=== PATIENT | female | born 1955 | race Caucasian/White ===

== ENCOUNTER → 2017-01-18 | Day surgery (SDC) | payer MEDICARE ==
[~2017-01-18] MED LIST: ATOR10TA PO; BALS750C PO; FLON0.053; GLUC1000 PO; HYDR10SO PO; HYDR12.56 PO; LACTATED RINGER'S 1000 ML INJ 1,000 ML ONE; LISI-363 PO; LORA-392 PO; LOSA25 PO; MIDAZOLAM HCL 2 MG/2 ML VIAL ONE; MS C60TA4 PO; ONABOTULINUMTOXINA INJ 100 UNITS/VIAL ONE; PREG100 PO; PROPOFOL 200 MG/20 ML AMP IV ONE; PROT40TA PO; SODIUM CHLORIDE 0.9% INJ 10 ML ONE; TIZA2TAB PO; TRAD5TAB PO; VENTAER INH
--- NOTE | 2017-01-18 08:54 | GIPROC ---
[facility] [address] [facility], [address] EGD PROCEDURE REPORT EXAM DATE: 01/18/2017 PATIENT NAME: Ashley Bernardo MR #: [id number] BIRTHDATE: 1955 ATTENDING: Samara Metz MD ORDER #: [id number] SENIOR FINANCIAL ACCOUNTANT: Kaia Moran RN and Miri Godinez [employer]OTH WINDING SUPERVISOR STATUS: outpatient INDICATIONS: The patient is a 61 yr old female here for an EGD due to gastroparesis PROCEDURE PERFORMED: EGD w/ biopsy EGD w/ directed submucosal injection(s), any substance MEDICATIONS: None and Per Anesthesia. TOPICAL ANESTHETIC: none CONSENT: The patient understands the risks and benefits of the procedure and understands that these risks include, but are not limited to: sedation, allergic reaction, infection, perforation and/or bleeding. Alternative means of evaluation and treatment include, among others: physical exam, x-rays, and/or surgical intervention. The patient elects to proceed with this endoscopic procedure. medical equipment was checked for proper function. Hand hygiene and appropriate measures for infection prevention was taken. After the risks, benefits and alternatives of the procedure were thoroughly explained, Informed consent was verified, confirmed and timeout was successfully executed by the treatment team. The patient was anesthetized with topical anesthesia and the EG-[id number] ([id number]) endoscope was introduced through the mouth and advanced to the second portion of the duodenum. Retroflexed views revealed a hiatal hernia The gastroscope was then slowly withdrawn and removed. Gastritis, healed ulcer antrum-biopsy esophagitis distal esophagus-biopsy. 100 units of BOTOX in pyloric channel -25 units/quadrant. ADVERSE EVENTS: There were no complications. IMPRESSIONS: 1. Gastritis, healed ulcer antrum-biopsy esophagitis distal esophagus-biopsy 2. Retroflexed views revealed a hiatal hernia RECOMMENDATIONS: 1. Await biopsy results. Biopsy results will not be ready for 7-10 days. If you don't hear from us in two weeks, call our office for biopsy results. 2. Anti-reflux regimen 3. Continue PPI 4. Avoid NSAIDS PATIENT CONDITION: stable DISPOSITION: Home REPEAT EXAM: EGD pending biopsy results Samara Metz MD eSigned: Samara Metz MD 01/18/2017 8:54 AM cc: Mariann Bajwa [facility] Ofelia Champion M.D. PATIENT NAME: Ashley Bernardo MR#: [id number]
== END | disposition home or self-care (01) ==
LOC: ESDC 07:27
PROVIDERS: ATTEND Internal Medicine Gastroenterology
DX: K31.84 Gastroparesis (principal); K44.9 Diaphragmatic hernia without obstruction or gangrene; K29.70 Gastritis, unspecified, without bleeding; K20.9 Esophagitis, unspecified
CPT/HCPCS: 00740; 00810; 43236; 43239; 88305; 88312; J0585; J2250; J3010; J7120

== ENCOUNTER 2017-03-21 10:37 | Emergency (ER) | payer MEDICARE ==
[~2017-03-21] VITALS: Ht 162.6 cm; Wt 113.0 kg
[~2017-03-21 10:37] MED LIST changes: -LACTATED RINGER'S 1000 ML INJ 1,000 ML ONE; -MIDAZOLAM HCL 2 MG/2 ML VIAL ONE; -ONABOTULINUMTOXINA INJ 100 UNITS/VIAL ONE; -PROPOFOL 200 MG/20 ML AMP IV ONE; -SODIUM CHLORIDE 0.9% INJ 10 ML ONE
[2017-03-21 10:43] VITALS: BP 144/71; PULSE 97; RESP 14; TEMP 98.3; O2SAT 94
[2017-03-21] MEDS ORDERED: ALPR.5 PO (10:51)
[2017-03-21] MEDS ORDERED: ZOFR4TAB PO (10:51)
[2017-03-21] MEDS ORDERED: FOLI400T PO (10:51)
[2017-03-21] MEDS ORDERED: SPIR50TA PO (10:51)
[2017-03-21] MEDS ORDERED: TRAM50TA PO (10:51)
[2017-03-21] MEDS ORDERED: FURO20TA PO (10:51)
[2017-03-21] MEDS ORDERED: LACT10SO PO (10:51)
[2017-03-21] MEDS ORDERED: PANT40TA3 PO (10:51)
[2017-03-21] MEDS ORDERED: SPIR100T PO (10:52)
[2017-03-21] MEDS ORDERED: FURO40TA PO (10:52)
[2017-03-21] MEDS ORDERED: HYDR-3583 PO (11:19)
[2017-03-21] MEDS ORDERED: VENTAER INH (11:19)
[2017-03-21] MEDS ORDERED: TIZA4CAP3 PO (11:19)
[2017-03-21] MEDS ORDERED: PRIM50TA5 PO (11:19)
[2017-03-21] MEDS ORDERED: METF1000 PO (11:19)
[2017-03-21] MEDS ORDERED: MORP1TAB26 PO (11:19)
[2017-03-21] MEDS ORDERED: FLUT1SPR5 EACH NARE (11:19)
[2017-03-21] MEDS ORDERED: ATOR10TA15 PO (11:19)
[2017-03-21] MEDS ORDERED: LOSA25TA PO (11:19)
[2017-03-21] MEDS ORDERED: LORA1TAB12 PO (11:19)
[2017-03-21] MEDS ORDERED: LYRI100C PO (11:19)
[2017-03-21] MEDS ORDERED: LISI-515 PO (11:19)
[2017-03-21] MEDS ORDERED: CIPR500T2 PO (11:19)
[2017-03-21] MEDS ORDERED: HYDR25TA5 PO (11:19)
[2017-03-21] MEDS ORDERED: TRAD5TAB PO (11:19)
[2017-03-21 11:39] LABS: BLOOD, URINE SMALL (NEG); GLUCOSE,URINE NEG (NEG); KETONE, URINE NEG (NEG); NITRITE,URINE NEG (NEG); PH, URINE 5.5 (5.0-8.5)
--- NOTE | 2017-03-21 11:52 | PD ---
HPI Chief Complaint: Complaint Time Seen by Provider: 11:04 Travel History International Travel<30 days: No Contact w/Intl Traveler<30days: No Traveled to known affect area: No History of Present Illness HPI Patient is a 61-year-old female presents emergency department for difficulty urinating, urgency, frequency and some irritation "down there" when she urinates. Patient states symptoms for the past few days constant, not associated with any abdominal pain nausea vomiting vaginal bleeding or vaginal discharge. No fevers. PFSH Past Medical History Asthma: Yes Blood Disorders: No Cancer: No Cardiovascular Problems: No Diabetes: Yes Patient Takes Glucophage: No Diminished Hearing: No Endocrine: Yes Gastrointestinal Disorders: Yes (hx of reflux and ulcers, GASTOPERESIS) GERD: Yes Glaucoma: No Genitourinary: No Hepatitis: No Hiatal Hernia: No Hypertension: Yes Immune Disorder: No Medical other: Yes (GERD, OCCASIONAL NAUSEA) Musculoskeletal: Yes (failed back syndrome) Neurologic: No Psychiatric: No Reproductive: No Respiratory: Yes (asthma) Immunizations Current: Yes Thyroid Disease: No Influenza Vaccination: Yes ?: Not Menopausal: Yes Past Surgical History Abdominal Surgery: Yes (lap cyrus) AICD: No Body Medical Devices: SPINAL STIMULATOR Cardiac Surgery: No Cholecystectomy: Yes Ear Surgery: No Endocrine Surgery: No Eye Surgery: No Genitourinary Surgery: No Gynecologic Surgery: Yes Hysterectomy: Yes Joint Replacement: No Neurologic Surgery: Yes (L4-5 LAMINECTOMY, SP. CD. STIMULATOR X3 (3 OUT)) Oral Surgery: No Pacemaker: No Thoracic Surgery: No Other Surgery: Yes Social History Alcohol Use: No Tobacco Use: No Substance Use: No Allergies-Medications (Allergen,Severity, Reaction): Coded Allergies: Adhesives (Verified Allergy, Mild, RASH, 05/29/16) Decadron (Verified Allergy, Mild, Flushing, 05/29/16) Amlodipine (Verified Allergy, Unknown, SWELLING, 05/29/16) Aspirin (Verified Allergy, Unknown, HAD CHILD, UNSURE O REACTION, ) Reported Meds & Prescriptions Reported Meds & Active Scripts Active Keflex (Cephalexin) 500 Mg Cap 500 Mg PO Q6H 7 Days Reported Ventolin Hfa 18 GM Inh (Albuterol Sulfate) 90 Mcg/Act Aer 2 Puff INH Q4-6H PRN Lorazepam 1 Mg Tab 1 Mg PO Q8H PRN Tizanidine (Tizanidine HCl) 4 Mg Cap 4 Mg PO TID Atorvastatin (Atorvastatin Calcium) 10 Mg Tab 10 Mg PO HS Primidone 50 Mg Tab 50 Mg PO BID Hydrocodone-Acetaminophen 10-325 mg Tab 1 Tab PO Q6H PRN Morphine ER (Morphine Sulfate) 60 Mg Tab 60 Mg PO Q8H Lyrica (Pregabalin) 100 Mg Cap 100 Mg PO TID Ciprofloxacin (Ciprofloxacin HCl) 500 Mg Tab 500 Mg PO BID Lisinopril 20 Mg Tab 20 Mg PO DAILY Losartan (Losartan Potassium) 25 Mg Tab 25 Mg PO DAILY Hydrochlorothiazide 25 Mg Tab 25 Mg PO DAILY Metformin (Metformin HCl) 1,000 Mg Tab 1,000 Mg PO BIDPC With meals Tradjenta (Linagliptin) 5 Mg Tab 5 Mg PO DAILY Flonase Nasal Zuni (Fluticasone Nasal Zuni) 50 Mcg/Act Zuni 50 Mcg EACH NARE BID Review of Systems Except as stated in HPI: all other systems reviewed are Neg Physical Exam Narrative GENERAL: Well-nourished, well-developed patient. SKIN: Focused skin assessment warm/dry. HEAD: Normocephalic. Atraumatic EYES: No scleral icterus. No injection or drainage. NECK: Supple, trachea midline. No JVD or lymphadenopathy. CARDIOVASCULAR: Regular rate and rhythm without murmurs, gallops, or rubs. RESPIRATORY: Breath sounds equal bilaterally. No accessory muscle use. GASTROINTESTINAL: Abdomen soft, non-tender, nondistended. MUSCULOSKELETAL: No cyanosis, or edema. BACK: Nontender without obvious deformity. No CVA tenderness. Data Data Last Documented VS Vital Signs Date Time Temp Pulse Resp B/P Pulse Ox O2 Delivery O2 Flow Rate FiO2 03/21/17 10:43 98.3 97 14 144/71 94 Room Air Orders Urinalysis - C+S If Indicated (03/21/17 10:39) Ed Poc Ultrasound (03/21/17 ) Urine Culture (03/21/17 11:24) Labs Laboratory Tests Test 03/21/17 11:24 Urine Collection Type CLEAN CATCH Urine Color YELLOW Urine Turbidity MOD Urine pH 5.5 Urine Specific Bowman 1.019 Urine Protein 300 OR GREATER mg/dL Urine Glucose (UA) NEG mg/dL Urine Ketones NEG mg/dL Urine Occult Blood SMALL Urine Nitrite NEG Urine Bilirubin NEG Urine Leukocyte Esterase SMALL Urine RBC 0-3 /hpf Urine WBC 100-200 /hpf Urine WBC Clumps MOD Urine Squamous Epithelial 6-8 /hpf Cells Urine Amorphous Sediment FEW Urine Bacteria MOD /hpf Microscopic Urinalysis Comment CULTURE INDICATED Urine Collection Time 1124 MDM Medical Decision Making Medical Screen Exam Complete: Yes Emergency Medical Condition: Yes Differential Diagnosis BV, CV, urinary tract infection. Narrative Course Patient roomed in emergency department, clumped white blood cells on her urine specimen nitrate negative. Small leukocyte esterase. 6-8 squamous epithelial cells. Could be contamination with vaginal specimen. The patient was offered a vaginal examination declined at this time. She appears well and in no obvious distress, afebrile vital signs are otherwise reassuring. Discussed them. Antibiotic therapy return to ED criteria need for follow-up with a primary care physician. She verbalized understanding and agreement. Diagnosis Primary Impression: Urinary tract infection Additional Instructions: Stop taking her Cipro. We will call you in 48 hours if your antibiotic needs changing based on your urine culture. Make sure to follow-up with your primary care physician. Return to the emergency Department with any fevers nausea or vomiting. Med/Other Pt SpecificInfo: Prescription(s) given Scripts Cephalexin (Keflex)500 Mg [id number] Mg PO Q6H 7 Days Ref 0 Prov:Dioni Payne MD 03/21/17 Disposition: 01 DISCHARGE HOME Condition: Stable Dioni Payne MD Mar 21, 2017 11:51
[2017-03-21 11:53] LABS: METHOD OF COLLECTION CLEAN CATCH; RBC, URINE 0-3 /hpf (0-3); URINE COLOR YELLOW (YELLW/STRAW); WBC, URINE 100-200 /hpf (0-5)
[2017-03-21 11:54] LABS: BACTERIA, URINE MOD /hpf; COMMENT (UR) CULTURE INDICATED; CULTURE IF INDICATED CULTURE INDICATED
[2017-03-21] MEDS ORDERED: CEPH-460 PO (12:07)
== END 2017-03-21 12:26 | disposition home or self-care (01) ==
LOC: PHED 10:37
DX: N39.0 Urinary tract infection, site not specified (principal); E11.9 Type 2 diabetes mellitus without complications; I10 Essential (primary) hypertension; Z79.84 Long term (current) use of oral hypoglycemic drugs; Z87.09 Personal history of other diseases of the respiratory system; Z87.19 Personal history of other diseases of the digestive system; Z87.39 Personal history of other diseases of the musculoskeletal system and connective tissue
CPT/HCPCS: 81001; 87086; 99284

== ENCOUNTER 2018-04-07 20:34 | Inpatient (IN) ==
--- NOTE | 2018-04-07 22:38 | ED ---
HPI General Chief complaint: Weakness Stated complaint: weakness/dizziness Time Seen by Provider: 04/07/18 21:48 Source: patient and family () Mode of arrival: ambulatory Limitations: no limitations History of Present Illness HPI Narrative: 62-year-old female who presents with 2 days of constant dizziness that waxes and wanes in severity and weakness that is generalized in nature. She reports some blurred/double vision which improves when she closed one or the other eye. No facial droop, no trouble swallowing, no dysarthria, no unilateral leg weakness, no numbness or tingling of extremities. No syncopal events or seizures. No chest pain, no shortness of breath, no headache , and no neck pain. Patient reports that her chronic low back pain is slightly worse than usual but that it is character has not changed significantly in the past 2 days. She is currently following with a neurologist who is working up her bilateral upper extremity tremors; these tremors have been present for at least 2 months and have been progressively worsening. She also reports some degree of imbalance over these past 2 months but not as bad as it was in the past 2 days. She was found to be hypoxic on room air in triage with an O2 sat that varies from 84% to 90% on room air. She does have a history of "asthma" and a remote history of cigarette smoking but she has never required oxygen at home. She has no history of pulmonary embolus or DVT. No unilateral leg swelling, no hemoptysis, no exogenous estrogen use. No history of heart failure or TN. No history of strokes. Time of onset was approximately 48 hours ago. MD Complaint: generalized weakness and difficulty walking Onset (ago): hour(s) Duration: constant Location: generalized Severity: moderate Related Data Home Medications Medication Instructions Recorded Confirmed albuterol sulfate [Ventolin HFA] 2 puff INHALATION Q4-6H PRN 04/07/18 04/07/18 atorvastatin 10 mg PO DAILY 04/07/18 04/08/18 hydrochlorothiazide 25 mg PO QAM 04/07/18 04/07/18 hydrocodone-acetaminophen 1 tab PO Q6H PRN 04/07/18 04/07/18 liothyronine 50 mcg PO DAILY 04/07/18 04/07/18 lisinopril 30 mg PO DAILY 04/07/18 04/08/18 lorazepam 1 mg PO BID 04/07/18 04/07/18 morphine 60 mg PO Q8H 04/07/18 04/07/18 oxymetazoline [Afrin 3 spray INTRANASAL Q12H PRN 04/07/18 04/07/18 (oxymetazoline)] paroxetine HCl 40 mg PO DAILY 04/07/18 04/07/18 pregabalin [Lyrica] 100 mg PO TID 04/07/18 04/07/18 primidone 50 mg PO ONCE PM 04/07/18 04/07/18 sitagliptin [Januvia] 100 mg PO DAILY 04/07/18 04/07/18 tizanidine 4 mg PO TID PRN 04/07/18 04/07/18 zolpidem 10 mg PO HS PRN 04/07/18 04/08/18 Allergies Allergy/AdvReac Type Severity Reaction Status Date / Time adhesive Allergy Mild RASH Verified 04/08/18 02:49 dexamethasone Allergy Mild Flushing Verified 04/08/18 02:49 amlodipine Allergy Unknown SWELLING Verified 04/08/18 02:49 aspirin Allergy Unknown HAD Verified 04/08/18 02:49 CHILD, UNSURE O REACTION Review of Systems ROS: all other systems reviewed are negative Constitutional Denies frequent falls, Reports lethargy and Reports weakness Eyes Reports blurry vision, Reports diplopia, Denies loss of peripheral vision and Reports requires corrective lenses ENT Reports post nasal drip, Reports sinus pressure and Reports sore throat Cardiovascular Denies chest pain, Denies diaphoresis and Reports dyspnea on exertion Respiratory Reports cough, Denies pain on inspiration, Reports dyspnea and Reports dyspnea on exertion PMFSH Medical History Medical History Asthma (Acute) Generalized anxiety disorder (Acute) H/O: hysterectomy (Acute) History of anemia (Acute) History of back pain (Acute) History of gastritis (Acute) Hypertension (Acute) Major depression (Acute) PTSD (post-traumatic stress disorder) (Acute) Tobacco use disorder, moderate, in sustained remission (Acute) Tremor (Acute) Surgical History Surgical History H/O breast biopsy (Acute) H/O laminectomy (Acute) Hx of cholecystectomy (Acute) Social History Social History Substance History: No History of Abuse Second Hand Smoke Exposure: No Smoking Status: Former smoker Cigarettes Per Day: 0.5 Years Smoked: 15 Pack-Years: 0.38 Smoking End Date: 1991 How Often Do You Have a Drink Containing Alcohol: Never Recent Travel in [place] within the Last 8 Weeks: No Recent Out of Country Travel within the Last 8 Weeks: No Immunization History Tetanus Immunization: <5 Years Exam Narrative Exam Narrative: GENERAL: Morbidly obese 62-year-old female sitting upright on stretcher, she appears older than stated age, at bedside SKIN: Focused skin assessment warm/dry. Well-healed midline lumbar scar. HEAD: Atraumatic. Normocephalic. EYES: Pupils equal and round. Normal extraocular movement and no nystagmus. No scleral icterus. No injection or drainage. ENT: No nasal bleeding or discharge. Mucous membranes pink and moist. NECK: Trachea midline. No JVD. CARDIOVASCULAR: Regular rate and rhythm. No murmur appreciated. 2+ equal pulses present in bilateral radial arteries and dorsalis pedis artery. RESPIRATORY: No accessory muscle use. Clear to auscultation. Breath sounds equal bilaterally. No wheezing and adequate airflow. GASTROINTESTINAL: Obese abdomen limits exam. Abdomen soft, non-tender, nondistended. Hepatic and splenic margins not palpable. MUSCULOSKELETAL: No obvious deformities. No clubbing. No cyanosis. No edema. NEUROLOGICAL: Awake and somewhat drowsy; patient has difficulty following sentences and requires repetition to understand their main ideas.. No obvious cranial nerve deficits. Motor grossly within normal limits. Normal sensation in all 4 extremities. Slowed but not slurred speech. I watched the patient stand up from bed under her own power and walk with a steady gait to the door the room turn around and walk back to her stretcher. Romberg negative. No pronator drift. Resting tremor present in both hands. PSYCHIATRIC: Appropriate mood and affect; insight and judgment normal. Course Reevaluation(s) Reevaluation #1: Patient has been stable while in the ED. Routine follow-up at this time reveals that she is maintaining her oxygen saturation well on 3 L nasal cannula. She continues to deny chest pain. I reviewed the results of her imaging studies and laboratory values with her. Patient has a significant hyponatremia, acute respiratory acidosis, and hypoxemia. Her CTA was negative for PE and her CT head was unremarkable although the top portion of her head was not included on the's exam. Plan to admit patient to hospital service for further evaluation and workup. Time: 00:58 Reevaluation #2: Spoke with Dr Jordan regarding the patient's case and informed him of new onset hypoxia with oxygen demand and respiratory acidosis with CO2 retention. He agrees that patient requires admission and will admit her to hospital for further evaluation and treatment. Initial Documented Vital Signs Temperature 99.3 F 04/07/18 20:41 Pulse Rate 79 04/07/18 20:41 Respiratory Rate 18 04/07/18 20:41 Blood Pressure 139/70 04/07/18 20:41 Pulse Oximetry 91 L 04/07/18 20:41 Last Documented Vital Signs Temperature 99.3 F 04/07/18 20:41 Pulse Rate 79 04/08/18 06:32 Respiratory Rate 14 04/08/18 06:32 Blood Pressure 125/53 L 04/08/18 06:32 Pulse Oximetry 96 04/08/18 06:32 Medical Decision Making MDM Narrative Medical decision making narrative: Patient symptoms are vague and difficult to workup; therefore will require a broad workup. Although her history initially sounded consistent with a possible posterior circulation stroke, neurological exam was essentially normal and there are no focal neurological signs that are consistent with a typical stroke pattern. No report of chest pain nor any obvious anginal symptoms. However the patient has a new oxygen requirement it was found to be hypoxemic on room air in triage. When she is on room air and talking she can desaturate as low as 80%; conversely on 2-3 L/min via nasal cannula the patient's SPO2 improves to 97%. Given her relative immobility and new hypoxemia with oxygen demand I will evaluate the patient for PE with a CT angiogram of her pulmonary arteries. Will obtain arterial blood gas to evaluate for CO2 retention. Differential Diagnosis Differential Diagnosis: Pulmonary embolus versus pneumonia versus COPD exacerbation versus pulmonary edema versus new onset heart failure versus new onset kidney failure versus volume overload Medical Records Medical records reviewed: Yes I reviewed the patient's medical records. Lab Data Lab results reviewed: Yes I reviewed the patient's lab results. Lab results narrative: Arterial blood gas reveals patient has a significant respiratory acidosis without metabolic compensation. She also mildly hyponatremic and has a mildly elevated creatinine. Result diagrams: 04/07/18 22:50 04/08/18 05:00 Lab Results 04/07/18 04/07/18 04/07/18 Range/Units 22:50 22:50 22:50 CBC w Diff Auto diff final WBC 6.1 (4.0-11.0) th/mm3 RBC 4.32 (4.00-5.30) mil/mm3 Hgb 11.1 L (11.6-15.3) gm/dL Hct 34.8 L (35.0-46.0) % MCV 80.5 (80.0-100.0) fL MCH 25.8 L (27.0-34.0) pg MCHC 32.0 (32.0-36.0) % RDW 15.4 (11.6-17.2) % Plt Count 281 (150-450) th/mm3 MPV 8.4 (7.0-11.0) fL Neut % (Auto) 66.1 (16.0-70.0) % Lymph % (Auto) 25.7 (9.0-44.0) % [place] % (Auto) 6.2 (0.0-8.0) % Eos % (Auto) 1.0 (0.0-4.0) % Baso % (Auto) 1.0 (0.0-2.0) % Neut # (Auto) 3.9 (1.8-7.7) th/mm3 Lymph # (Auto) 1.6 (1.0-4.8) th/mm3 [place] # (Auto) 0.4 (0.0-0.9) th/mm3 Eos # (Auto) 0.1 (0.0-0.4) th/mm3 Baso # (Auto) 0.1 (0.0-0.2) th/mm3 WBC Differential . Differential Comment . Puncture Site Patient Temperature O2 Saturation (90-100) % ABG pH (7.380-7.420) ABG pCO2 (38-42) mmHg ABG pO2 (61-120) mmHg ABG HCO3 (22-26) mmol/L ABG O2 Content (12.0-20.0) Vol % ABG Base Excess (-2-2) mmol/L ABG Methemoglobin (0-2) % Brayan Test Hemoglobin (12.0-16.0) G/DL Carboxyhemoglobin (0-4) % O2 Delivery Device Liter Flow L/M Inspired O2 % Critical Value Sodium 127 L (136-145) meq/L Potassium 4.6 (3.5-5.1) meq/L Chloride 94 L (98-107) meq/L Carbon Dioxide 27.4 (21.0-32.0) meq/L Anion Gap 6 (5-15) meq/L BUN 37 H (7-18) mg/dL Creatinine 1.60 H (0.50-1.00) mg/dL Estimated GFR 33 L (>89) mL/min POC Glucose (68-110) mg/dl Random Glucose 150 H (74-106) mg/dL Calcium 8.4 L (8.5-10.1) mg/dL Total Bilirubin 0.3 (0.2-1.0) mg/dL AST 14 L (15-37) U/L ALT 18 (10-53) U/L Alkaline Phosphatase 114 (45-117) U/L Troponin I Less than 0.02 L (0.02-0.05) ng/mL C-Reactive Protein (0.00-0.30) mg/dL B-Natriuretic Peptide 115 H (0-100) pg/mL Total Protein 7.8 (6.4-8.2) g/dL Albumin 3.5 (3.4-5.0) g/dL Urine Color (Yellw/Straw) Urine Clarity (Clear) Urine pH (5.0-8.5) Ur Specific [place] (1.002-1.035) Urine Protein (Neg-Trace) mg/dL Urine Glucose (UA) (Negative) mg/dL Urine Ketones (Negative) mg/dL Urine Occult Blood (Negative) Urine Nitrate (Negative) Urine Bilirubin (Negative) Urine Urobilinogen (Less than 2) mg/dL Ur Leukocyte Esterase (Negative) Urine RBC (0-3) /hpf Urine WBC (0-5) /hpf Ur Squamous Epith Cells (0-5) /hpf Ur Renal Epithelial Cell (None) /hpf Micro UA Comment Urine Culture Comments 04/07/18 04/07/18 04/08/18 Range/Units 22:50 22:54 02:15 CBC w Diff WBC (4.0-11.0) th/mm3 RBC (4.00-5.30) mil/mm3 Hgb (11.6-15.3) gm/dL Hct (35.0-46.0) % MCV (80.0-100.0) fL MCH (27.0-34.0) pg MCHC (32.0-36.0) % RDW (11.6-17.2) % Plt Count (150-450) th/mm3 MPV (7.0-11.0) fL Neut % (Auto) (16.0-70.0) % Lymph % (Auto) (9.0-44.0) % [place] % (Auto) (0.0-8.0) % Eos % (Auto) (0.0-4.0) % Baso % (Auto) (0.0-2.0) % Neut # (Auto) (1.8-7.7) th/mm3 Lymph # (Auto) (1.0-4.8) th/mm3 [place] # (Auto) (0.0-0.9) th/mm3 Eos # (Auto) (0.0-0.4) th/mm3 Baso # (Auto) (0.0-0.2) th/mm3 WBC Differential Differential Comment Puncture Site Right radial Right brachial Patient Temperature 98.6 98.6 O2 Saturation 88 L* 98 (90-100) % ABG pH 7.25 L* 7.23 L* (7.380-7.420) ABG pCO2 60 H* 64 H* (38-42) mmHg ABG pO2 64 110 (61-120) mmHg ABG HCO3 25 26 (22-26) mmol/L ABG O2 Content 13.1 14.6 (12.0-20.0) Vol % ABG Base Excess -1.0 -0.9 (-2-2) mmol/L ABG Methemoglobin 1.2 0.5 (0-2) % Brayan Test Y Y Hemoglobin 10.5 L 10.5 L (12.0-16.0) G/DL Carboxyhemoglobin 1.6 1.4 (0-4) % O2 Delivery Device Nasal cannula Liter Flow 3.00 L/M Inspired O2 21 % Critical Value Yes Yes Sodium (136-145) meq/L Potassium (3.5-5.1) meq/L Chloride (98-107) meq/L Carbon Dioxide (21.0-32.0) meq/L Anion Gap (5-15) meq/L BUN (7-18) mg/dL Creatinine (0.50-1.00) mg/dL Estimated GFR (>89) mL/min POC Glucose (68-110) mg/dl Random Glucose (74-106) mg/dL Calcium (8.5-10.1) mg/dL Total Bilirubin (0.2-1.0) mg/dL AST (15-37) U/L ALT (10-53) U/L Alkaline Phosphatase (45-117) U/L Troponin I (0.02-0.05) ng/mL C-Reactive Protein (0.00-0.30) mg/dL B-Natriuretic Peptide (0-100) pg/mL Total Protein (6.4-8.2) g/dL Albumin (3.4-5.0) g/dL Urine Color Yellow (Yellw/Straw) Urine Clarity Clear (Clear) Urine pH 5.0 (5.0-8.5) Ur Specific [place] 1.010 (1.002-1.035) Urine Protein Negative (Neg-Trace) mg/dL Urine Glucose (UA) Negative (Negative) mg/dL Urine Ketones Negative (Negative) mg/dL Urine Occult Blood Negative (Negative) Urine Nitrate Negative (Negative) Urine Bilirubin Negative (Negative) Urine Urobilinogen 0.2 (Less than 2) mg/dL Ur Leukocyte Esterase Negative (Negative) Urine RBC 0-3 (0-3) /hpf Urine WBC 0-5 (0-5) /hpf Ur Squamous Epith Cells 0-5 (0-5) /hpf Ur Renal Epithelial Cell 1-5 H (None) /hpf Micro UA Comment Culture not ind Urine Culture Comments Culture not ind 04/08/18 04/08/18 04/08/18 Range/Units 05:00 05:28 07:31 CBC w Diff WBC (4.0-11.0) th/mm3 RBC (4.00-5.30) mil/mm3 Hgb (11.6-15.3) gm/dL Hct (35.0-46.0) % MCV (80.0-100.0) fL MCH (27.0-34.0) pg MCHC (32.0-36.0) % RDW (11.6-17.2) % Plt Count (150-450) th/mm3 MPV (7.0-11.0) fL Neut % (Auto) (16.0-70.0) % Lymph % (Auto) (9.0-44.0) % [place] % (Auto) (0.0-8.0) % Eos % (Auto) (0.0-4.0) % Baso % (Auto) (0.0-2.0) % Neut # (Auto) (1.8-7.7) th/mm3 Lymph # (Auto) (1.0-4.8) th/mm3 [place] # (Auto) (0.0-0.9) th/mm3 Eos # (Auto) (0.0-0.4) th/mm3 Baso # (Auto) (0.0-0.2) th/mm3 WBC Differential Differential Comment Puncture Site Right brachial Patient Temperature 98.6 O2 Saturation 93 (90-100) % ABG pH 7.24 L* (7.380-7.420) ABG pCO2 63 H* (38-42) mmHg ABG pO2 79 (61-120) mmHg ABG HCO3 26 (22-26) mmol/L ABG O2 Content 13.5 (12.0-20.0) Vol % ABG Base Excess -0.6 (-2-2) mmol/L ABG Methemoglobin 1.3 (0-2) % Brayan Test Y Hemoglobin 10.2 L (12.0-16.0) G/DL Carboxyhemoglobin 1.5 (0-4) % O2 Delivery Device Nasal cannula Liter Flow 1.00 L/M Inspired O2 % Critical Value Yes Sodium 130 L (136-145) meq/L Potassium 4.5 (3.5-5.1) meq/L Chloride 98 (98-107) meq/L Carbon Dioxide 26.8 (21.0-32.0) meq/L Anion Gap 5 (5-15) meq/L BUN 32 H (7-18) mg/dL Creatinine 1.40 H (0.50-1.00) mg/dL Estimated GFR 38 L (>89) mL/min POC Glucose 127 H (68-110) mg/dl Random Glucose 111 H (74-106) mg/dL Calcium 8.0 L (8.5-10.1) mg/dL Total Bilirubin (0.2-1.0) mg/dL AST (15-37) U/L ALT (10-53) U/L Alkaline Phosphatase (45-117) U/L Troponin I (0.02-0.05) ng/mL C-Reactive Protein 1.14 H (0.00-0.30) mg/dL B-Natriuretic Peptide (0-100) pg/mL Total Protein (6.4-8.2) g/dL Albumin (3.4-5.0) g/dL Urine Color (Yellw/Straw) Urine Clarity (Clear) Urine pH (5.0-8.5) Ur Specific [place] (1.002-1.035) Urine Protein (Neg-Trace) mg/dL Urine Glucose (UA) (Negative) mg/dL Urine Ketones (Negative) mg/dL Urine Occult Blood (Negative) Urine Nitrate (Negative) Urine Bilirubin (Negative) Urine Urobilinogen (Less than 2) mg/dL Ur Leukocyte Esterase (Negative) Urine RBC (0-3) /hpf Urine WBC (0-5) /hpf Ur Squamous Epith Cells (0-5) /hpf Ur Renal Epithelial Cell (None) /hpf Micro UA Comment Urine Culture Comments Imaging Data Radiologist's impression: Chest X-Ray 04/07/18 22:26 CONCLUSION: No evidence of acute cardiopulmonary process. Head CT 04/07/18 22:26 CONCLUSION: 1. No acute intracranial abnormality is identified. 2. Please note that the entire superior aspect of the head was not imaged. . Chest CTA 04/08/18 00:18 CONCLUSION: 1. No PE or acute abnormality is identified to explain the patient's shortness of breath. 2. Intra and extrahepatic bile duct dilatation in this patient post cholecystectomy. The biliary system was dilated to some degree on the prior study from July 2014 suggesting that this is a chronic finding. 3. Coronary artery calcification. ECG Data EKG Prior to Arrival: No Attestation: I personally reviewed and interpreted this ECG as follows: Interpretation: Normal sinus rhythm, rate 76 bpm, WI interval 202 ms, QRS duration 88 ms, QTc 380 ms, no ST segment or T-wave changes, no ST segment elevation or depression, not a STEMI Discharge Plan Discharge Disposition Patient Disposition: 30 Still Patient Physicians Team ED Provider: Gonzalez Mccabe Primary Care Provider: Yash Brock Attending Provider: Jackson Crow Other Providers: Ba Dutton David Discharge Interventions Interventions: ED Discharge Assessment Last Done: 04/08/18 07:20 Vital Signs Last Done: 04/08/18 01:42 Status ED Status: Left Department Discharge Information Discharge Date/Time: 04/08/18 07:15
--- NOTE | 2018-04-07 22:50 | XR ---
EXAM DATE: 04/07/2018 10:47 PM EDT AGE/SEX: 62 years / Female INDICATIONS: Short of breath and dizziness since yesterday. CLINICAL DATA: This is the patient's initial encounter. Patient reports that signs and symptoms have been present for 1 day and indicates a pain score of 0/10. MEDICAL/SURGICAL HISTORY: None. None. COMPARISON: No prior exams available for comparison. FINDINGS: A single AP view of the chest demonstrates the lungs to be symmetrically aerated without evidence of mass, infiltrate or effusion. The cardiomediastinal contours are unremarkable. Osseous structures a re intact. CONCLUSION: No evidence of acute cardiopulmonary process. Electronically signed by: Kelvin Oakley MD 04/07/2018 10:48 PM EDT
[2018-04-07 23:04] LABS: Baso # (Auto) 0.1 th/mm3 (0.0-0.2); Eos # (Auto) 0.1 th/mm3 (0.0-0.4); Hematocrit 34.8 % (35.0-46.0); Hemoglobin 11.1 gm/dL (11.6-15.3); Lymph # (Auto) 1.6 th/mm3 (1.0-4.8); Lymph % (Auto) 25.7 % (9.0-44.0); Mean Corpuscular Hemoglobin 25.8 pg (27.0-34.0); Mean Corpuscular Volume 80.5 fL (80.0-100.0); Mean Platelet Volume 8.4 fL (7.0-11.0); Mono # (Auto) 0.4 th/mm3 (0.0-0.9); Mono % (Auto) 6.2 % (0.0-8.0); Neut # (Auto) 3.9 th/mm3 (1.8-7.7); Neut % (Auto) 66.1 % (16.0-70.0); Platelet Count 281 th/mm3 (150-450); Red Blood Count 4.32 mil/mm3 (4.00-5.30); Red Cell Distribution Width 15.4 % (11.6-17.2); White Blood Count 6.1 th/mm3 (4.0-11.0)
[2018-04-07 23:07] LABS: ABG PCO2 60 mmHg (38-42); ABG PO2 64 mmHg (61-120)
[2018-04-07 23:08] LABS: Bilirubin,Urine Negative (Negative); Clarity,Urine Clear (Clear); Color,Urine Yellow (Yellw/Straw); Glucose,Urine (UA) Negative (Negative); Leukocyte Esterase,Urine Negative (Negative); Nitrite,Urine Negative (Negative); Urobilinogen,Urine 0.2 mg/dL (Less than 2)
[2018-04-07 23:12] LABS: Chloride 94 meq/L (98-107); Potassium 4.6 meq/L (3.5-5.1); Sodium 127 meq/L (136-145)
[2018-04-07 23:15] LABS: Calcium 8.4 mg/dL (8.5-10.1)
[2018-04-07 23:16] LABS: Albumin 3.5 g/dL (3.4-5.0); Anion Gap 6 meq/L (5-15); Blood Urea Nitrogen 37 mg/dL (7-18); Carbon Dioxide 27.4 meq/L (21.0-32.0); Glucose,Random 150 mg/dL (74-106); RBC,Urine 0-3 /hpf (0-3); Squamous Epithelial Cell,Urine 0-5 /hpf (0-5); WBC,Urine 0-5 /hpf (0-5)
[2018-04-07 23:19] LABS: Alanine Aminotransferase 18 U/L (10-53); Aspartate Aminotransferase 14 U/L (15-37); Glomerular Filtration Rate 33 mL/min (>89)
[2018-04-07 23:20] LABS: Total Protein 7.8 g/dL (6.4-8.2)
[2018-04-07 23:22] LABS: Alkaline Phosphatase 114 U/L (45-117)
--- NOTE | 2018-04-08 00:38 | CT ---
EXAM DATE: 04/08/2018 12:23 AM EDT AGE/SEX: 62 years / Female INDICATIONS: Dizziness. CLINICAL DATA: This is the patient's initial encounter. Patient reports that signs and symptoms have been present for 1 day and indicates a pain score of 0/10. MEDICAL/SURGICAL HISTORY: Asthma. Gastritis. None. RADIATION DOSE: 69.65 CTDI (mGy) COMPARISON: No prior exams available for comparison. TECHNIQUE: CT of the head without contrast. Using automated exposure control and adjustment of the mA and/or kV according to patient size, radiation dose was kept as low as reasonably achievable to ob tain optimal diagnostic quality images. DICOM format image data is available electronically for revi ew and comparison. FINDINGS: Please note that the entire superior aspect of the head was not imaged. Cerebrum: The ventricles are normal. No midline shift, mass lesion, hemorrhage or acute infarction. No extraaxial fluid collections are seen. Posterior Fossa: The cerebellum and brainstem demonstrate no acute abnormality. The 4th ventricle is midline. The cerebellopontine angle is within normal limits. Extracranial: The visualized sinuses are clear. Skull: The calvaria is intact. No skull fracture. CONCLUSION: 1. No acute intracranial abnormality is identified. 2. Please note that the entire superior aspect of the head was not imaged. . Electronically signed by: Ba Mackay MD 04/08/2018 12:36 AM EDT
--- NOTE | 2018-04-08 00:43 | CT ---
EXAM DATE: 04/08/2018 12:22 AM EDT AGE/SEX: 62 years / Female INDICATIONS: Shortness of breath. CLINICAL DATA: This is the patient's initial encounter. Patient reports that signs and symptoms have been present for 1 day and indicates a pain score of 2/10. MEDICAL/SURGICAL HISTORY: Asthma. None. RADIATION DOSE: 21.83 CTDI (mGy) COMPARISON: C, CTA ABDOMEN & PELVIS W 3D RECON, 08/16/2014. . TECHNIQUE: Volumetric scanning was performed using a multi-row detector CT scanner during bolus infu bindu of 75 ml Visipaque 320 (iodixanol) nonionic water-soluble contrast as a single exam dose. The d dwayne was post processed with a variety of visualization algorithms including full volume maximum inten sity projection and sliding thin slab reformation. Using automated exposure control and adjustment o f the mA and/or kV according to patient size, radiation dose was kept as low as reasonably achievable to obtain optimal diagnostic quality images. DICOM format image data is available electronically fo r review and comparison. FINDINGS: Pulmonary Arteries: No filling defect is identified through the segmental and some of the subsegmenta l level pulmonary arteries. Lungs: No consolidation or pneumothorax is identified. Mediastinum: The heart and great vessels demonstrate no acute abnormality. No lymphadenopathy is vis ualized. There is coronary artery calcification. Pleurae: No pleural effusion or pleural thickening. Axillae: No lymphadenopathy. Musculoskeletal: No acute osseous abnormality is identified. There are degenerative changes of the t horacic spine. Other: Visualized upper abdominal structures demonstrate no acute abnormality. Gallbladder is absent with clips in the gallbladder fossa and intra and extrahepatic bile duct dilatation with the mid com mon bile duct measuring up to 14 mm. The common bile duct was dilated to some degree on the prior mathew dy. CONCLUSION: 1. No PE or acute abnormality is identified to explain the patient's shortness of breath. 2. Intra and extrahepatic bile duct dilatation in this patient post cholecystectomy. The biliary sys tem was dilated to some degree on the prior study from July 2014 suggesting that this is a chroni c finding. 3. Coronary artery calcification. Electronically signed by: Ba Mackay MD 04/08/2018 12:42 AM EDT
[2018-04-08 02:28] LABS: ABG Base Excess -0.9 mmol/L (-2-2); ABG PCO2 64 mmHg (38-42); ABG PO2 110 mmHg (61-120)
[2018-04-08] MEDS ORDERED: LORazepam 1 MG Tablet PO PRN (02:37)
[2018-04-08] MEDS: Sod Chloride 0.9% Inj 1,000 ML IV.CONT SCH ×3 (02:57→22:35)
[2018-04-08 05:17] LABS: Potassium 4.5 meq/L (3.5-5.1)
[2018-04-08 05:20] LABS: Carbon Dioxide 26.8 meq/L (21.0-32.0)
[2018-04-08 05:23] LABS: C-Reactive Protein 1.14 mg/dL (0.00-0.30)
[2018-04-08 05:41] LABS: ABG Base Excess -0.6 mmol/L (-2-2); ABG PCO2 63 mmHg (38-42); ABG PO2 79 mmHg (61-120)
--- NOTE | 2018-04-08 05:47 | P.HP ---
History of Present Illness Service: [facility] Adult med Primary Care Physician: Yash Brock MD Chief Complaint: weakness, double vision, tremors History of Present Illness: 62-year-old morbidly obese female with underlying major depression, PTSD, chronic back pain leading to disability presents with 2 days of constant dizziness that waxes and wanes in severity and weakness that is generalized in nature. She reports some blurred/double vision which improves when she closed one or the other eye. No facial droop, no trouble swallowing, no dysarthria, no unilateral leg weakness, no numbness or tingling of extremities. No syncopal events or seizures. No chest pain, no shortness of breath, no headache , and no neck pain. Patient reports that her chronic low back pain is slightly worse than usual but that its character has not changed significantly in the past 2 days. She is currently following with a neurologist who is working up her bilateral upper extremity tremors; these tremors have been present for at least 2 months and have been progressively worsening and of late have been involving lower extremities as well. She also reports some degree of imbalance over these past 2 months but not as bad as it was in the past 2 days. She was found to be hypoxic on room air in triage with an O2 sat that varies from 84% to 90% on room air. She does have a history of "asthma" and a remote history of cigarette smoking but she has never required oxygen at home. She has no history of pulmonary embolus or DVT. No unilateral leg swelling, no hemoptysis , no exogenous estrogen use. No history of heart failure or HI. No history of strokes. Time of onset was approximately 48 hours ago. It is noted on outpatient record review that her sats are often in the low 90s when she is in the office. 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 She likely has some underlying obesity/hypoxemia syndrome. She reports that she has never had a sleep study and doesn't wear CPAP. ER workup negative for pulmonary embolus or any significant acute findings in the chest. CT brain negative for acute findings. Creatinine a bit elevated at 1.6 which is above her baseline creatinine of around 1-1.1. She is mildly anemic which is chronic and stable. - Diagnosis (1) Transient neurological symptoms (2) Hypoxia (3) Polypharmacy (4) Renal insufficiency, mild Review of Systems Constitutional: Reports body ache(s), Reports lack of energy, Reports weakness Eyes: Reports blurry vision, Reports double vision, Denies blind spots, Denies bulging eyes, Denies change in vision, Denies discharge, Denies dry eyes, Denies floaters, Denies irritation, Denies itchy eyes, Denies loss of vision, Denies pain, Denies requires corrective lenses, Denies sensitivity to light, Denies other Ears, Nose, Mouth, and Throat: Denies abnormal hearing, Denies bleeding gums, Denies bad breath, Denies change in voice, Denies dental pain, Denies difficulty swallowing, Denies dizziness, Denies dry mouth, Denies ear discharge , Denies ear pain, Denies facial pain, Denies headache(s), Denies hearing loss, Denies hoarseness, Denies lip swelling, Denies nosebleed, Denies mouth lesions, Denies mouth pain, Denies nasal congestion, Denies nasal discharge, Denies nasal obstruction, Denies nasal trauma, Denies neck lump, Denies neck pain, Denies nose pain, Denies pain with swallowing, Denies poor balance, Denies post nasal drip, Denies ringing in the ears, Denies sinus pain, Denies sinus pressure , Denies sore throat, Denies throat swelling, Denies tongue swelling, Denies other Cardiovascular: Reports lightheadedness, Denies chest pain, Denies chest pain at rest, Denies chest pain with activity, Denies excessive sweating, Denies fainting, Denies fast heart rate, Denies foot swelling, Denies generalized swelling, Denies irregular heart rhythm, Denies leg pain with activity, Denies leg sores, Denies leg swelling, Denies radiating jaw, neck or arm pain, Denies rapid, pounding, or irregular heartbeat, Denies shortness of breath, Denies shortness of breath with activity, Denies shortness of breath when lying down, Denies shortness of breath causing sudden awakening, Denies slow heart rate, Denies other Respiratory: Denies change in phlegm color, Denies chest congestion, Denies cough, Denies coughing up blood, Denies excessive phlegm production, Denies pain on inspiration, Denies pain with cough, Denies shortness of breath, Denies shortness of breath with activity, Denies snoring, Denies stridor, Denies wheezing, Denies other Musculoskeletal: Reports abnormal walking, Reports joint pain, Reports muscle cramps, Reports neck pain Neurologic: Reports dizziness, Reports other visual disturbances, Reports restless legs, Reports tremor(s), Reports unsteadiness, Reports weakness, Denies abnormal hearing, Denies abnormal movements, Denies abnormal speech, Denies abnormal walking, Denies behavioral changes, Denies burning sensations, Denies confusion, Denies fainting, Denies frequent falls, Denies headache(s), Denies lack of coordination, Denies localized weakness, Denies loss of vision, Denies memory loss, Denies numbness, Denies radiating pain, Denies convulsions, Denies seizure-like activity, Denies sensory deficit, Denies tingling, Denies tingling/numbness/burning sensations, Denies other Psychiatric: Reports anxiety, Reports depression, Reports difficulty concentrating Endocrine: Denies cold intolerance, Denies excessive sweating, Denies flushing, Denies heat intolerance, Denies increased hunger, Denies increased thirst, Denies increased urination, Denies rapid, pounding, or irregular heartbeat, Denies other PMFSH - History History Provided By: Patient - Medical History Medical History: Medical History (Last Updated 04/08/18 @ 05:36 by Jackson Crow MD, PhD) Asthma Generalized anxiety disorder H/O: hysterectomy History of anemia History of back pain History of gastritis Hypertension Major depression PTSD (post-traumatic stress disorder) Tobacco use disorder, moderate, in sustained remission Tremor - Surgical History Surgical History: Surgical History (Last Updated 04/08/18 @ 05:36 by Jackson Crow MD, PhD) H/O breast biopsy H/O laminectomy Hx of cholecystectomy - Tobacco History Second Hand Smoke Exposure: No Tobacco Use In Past 30 Days: No Smoking Status: Former smoker Cigarettes Per Day: 0.5 Years Smoked: 15 Smoking End Date: 1991 - Alcohol History How Often Do You Have a Drink Containing Alcohol: Never - Substance Use History Substance History: No History of Abuse - Travel History Recent Travel in the [facility] Within the Last 8 Weeks: No Recent Travel Out of the Country Within the Last 8 Weeks: No - Immunization History Tetanus Immunization: <5 Years Medications and Allergies Active Medications: Active Medications Hydrocodone Bitart/Acetaminophen (Harrison 10/325) 1 tab PO Q6H PRN PRN Reason: breakthrough pain level 3-10 Albuterol (Duoneb Neb (Prn)) 1 ampul NEB Q4HR NEB PRN PRN Reason: wheeze, sob Sodium Chloride (Ns Inj) 1,000 mls @ 100 mls/hr IV.CONT .Q10H [place] Last Admin: 04/08/18 02:57 Dose: 100 mls/hr Liothyronine Sodium (Cytomel) 50 mcg PO DAILY@0600 [place] Lisinopril (Prinivil) 30 mg PO DAILY [place] Lorazepam (Ativan) 1 mg PO BID PRN PRN Reason: ANXIETY Morphine Sulfate (Oramorph Sr) 60 mg PO Q8HR [place] Paroxetine HCl (Paxil) 40 mg PO DAILY [place] Pregabalin (Lyrica) 100 mg PO TID [place] Primidone (Mysoline) 50 mg PO HS [place] Sodium Chloride (Ns Flush) 2 ml IV.FLUSH PRN PRN PRN Reason: FLUSH AFTER USING IV ACCESS Tizanidine HCl (Zanaflex) 4 mg PO TID PRN PRN Reason: MUSCLE SPASM Allergies Allergy/AdvReac Type Severity Reaction Status Date / Time adhesive Allergy Mild RASH Verified 04/08/18 02:49 dexamethasone Allergy Mild Flushing Verified 04/08/18 02:49 amlodipine Allergy Unknown SWELLING Verified 04/08/18 02:49 aspirin Allergy Unknown HAD Verified 04/08/18 02:49 CHILD, UNSURE O REACTION Home Medications Medication Instructions Recorded Confirmed Type albuterol sulfate [Ventolin HFA] 2 puff INHALATION Q4-6H PRN 04/07/18 04/07/18 History atorvastatin 10 mg PO DAILY 04/07/18 04/08/18 History hydrochlorothiazide 25 mg PO QAM 04/07/18 04/07/18 History hydrocodone-acetaminophen 1 tab PO Q6H PRN 04/07/18 04/07/18 History liothyronine 50 mcg PO DAILY 04/07/18 04/07/18 History lisinopril 30 mg PO DAILY 04/07/18 04/08/18 History lorazepam 1 mg PO BID 04/07/18 04/07/18 History morphine 60 mg PO Q8H 04/07/18 04/07/18 History oxymetazoline [Afrin 3 spray INTRANASAL Q12H PRN 04/07/18 04/07/18 History (oxymetazoline)] paroxetine HCl 40 mg PO DAILY 04/07/18 04/07/18 History pregabalin [Lyrica] 100 mg PO TID 04/07/18 04/07/18 History primidone 50 mg PO ONCE PM 04/07/18 04/07/18 History sitagliptin [Januvia] 100 mg PO DAILY 04/07/18 04/07/18 History tizanidine 4 mg PO TID PRN 04/07/18 04/07/18 History zolpidem 10 mg PO HS PRN 04/07/18 04/08/18 History Exam Vital signs: Vital Signs 04/07/18 20:41 04/07/18 23:10 04/07/18 23:14 Temperature 99.3 F Pulse Rate 79 88 Respiratory Rate 18 18 Blood Pressure 139/70 158/63 H Pulse Oximetry 91 L 95 96 04/08/18 01:42 04/08/18 02:20 04/08/18 02:30 Temperature Pulse Rate 78 75 77 Respiratory Rate 18 18 16 Blood Pressure 148/73 H 115/60 Pulse Oximetry 98 Intake & Output 04/07/18 04/07/18 04/08/18 06:59 18:59 06:59 Weight 148.6 kg Narrative: GENERAL: Morbidly obese, somewhat lethargic but arouses to voice. No acute distress. Does become somewhat anxious at times during interview process. SKIN: Warm and dry. HEAD: Atraumatic. Normocephalic. Corrective eyewear in place. EYES: Pupils equal and round. No scleral icterus. No injection or drainage. Slight lateral nystagmus at times. ENT: No nasal bleeding or discharge. Mucous membranes pink and moist. NECK: Trachea midline. No JVD. CARDIOVASCULAR: Regular rate and rhythm. No significant murmurs. RESPIRATORY: No accessory muscle use. Clear to auscultation. Breath sounds equal bilaterally. Decreased breath sound at bases. GASTROINTESTINAL: Abdomen soft, non-tender, nondistended. Hepatic and splenic margins not palpable. Bowel sounds normal. MUSCULOSKELETAL: Extremities without clubbing, cyanosis, or edema. No obvious deformities. Moves all extremities well. Slight tremor at rest noted in hands and occasionally and feet. She occasionally demonstrates a jerking motion particularly of her left lower extremity. NEUROLOGICAL: Awake and alert. No obvious cranial nerve deficits. Motor grossly within normal limits. Five out of 5 muscle strength in the arms and legs. Normal speech. She does have periods where she tends to stare off into space at times and needs to be redirected or refocused. PSYCHIATRIC: Appropriate mood and affect; insight and judgment normal. Results - Labs CBC & Chem 7: 04/07/18 22:50 04/08/18 05:00 Labs: Laboratory Results - last 24 hr 04/07/18 04/07/18 04/07/18 22:50 22:50 22:50 CBC w Diff Auto diff final WBC 6.1 RBC 4.32 Hgb 11.1 L Hct 34.8 L MCV 80.5 MCH 25.8 L MCHC 32.0 RDW 15.4 Plt Count 281 MPV 8.4 Neut % (Auto) 66.1 Lymph % (Auto) 25.7 [place] % (Auto) 6.2 Eos % (Auto) 1.0 Baso % (Auto) 1.0 Neut # (Auto) 3.9 Lymph # (Auto) 1.6 [place] # (Auto) 0.4 Eos # (Auto) 0.1 Baso # (Auto) 0.1 WBC Differential . Differential Comment . Puncture Site Patient Temperature O2 Saturation ABG pH ABG pCO2 ABG pO2 ABG HCO3 ABG O2 Content ABG Base Excess ABG Methemoglobin Brayan Test Hemoglobin Carboxyhemoglobin O2 Delivery Device Liter Flow Inspired O2 Critical Value Sodium 127 L Potassium 4.6 Chloride 94 L Carbon Dioxide 27.4 Anion Gap 6 BUN 37 H Creatinine 1.60 H Estimated GFR 33 L Random Glucose 150 H Calcium 8.4 L Total Bilirubin 0.3 AST 14 L ALT 18 Alkaline Phosphatase 114 Troponin I Less than 0.02 L B-Natriuretic Peptide 115 H Total Protein 7.8 Albumin 3.5 Urine Color Urine Clarity Urine pH Ur Specific [place] Urine Protein Urine Glucose (UA) Urine Ketones Urine Occult Blood Urine Nitrate Urine Bilirubin Urine Urobilinogen Ur Leukocyte Esterase Urine RBC Urine WBC Ur Squamous Epith Cells Ur Renal Epithelial Cell Micro UA Comment Urine Culture Comments 04/07/18 04/07/18 04/08/18 22:50 22:54 02:15 CBC w Diff WBC RBC Hgb Hct MCV MCH MCHC RDW Plt Count MPV Neut % (Auto) Lymph % (Auto) [place] % (Auto) Eos % (Auto) Baso % (Auto) Neut # (Auto) Lymph # (Auto) [place] # (Auto) Eos # (Auto) Baso # (Auto) WBC Differential Differential Comment Puncture Site Right radial Right brachial Patient Temperature 98.6 98.6 O2 Saturation 88 L* 98 ABG pH 7.25 L* 7.23 L* ABG pCO2 60 H* 64 H* ABG pO2 64 110 ABG HCO3 25 26 ABG O2 Content 13.1 14.6 ABG Base Excess -1.0 -0.9 ABG Methemoglobin 1.2 0.5 Brayan Test Y Y Hemoglobin 10.5 L 10.5 L Carboxyhemoglobin 1.6 1.4 O2 Delivery Device Nasal cannula Liter Flow 3.00 Inspired O2 21 Critical Value Yes Yes Sodium Potassium Chloride Carbon Dioxide Anion Gap BUN Creatinine Estimated GFR Random Glucose Calcium Total Bilirubin AST ALT Alkaline Phosphatase Troponin I B-Natriuretic Peptide Total Protein Albumin Urine Color Yellow Urine Clarity Clear Urine pH 5.0 Ur Specific [place] 1.010 Urine Protein Negative Urine Glucose (UA) Negative Urine Ketones Negative Urine Occult Blood Negative Urine Nitrate Negative Urine Bilirubin Negative Urine Urobilinogen 0.2 Ur Leukocyte Esterase Negative Urine RBC 0-3 Urine WBC 0-5 Ur Squamous Epith Cells 0-5 Ur Renal Epithelial Cell 1-5 H Micro UA Comment Culture not ind Urine Culture Comments Culture not ind 04/08/18 05:00 CBC w Diff WBC RBC Hgb Hct MCV MCH MCHC RDW Plt Count MPV Neut % (Auto) Lymph % (Auto) [place] % (Auto) Eos % (Auto) Baso % (Auto) Neut # (Auto) Lymph # (Auto) [place] # (Auto) Eos # (Auto) Baso # (Auto) WBC Differential Differential Comment Puncture Site Patient Temperature O2 Saturation ABG pH ABG pCO2 ABG pO2 ABG HCO3 ABG O2 Content ABG Base Excess ABG Methemoglobin Brayan Test Hemoglobin Carboxyhemoglobin O2 Delivery Device Liter Flow Inspired O2 Critical Value Sodium 130 L Potassium 4.5 Chloride 98 Carbon Dioxide 26.8 Anion Gap 5 BUN 32 H Creatinine Estimated GFR Random Glucose 111 H Calcium 8.0 L Total Bilirubin AST ALT Alkaline Phosphatase Troponin I B-Natriuretic Peptide Total Protein Albumin Urine Color Urine Clarity Urine pH Ur Specific [place] Urine Protein Urine Glucose (UA) Urine Ketones Urine Occult Blood Urine Nitrate Urine Bilirubin Urine Urobilinogen Ur Leukocyte Esterase Urine RBC Urine WBC Ur Squamous Epith Cells Ur Renal Epithelial Cell Micro UA Comment Urine Culture Comments - Imaging Impressions Chest X-Ray 04/07/18 22:26 CONCLUSION: No evidence of acute cardiopulmonary process. Head CT 04/07/18 22:26 CONCLUSION: 1. No acute intracranial abnormality is identified. 2. Please note that the entire superior aspect of the head was not imaged. . Chest CTA 04/08/18 00:18 CONCLUSION: 1. No PE or acute abnormality is identified to explain the patient's shortness of breath. 2. Intra and extrahepatic bile duct dilatation in this patient post cholecystectomy. The biliary system was dilated to some degree on the prior study from July 2014 suggesting that this is a chronic finding. 3. Coronary artery calcification. Caprini VTE Risk Assessment Caprini VTE Risk Assessment: Moderate/High Risk (score >= 2) Caprini Risk Assessment Model: Point Value = 1 Point Value = 2 Point Value = 3 Point Value = 5 Age 41-60 Minor surgery BMI > 25 kg/m2 Swollen legs Varicose veins or History of unexplained or recurrent spontaneous Oral contraceptives or hormone replacement Sepsis (< 1 month) Serious lung disease, including pneumonia (< 1 month) Abnormal pulmonary function Acute myocardial infarction Congestive heart failure (< 1 month) History of inflammatory bowel disease Medical patient at bed rest Age 61-74 Arthroscopic surgery Major open surgery (> 45 min) Laparoscopic surgery (> 45 min) Malignancy Confined to bed (> 72 hours) Immobilizing plaster cast Central venous access Age >= 75 History of VTE Family history of VTE Factor V Leiden Prothrombin [id number] Lupus anticoagulant Anticardiolipin antibodies Elevated serum homocysteine Heparin-induced thrombocytopenia Other congenital or acquired thrombophilia Stroke (< 1 month) Elective arthroplasty Hip, pelvis, or leg fracture Acute spinal cord injury (< 1 month) Prophylaxis Regimen: Total Risk Factor Score Risk Level Prophylaxis Regimen 0-1 Low Early ambulation 2 Moderate Order ONE of the following: *Sequential Compression Device (SCD) *Heparin 5000 units SQ BID 3-4 Higher Order ONE of the following medications: *Heparin 5000 units SQ TID *Enoxaparin/Lovenox 40 mg SQ daily (WT < 150 kg, CrCl > 30 mL/min) *Enoxaparin/Lovenox 30 mg SQ daily (WT < 150 kg, CrCl > 10-29 mL/min) *Enoxaparin/Lovenox 30 mg SQ BID (WT < 150 kg, CrCl > 30 mL/min) AND/OR *Sequential Compression Device (SCD) 5 or more Highest Order ONE of the following medications: *Heparin 5000 units SQ TID (Preferred with Epidurals) *Enoxaparin/Lovenox 40 mg SQ daily (WT < 150 kg, CrCl > 30 mL/min) *Enoxaparin/Lovenox 30 mg SQ daily (WT < 150 kg, CrCl > 10-29 mL/min) *Enoxaparin/Lovenox 30 mg SQ BID (WT < 150 kg, CrCl > 30 mL/min) AND *Sequential Compression Device (SCD) Assessment and Plan - Assessment (1) Transient neurological symptoms Code(s): R29.818 - Other symptoms and signs involving the nervous system Status: Acute Plan: Likely multifactorial associated with her pain medications as well as muscle relaxants and tranquilizers. Still does not completely explain the relative new onset diplopia and occasional ballistic type movement of her left lower extremity. We will have neurology see the patient. Consider MRI and further workup per neurology advisement. She reportedly has seen Dr. Holcomb as an outpatient for the tremor which is currently being worked up by him. It is noted the patient appears somewhat anxious at times and there may be some supratentorial component as well. I will try to decrease the doses of her various pain medications/muscle relaxant/tranquilizer. (2) Hypoxia Code(s): R09.02 - Hypoxemia Status: Acute Plan: Rapidly improved with supplemental oxygen. She appears to be somewhat hypercapnic and mildly acidotic. Repeat ABG on lower supplemental oxygen is pending. 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 She would benefit from outpatient sleep study as well. 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 She will follow-up with her outpatient pain management physician for fine tuning. (4) Renal insufficiency, mild Code(s): N28.9 - Disorder of kidney and ureter, unspecified Status: Acute Plan: Somewhat improved with gentle IV fluid. Continue to follow. - Plan Code Status: Full Discussed Condition With: Patient, ER provider, patient's nurse and respiratory therapist.
[2018-04-08] MEDS ORDERED: Morphine Sulfate 15 MG SR Tablet PO SCH (06:00)
[2018-04-08] MEDS ORDERED: Morphine Sulfate 60 MG SR Tablet PO SCH (06:00)
[2018-04-08] MEDS: Enoxaparin Inj 40 MG/0.4 ML Syringe SQ SCH (08:57)
[2018-04-08] MEDS: Lisinopril 10 MG Tablet PO SCH (08:58)
[2018-04-08 12:03] LABS: Thyroid Stimulating Hormone 0.23 uIU/mL (0.358-3.740)
--- NOTE | 2018-04-08 12:37 | MB ---
cc: Philip Mclaughlin MD DATE: 04/08/2018 HISTORY OF PRESENT ILLNESS: A 62-year-old right-handed woman with hypertension, insulin diabetes, hypercholesterolemia, depression, anxiety, asthma, hypothyroidism. She does not take an aspirin a day or any blood thinners. She says 2 days ago, she had a sudden onset of double vision. If she covers either eye, it seems to go away. She has had 2 months of tremors and jerks in her arms and legs. Paxil was increased about a [id number] ago. She denies any major headaches. Occasionally, she has pain in the top of her head. She came in complaining of 2 days of constant dizziness, some blurred double vision, chronic low back pain and imbalance for 2 months, hypoxic in the ER with O2 saturation 84-90%, although she denies any history of obstructive sleep apnea or snoring. REVIEW OF SYSTEMS: She denies any VT, stent, angioplasty, A-fib, Coumadin, renal, hepatic disease, lupus, ulcer, cancer, seizure, stroke. SOCIAL HISTORY: Not a smoker or drinker. Lives with her . FAMILY HISTORY: Negative for cancer, seizure, stroke. ALLERGIES: SHE IS ALLERGIC TO, 1. ADHESIVES. 2. DEXAMETHASONE. 3. AMLODIPINE. 4. ASPIRIN, HAD A REACTION A CHILD. HOME MEDICATIONS: 1. Ambien 10 mg at bedtime p.r.n. 2. Lisinopril. 3. Atorvastatin. 4. Nasal spray. 5. Hydrocodone. 6. Albuterol. 7. Paroxetine 40 mg a day. 8. Januvia. 9. Liothyronine. 10. Tizanidine. 11. Morphine 60 mg every 8 hours. 12. Ativan 1 mg b.i.d. 13. Primidone 50 mg at bedtime. 14. Lyrica 100 mg t.i.d. PAST MEDICAL HISTORY: As above. Also, anemia, gastritis, PTSD. PHYSICAL EXAMINATION: VITAL SIGNS: Afebrile, 74, 18, 94/74-125/53, sinus rhythm. There were no carotid or vertebral bruits. HEART: Regular rate and rhythm. I did not detect a murmur. GENERAL: Significantly obese. NEUROLOGIC: Pupils are equal. Visual madrigal are full. Extraocular movements are intact without nystagmus. She has double vision on primary and lateral gaze, but covers one eye, it goes away without her glasses. With her glasses, primary gaze, no double vision, but saw 1-1/2 pens with vision to the lateral end. She got some slight constant resting tremor to both of her legs. She has asterixis of bilateral upper extremities, a little bit more on the left than the right. She has normal strength in upper and lower extremities bilaterally. DTRs 2+ in the left knee, 1+ to trace on the right. Toes are downgoing bilaterally. There is no clonus. Tone was normal throughout. Pinprick is intact throughout. She is not ataxic. She seems a bit stunned and slightly lethargic mentally, slow to answer, but not hard of hearing. She does know the month and the year and one off on the day of the week. She is not aphasic. LABORATORY DATA: CBC is normal. UA is negative. Basic metabolic profile: Sodium was 127, now up to 130, creatinine 1.6, down to 1.4, sugar 150. LFTs normal. Troponin negative. CRP 1.14, normal less than 0.3. Albumin and total protein normal. She had an ABG 7.24, 63,79, initially 7.25, 60, 64. She had a CTA of her chest essentially negative for PE. She had a CT scan that was read as negative. Review of those films does appear to be normal. IMPRESSION: 1. Metabolic encephalopathy from some hypercapnia and acidosis along with some hyponatremia, likely exacerbated by her polysubstance use. At this point, I am going to hold the Primidone, the Lyrica, the Paxil, the morphine. I would recommend transfer to the ICU with severe acidosis. She may need some BiPAP. I think probably most of her problems are metabolic here. We will check some additional blood work, check an MRI of the brain. Her EEG showed some triphasic waves consistent with metabolic preliminary report. MD SUZAN Huber/kulwant , 11:00 AM , 11:09 AM
[2018-04-08 14:28] LABS: Folate 5.2 ng/mL (3.1-17.5); Free T4 (Free Thyroxine) 0.46 ng/dL (0.76-1.46)
--- NOTE | 2018-04-08 14:42 | ECG ---
Date Performed: 04/07/2018 Time Performed: 23:07:33 PTAGE: 62 years EKG: Sinus rhythm NORMAL ECG PREVIOUS TRACING : 10/31/2015 09.46 DOCTOR: Adama Pérez Interpretating Date/Time 04/08/2018 14:37:06
--- NOTE | 2018-04-08 17:12 | MG ---
cc: Philip Mclaughlin MD EEG NUMBER: [id number] INDICATIONS: Metabolic encephalopathy. DESCRIPTION: The recording does show bilateral bifrontal triphasic waves on a background of a 5-6 Hz, 60 microvolt symmetric rhythm. Hyperventilation not performed. Photic stimulation was performed without significant posterior driving. No hemisphere asymmetries are noted. No epileptiform or seizure activity seen. IMPRESSION: Triphasic waves bilaterally consistent with a significant metabolic encephalopathy. No focal abnormalities were noted. Philip Mclaughlin MD DJM/kb , 03:37 PM , 03:40 PM
--- NOTE | 2018-04-08 17:51 | ECHRPT ---
Indication: CVA/TIA CONCLUSIONS The left ventricular systolic function is normal with an estimated ejection fraction in the range of 60-65%. Doppler parameters are consistent with impaired left ventricular relaxtion (grade 1 diastolic dysfun ction). [id number] mitral valve regurgitation. There is trace tricuspid valve regurgitation. BP: / HR: Rhythm: Sinus MEASUREMENTS (Male / Female) Normal Values Technical Quality:Fair 2D ECHO LV Diastolic Diameter PLAX 5.1 cm 4.2 - 5.9 / 3.9 - 5.3 cm LV Systolic Diameter PLAX 3.5 cm IVS Diastolic Thickness 1.0 cm 0.6 - 1.0 / 0.6 - 0.9 cm LVPW Diastolic Thickness 1.0 cm 0.6 - 1.0 / 0.6 - 0.9 cm LV Relative Wall Thickness 0.4 RV Internal Dim ED PLAX 2.0 cm LVOT Diameter 1.9 cm Aortic Root Diameter 2.8 cm LA Systolic Diameter LX 2.9 cm 3.0 - 4.0 / 2.7 - 3.8 cm M-MODE AV Cusp Separation MM 2.1 cm DOPPLER AV Peak Velocity 148.0 cm/s AV Peak Gradient 8.8 mmHg AV Mean Gradient 6.0 mmHg AV Velocity Time Integral 28.3 cm LVOT Peak Velocity 102.0 cm/s LVOT Peak Gradient 4.2 mmHg LVOT Velocity Time Integral 19.2 cm AV Area Cont Eq vti 1.9 cm AV Area Cont Eq pk 2.0 cm Mitral E Point Velocity 112.0 cm/s Mitral A Point Velocity 147.0 cm/s Mitral E to A Ratio 0.8 LV E' Lateral Velocity 11.3 cm/s Mitral E to LV E' Lateral Ratio 9.9 LV E' Septal Velocity 8.3 cm/s Mitral E to LV E' Septal Ratio 13.5 TR Peak Velocity 312.0 cm/s TR Peak Gradient 38.9 mmHg Right Atrial Pressure 10.0 mmHg Pulmonary Artery Systolic Pressu 48.9 mmHg Right Ventricular Systolic Press 48.9 mmHg PV Peak Velocity 63.9 cm/s PV Peak Gradient 1.6 mmHg FINDINGS LEFT VENTRICLE Normal left ventricular size. Wall thickness is normal. The left ventricular systolic function is normal with an estimated ejection fraction in the range of 60-65%. Doppler parameters are consistent with impaired left ventricular relaxtion (grade 1 diastolic dysfun ction). RIGHT VENTRICLE Normal right ventricular size and systolic function. Probable pacemaker noted in right ventricle LEFT ATRIUM The left atrial size is normal. RIGHT ATRIUM The right atrial size is normal. ATRIAL SEPTUM No atrial level shunt is demonstrated by color flow Doppler interrogation. AORTA The aortic root and proximal ascending aorta are not well visualized. MITRAL VALVE Structurally normal mitral valve. No mitral valve stenosis. [id number] mitral valve regurgitation. AORTIC VALVE Trileaflet aortic valve. No aortic valve stenosis or regurgitation. TRICUSPID VALVE Grossly normal tricuspid valve. There is trace tricuspid valve regurgitation. The estimated pulmonary arterial pressure is 48.9 mmHg. PULMONARY VALVE No pulmonary valve regurgitation or stenosis. VESSELS The inferior vena cava is normal in size. PERICARDIUM A prominent epicardial fat pad is present. Theo Arambula DO (Electronically Signed) Final Date:08 April 2018 17:50
[2018-04-08 18:05] LABS: ABG Base Excess 2.6 mmol/L (-2-2); ABG PCO2 64 mmHg (38-42); ABG PO2 75 mmHg (61-120)
[2018-04-08] MEDS ORDERED: Primidone 50 MG Tablet PO SCH (21:00)
--- NOTE | 2018-04-08 21:49 | P.PN ---
Subjective Interval history: Patient admitted to hospital with tia like symptoms with blurred vision and weakness also significant hypoxia and hypercapnia to IMC,cta and cxr unremarkable Pco2 remians in the 60 range oxygen better at 95% on 1.5 liters , undergoing neurology work up as per neurology ,patient was unable to due MRI due to weight problem and transferred to main [facility] as co2 remains elevated . Patient blood pressure has been high and will use prn treatment. Physical Exam Vital signs: Vital Signs 04/07/18 23:10 04/07/18 23:14 04/08/18 01:42 Temperature Pulse Rate 88 78 Respiratory Rate 18 18 Blood Pressure 158/63 H 148/73 H Pulse Oximetry 95 96 98 04/08/18 02:20 04/08/18 02:30 04/08/18 04:20 Temperature Pulse Rate 75 77 76 Respiratory Rate 18 16 16 Blood Pressure 115/60 118/68 Pulse Oximetry 04/08/18 06:32 04/08/18 08:00 04/08/18 12:00 Temperature 98.4 F 98.7 F Pulse Rate 71 74 84 Respiratory Rate 14 18 18 Blood Pressure 125/53 L 98/74 L 159/65 H Pulse Oximetry 96 96 95 04/08/18 15:49 04/08/18 15:51 04/08/18 15:55 Temperature 98.8 F Pulse Rate 80 Respiratory Rate 12 Blood Pressure 167/67 H Pulse Oximetry 94 L 94 L 93 L 04/08/18 16:00 04/08/18 17:00 04/08/18 20:00 Temperature 98.3 F 99.3 F Pulse Rate 84 78 81 Respiratory Rate 8 L 7 L 14 Blood Pressure 155/60 H 166/72 H 152/81 H Pulse Oximetry 95 94 L 96 Intake & Output 04/08/18 04/08/18 04/09/18 06:59 18:59 06:59 Intake Total 2220 / 2220 240 / 240 Output Total 650 / 650 300 / 300 Balance 1570 / 1570 -60 / -60 Weight 148.6 kg 123 kg Intake: IV 1000 / 1000 NS Inj 1,000 ML @ 100 mls/hr IV 1000 / 1000 .CONT .Q10H ROBSON Rx#:[id number] Oral 1220 / 1220 240 / 240 Output: Urine 650 / 650 300 / 300 Other: # Voids 1 Date of Last Bowel Movement 04/07/18 04/08/18 # Bowel Movements 0 2 Weight On Admission 148.6 kg Narrative: GENERAL: obese SKIN: Warm and dry. HEAD: Normocephalic. EYES: No scleral icterus. No injection or drainage. NECK: Supple, trachea midline. No JVD or lymphadenopathy. CARDIOVASCULAR: Regular rate and rhythm without murmurs, gallops, or rubs. RESPIRATORY: Breath sounds decrease bilaterally. No accessory muscle use. GASTROINTESTINAL: Abdomen soft, non-tender, nondistended. MUSCULOSKELETAL: No cyanosis, or edema. BACK: Nontender without obvious deformity. No CVA tenderness. Does have back pain with movement Results - Labs CBC & Chem 7: 04/07/18 22:50 04/08/18 05:00 Laboratory Results - last 24 hr 04/07/18 04/07/18 04/07/18 22:50 22:50 22:50 CBC w Diff Auto diff final WBC 6.1 RBC 4.32 Hgb 11.1 L Hct 34.8 L MCV 80.5 MCH 25.8 L MCHC 32.0 RDW 15.4 Plt Count 281 MPV 8.4 Neut % (Auto) 66.1 Lymph % (Auto) 25.7 [place] % (Auto) 6.2 Eos % (Auto) 1.0 Baso % (Auto) 1.0 Neut # (Auto) 3.9 Lymph # (Auto) 1.6 [place] # (Auto) 0.4 Eos # (Auto) 0.1 Baso # (Auto) 0.1 WBC Differential . Differential Comment . ESR Puncture Site Patient Temperature O2 Saturation ABG pH ABG pCO2 ABG pO2 ABG HCO3 ABG O2 Content ABG Base Excess ABG Methemoglobin Brayan Test Hemoglobin Carboxyhemoglobin O2 Delivery Device Liter Flow Inspired O2 Critical Value Sodium 127 L Potassium 4.6 Chloride 94 L Carbon Dioxide 27.4 Anion Gap 6 BUN 37 H Creatinine 1.60 H Estimated GFR 33 L POC Glucose Random Glucose 150 H Calcium 8.4 L Total Bilirubin 0.3 AST 14 L ALT 18 Alkaline Phosphatase 114 Ammonia Troponin I Less than 0.02 L C-Reactive Protein B-Natriuretic Peptide 115 H Total Protein 7.8 Albumin 3.5 Vitamin B12 Folate TSH Free T4 Urine Color Urine Clarity Urine pH Ur Specific Harshaw Urine Protein Urine Glucose (UA) Urine Ketones Urine Occult Blood Urine Nitrate Urine Bilirubin Urine Urobilinogen Ur Leukocyte Esterase Urine RBC Urine WBC Ur Squamous Epith Cells Ur Renal Epithelial Cell Micro UA Comment Urine Culture Comments 04/07/18 04/07/18 04/08/18 22:50 22:54 02:15 CBC w Diff WBC RBC Hgb Hct MCV MCH MCHC RDW Plt Count MPV Neut % (Auto) Lymph % (Auto) [place] % (Auto) Eos % (Auto) Baso % (Auto) Neut # (Auto) Lymph # (Auto) [place] # (Auto) Eos # (Auto) Baso # (Auto) WBC Differential Differential Comment ESR Puncture Site Right radial Right brachial Patient Temperature 98.6 98.6 O2 Saturation 88 L* 98 ABG pH 7.25 L* 7.23 L* ABG pCO2 60 H* 64 H* ABG pO2 64 110 ABG HCO3 25 26 ABG O2 Content 13.1 14.6 ABG Base Excess -1.0 -0.9 ABG Methemoglobin 1.2 0.5 Brayan Test Y Y Hemoglobin 10.5 L 10.5 L Carboxyhemoglobin 1.6 1.4 O2 Delivery Device Nasal cannula Liter Flow 3.00 Inspired O2 21 Critical Value Yes Yes Sodium Potassium Chloride Carbon Dioxide Anion Gap BUN Creatinine Estimated GFR POC Glucose Random Glucose Calcium Total Bilirubin AST ALT Alkaline Phosphatase Ammonia Troponin I C-Reactive Protein B-Natriuretic Peptide Total Protein Albumin Vitamin B12 Folate TSH Free T4 Urine Color Yellow Urine Clarity Clear Urine pH 5.0 Ur Specific Harshaw 1.010 Urine Protein Negative Urine Glucose (UA) Negative Urine Ketones Negative Urine Occult Blood Negative Urine Nitrate Negative Urine Bilirubin Negative Urine Urobilinogen 0.2 Ur Leukocyte Esterase Negative Urine RBC 0-3 Urine WBC 0-5 Ur Squamous Epith Cells 0-5 Ur Renal Epithelial Cell 1-5 H Micro UA Comment Culture not ind Urine Culture Comments Culture not ind 04/08/18 04/08/18 04/08/18 05:00 05:00 05:28 CBC w Diff WBC RBC Hgb Hct MCV MCH MCHC RDW Plt Count MPV Neut % (Auto) Lymph % (Auto) [place] % (Auto) Eos % (Auto) Baso % (Auto) Neut # (Auto) Lymph # (Auto) [place] # (Auto) Eos # (Auto) Baso # (Auto) WBC Differential Differential Comment ESR Puncture Site Right brachial Patient Temperature 98.6 O2 Saturation 93 ABG pH 7.24 L* ABG pCO2 63 H* ABG pO2 79 ABG HCO3 26 ABG O2 Content 13.5 ABG Base Excess -0.6 ABG Methemoglobin 1.3 Brayan Test Y Hemoglobin 10.2 L Carboxyhemoglobin 1.5 O2 Delivery Device Nasal cannula Liter Flow 1.00 Inspired O2 Critical Value Yes Sodium 130 L Potassium 4.5 Chloride 98 Carbon Dioxide 26.8 Anion Gap 5 BUN 32 H Creatinine 1.40 H Estimated GFR 38 L POC Glucose Random Glucose 111 H Calcium 8.0 L Total Bilirubin AST ALT Alkaline Phosphatase Ammonia Troponin I C-Reactive Protein 1.14 H B-Natriuretic Peptide Total Protein Albumin Vitamin B12 579 Folate 5.2 TSH 0.230 L Free T4 0.46 L Urine Color Urine Clarity Urine pH Ur Specific H[place] Urine Protein Urine Glucose (UA) Urine Ketones Urine Occult Blood Urine Nitrate Urine Bilirubin Urine Urobilinogen Ur Leukocyte Esterase Urine RBC Urine WBC Ur Squamous Epith Cells Ur Renal Epithelial Cell Micro UA Comment Urine Culture Comments 04/08/18 04/08/18 04/08/18 07:31 11:29 13:05 CBC w Diff WBC RBC Hgb Hct MCV MCH MCHC RDW Plt Count MPV Neut % (Auto) Lymph % (Auto) [place] % (Auto) Eos % (Auto) Baso % (Auto) Neut # (Auto) Lymph # (Auto) [place] # (Auto) Eos # (Auto) Baso # (Auto) WBC Differential Differential Comment ESR 38 H Puncture Site Patient Temperature O2 Saturation ABG pH ABG pCO2 ABG pO2 ABG HCO3 ABG O2 Content ABG Base Excess ABG Methemoglobin Brayan Test Hemoglobin Carboxyhemoglobin O2 Delivery Device Liter Flow Inspired O2 Critical Value Sodium Potassium Chloride Carbon Dioxide Anion Gap BUN Creatinine Estimated GFR POC Glucose 127 H 109 Random Glucose Calcium Total Bilirubin AST ALT Alkaline Phosphatase Ammonia Troponin I C-Reactive Protein B-Natriuretic Peptide Total Protein Albumin Vitamin B12 Folate TSH Free T4 Urine Color Urine Clarity Urine pH Ur Specific [place] Urine Protein Urine Glucose (UA) Urine Ketones Urine Occult Blood Urine Nitrate Urine Bilirubin Urine Urobilinogen Ur Leukocyte Esterase Urine RBC Urine WBC Ur Squamous Epith Cells Ur Renal Epithelial Cell Micro UA Comment Urine Culture Comments 04/08/18 04/08/18 04/08/18 13:05 16:21 18:00 CBC w Diff WBC RBC Hgb Hct MCV MCH MCHC RDW Plt Count MPV Neut % (Auto) Lymph % (Auto) [place] % (Auto) Eos % (Auto) Baso % (Auto) Neut # (Auto) Lymph # (Auto) [place] # (Auto) Eos # (Auto) Baso # (Auto) WBC Differential Differential Comment ESR Puncture Site Right radial Patient Temperature 98.6 O2 Saturation 93 ABG pH 7.28 L* ABG pCO2 64 H* ABG pO2 75 ABG HCO3 29 H ABG O2 Content 13.4 ABG Base Excess 2.6 H ABG Methemoglobin 0.6 Brayan Test Present Hemoglobin 10.2 L Carboxyhemoglobin 1.5 O2 Delivery Device Nasal cannula Liter Flow 1.00 Inspired O2 21 Critical Value Yes Sodium Potassium Chloride Carbon Dioxide Anion Gap BUN Creatinine Estimated GFR POC Glucose 160 H Random Glucose Calcium Total Bilirubin AST ALT Alkaline Phosphatase Ammonia 27 Troponin I C-Reactive Protein B-Natriuretic Peptide Total Protein Albumin Vitamin B12 Folate TSH Free T4 Urine Color Urine Clarity Urine pH Ur Specific [place] Urine Protein Urine Glucose (UA) Urine Ketones Urine Occult Blood Urine Nitrate Urine Bilirubin Urine Urobilinogen Ur Leukocyte Esterase Urine RBC Urine WBC Ur Squamous Epith Cells Ur Renal Epithelial Cell Micro UA Comment Urine Culture Comments - Imaging Impressions Chest X-Ray 04/07/18 22:26 CONCLUSION: No evidence of acute cardiopulmonary process. Head CT 04/07/18 22:26 CONCLUSION: 1. No acute intracranial abnormality is identified. 2. Please note that the entire superior aspect of the head was not imaged. . Chest CTA 04/08/18 00:18 CONCLUSION: 1. No PE or acute abnormality is identified to explain the patient's shortness of breath. 2. Intra and extrahepatic bile duct dilatation in this patient post cholecystectomy. The biliary system was dilated to some degree on the prior study from July 2014 suggesting that this is a chronic finding. 3. Coronary artery calcification. Assessment and Plan - Assessment (1) Transient neurological symptoms Code(s): R29.818 - Other symptoms and signs involving the nervous system Status: Acute Plan: Likely multifactorial associated with her pain medications as well as muscle relaxants and tranquilizers. Still does not completely explain the relative new onset diplopia and occasional ballistic type movement of her left lower extremity. We will have neurology see the patient. Consider MRI and further workup per neurology advisement. She reportedly has seen Dr. Holcomb as an outpatient for the tremor which is currently being worked up by him. It is noted the patient appears somewhat anxious at times and there may be some supratentorial component as well. I will try to decrease the doses of her various pain medications/muscle relaxant/tranquilizer. (2) Hypoxia Code(s): R09.02 - Hypoxemia Status: Acute Plan: Rapidly improved with supplemental oxygen. She appears to be somewhat hypercapnic and mildly acidotic. Repeat ABG on lower supplemental oxygen is pending. 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 She would benefit from outpatient sleep study as well. If patient becomes hypoxic will add bipap (3) Polypharmacy Code(s): Z79.899 - Other fpc (current) drug therapy Status: Chronic Plan: will attempt to decrease some of her meds, but she is chronically painful. She will follow-up with her outpatient pain management physician for fine tuning. (4) Renal insufficiency, mild Code(s): N28.9 - Disorder of kidney and ureter, unspecified Status: Acute Plan: Somewhat improved with gentle IV fluid. Continue to follow.
--- NOTE | 2018-04-08 22:35 | MB ---
cc: Olga Churchill MD DATE: 04/08/2018 REASON FOR CONSULTATION: Respiratory failure and possible sleep apnea. HISTORY OF PRESENT ILLNESS: This is a 62-year-old lady who has had a history of weakness, dizziness and inability to ambulate with chronic sleepiness who was brought to the emergency room for evaluation. The patient apparently has been extremely overweight and is not able to ambulate much due to chronic low back pain and thus has become sedentary. According to the , she also has been quite sleepy and sometimes unable to converse well. She was having some tremors as well and thus was brought into the ER, at which time a blood gas study was done which showed hypoxemia with hypercapnia. She was then placed on O2 via nasal cannula and a BiPAP setup was started, but apparently, the patient does not tolerate it well. She denies chest pain. She has no cough, but has some wheezing and apparently has a prior history of possible asthma. PAST MEDICAL HISTORY: Includes history of hypertension, PTSD, history of tremors, hyperlipidemia, hypothyroidism, anxiety, anemia of chronic disease, diabetes. PAST SURGICAL HISTORY: Includes hysterectomy, lumbar laminectomy and cholecystectomy as well as breast biopsy. HABITS: The patient did smoke for about 15 years, about a pack a day and quit in her 30s. No significant alcohol use. FAMILY HISTORY: Noncontributory. REVIEW OF SYSTEMS: The patient is unable to answer too many questions and is a poor historian. She has some leg swelling. She has back pain, joint pains, dizziness and history of major depression. PHYSICAL EXAMINATION: GENERAL: This is a very obese, middle-aged, white female who is alert, pale, in no acute distress. VITAL SIGNS: Blood pressure 140/80, pulse 84, respirations 20, temperature 99.2. HEENT: Head is normocephalic. Pupils reactive. Tongue is moist. Throat is mildly injected. Nasal mucosa is clear. NECK: Supple. No bruits or thyroid enlargement. CHEST: Equal movements with distant breath sounds and occasional wheezes throughout both lung madrigal. HEART: Sounds are regular. S1 and S2. No murmur. No S3. ABDOMEN: Soft, protuberant without masses. No organomegaly or tenderness. Bowel sounds active. EXTREMITIES: No lesions. There is mild edema. No calf tenderness. NEUROLOGIC: She does move all her extremities sluggishly. There are no focal deficits. SKIN: No lesions noted. IMPRESSION: 1. Hypercapnic respiratory failure. 2. Extreme obesity and obesity hypoventilation syndrome. 3. Possible reactive airways. 4. Depression and anxiety. 5. Anemia of chronic disease. 6. Diabetes mellitus. PLAN: The patient will be placed on DuoNeb solution with nebulizer q.i.d. p.r.n. Pulmonary function study to be done at the bedside. Weight loss was discussed. A polysomnographic test will be scheduled as an outpatient. Blood gas studies will be repeated. Oxygen at 2 liters nasal cannula will be placed during the daytime and BiPAP at bedtime and p.r.n. A neurologic evaluation is also being conducted. I will follow the case with you, Dr. Navarrete. Thank you for this consultation. V. Markel Churchill MD VJD/david , 08:10 PM , 08:23 PM
[2018-04-09 00:24] LABS: Barbiturate Screen,Urine Neg (Neg); Cannabinoid Screen,Urine Neg (Neg)
[2018-04-09 00:25] LABS: Amphetamine Screen,Urine Neg (Neg); Cocaine Screen,Urine Neg (Neg)
[2018-04-09 00:29] LABS: Opiate Screen,Urine Pos (Neg)
[2018-04-09] MEDS ORDERED: Chlorhexidine Gluconate 2% 1 Pack (2 Cloths) TOPICAL PRN (04:00)
[2018-04-09] MEDS: Chlorhexidine Gluconate 2% 1 Pack (2 Cloths) TOPICAL SCH (04:38)
[2018-04-09] MEDS: Enoxaparin Inj 40 MG/0.4 ML Syringe SQ SCH (08:18)
[2018-04-09] MEDS: Lisinopril 10 MG Tablet PO SCH (08:18)
[2018-04-09] MEDS: Sod Chloride 0.9% Inj 1,000 ML IV.CONT SCH (08:20)
--- NOTE | 2018-04-09 10:19 | P.PNIM ---
Subjective Interval history: double vision better pt describes high doses of medications for pain and depression and polypharmacy no bipap overnight. Physical Exam Vital signs: Vital Signs 04/08/18 12:00 04/08/18 15:49 04/08/18 15:51 Temperature 98.7 F 98.8 F Pulse Rate 84 80 Respiratory Rate 18 12 Blood Pressure 159/65 H 167/67 H Pulse Oximetry 95 94 L 94 L 04/08/18 15:55 04/08/18 16:00 04/08/18 17:00 Temperature 98.3 F Pulse Rate 84 78 Respiratory Rate 8 L 7 L Blood Pressure 155/60 H 166/72 H Pulse Oximetry 93 L 95 94 L 04/08/18 20:00 04/08/18 22:00 04/08/18 22:22 Temperature 99.3 F 99.0 F Pulse Rate 81 75 Respiratory Rate 14 20 Blood Pressure 152/81 H 161/66 H Pulse Oximetry 94 L 95 98 04/08/18 23:20 04/09/18 00:00 04/09/18 00:12 Temperature 99.1 F Pulse Rate 71 Respiratory Rate 20 20 20 Blood Pressure 174/76 H Pulse Oximetry 94 L 04/09/18 02:00 04/09/18 02:34 04/09/18 04:00 Temperature 99.2 F Pulse Rate 83 74 Respiratory Rate 20 Blood Pressure 158/70 H Pulse Oximetry 97 97 04/09/18 06:00 04/09/18 06:53 Temperature Pulse Rate 68 Respiratory Rate 20 Blood Pressure Pulse Oximetry Intake & Output 04/08/18 04/09/18 04/09/18 18:59 06:59 18:59 Intake Total 2220 / 2220 480 / 480 1000 / 1000 Output Total 650 / 650 1400 / 1400 Balance 1570 / 1570 -920 / -920 1000 / 1000 Weight 123 kg 123.5 kg Intake: IV 1000 / 1000 1000 / 1000 NS Inj 1,000 ML @ 100 mls/hr IV 1000 / 1000 1000 / 1000 .CONT .Q10H ROBSON Rx#:[id number] Oral 1220 / 1220 480 / 480 Output: Urine 650 / 650 1400 / 1400 Other: # Voids 1 2 Date of Last Bowel Movement 04/07/18 04/09/18 # Bowel Movements 0 1 Weight On Admission 148.6 kg heart reg lung cta abd /snt ext no edema Results - Labs CBC & Chem 7: 04/07/18 22:50 04/08/18 05:00 Laboratory Results - last 24 hr 04/07/18 04/08/18 04/08/18 22:50 05:00 11:29 ESR Puncture Site Patient Temperature O2 Saturation ABG pH ABG pCO2 ABG pO2 ABG HCO3 ABG O2 Content ABG Base Excess ABG Methemoglobin Brayan Test Hemoglobin Carboxyhemoglobin O2 Delivery Device Liter Flow Inspired O2 Critical Value POC Glucose 109 Ammonia Vitamin B12 579 Folate 5.2 TSH 0.230 L Free T4 0.46 L Nasal Screen MRSA (PCR) Urine Opiates Screen Pos H Ur Barbiturates Screen Neg Ur Amphetamines Screen Neg U Benzodiazepines Scrn Neg Urine Cocaine Screen Neg U Cannabinoids Screen Neg 04/08/18 04/08/18 04/08/18 13:05 13:05 16:21 ESR 38 H Puncture Site Patient Temperature O2 Saturation ABG pH ABG pCO2 ABG pO2 ABG HCO3 ABG O2 Content ABG Base Excess ABG Methemoglobin Brayan Test Hemoglobin Carboxyhemoglobin O2 Delivery Device Liter Flow Inspired O2 Critical Value POC Glucose 160 H Ammonia 27 Vitamin B12 Folate TSH Free T4 Nasal Screen MRSA (PCR) Urine Opiates Screen Ur Barbiturates Screen Ur Amphetamines Screen U Benzodiazepines Scrn Urine Cocaine Screen U Cannabinoids Screen 04/08/18 04/08/18 18:00 21:35 ESR Puncture Site Right radial Patient Temperature 98.6 O2 Saturation 93 ABG pH 7.28 L* ABG pCO2 64 H* ABG pO2 75 ABG HCO3 29 H ABG O2 Content 13.4 ABG Base Excess 2.6 H ABG Methemoglobin 0.6 Brayan Test Present Hemoglobin 10.2 L Carboxyhemoglobin 1.5 O2 Delivery Device Nasal cannula Liter Flow 1.00 Inspired O2 21 Critical Value Yes POC Glucose Ammonia Vitamin B12 Folate TSH Free T4 Nasal Screen MRSA (PCR) Not detected Urine Opiates Screen Ur Barbiturates Screen Ur Amphetamines Screen U Benzodiazepines Scrn Urine Cocaine Screen U Cannabinoids Screen Assessment and Plan - Assessment (1) Transient neurological symptoms Code(s): R29.818 - Other symptoms and signs involving the nervous system Status: Acute Plan: 1. diplopia. Pt presented with concern for polypharmacy(long acting morphine,hydrocodone, tizanidine,primidone,ativan, antidepressants) She says recently paxil was added and before that several drug tried for her depression that sedated her. She says cytomel also added for "depression" Found to have respiratory acidosis and hypercapnea. likely has underlying fredi/ hypoventilation. neurology evaluating . medication list trimmed down. today pt asking me not to cut her off "cold turkey" will transfer out of ICU. f/u mri pending. PT and oob review list for more possible adjustment. pt on ivf. repeat bmp to check na and cr. 2. htn meds as tolerated 3. dm 2 home meds held on admission ssi. observe. 4. depression. (2) Hypoxia Code(s): R09.02 - Hypoxemia Status: Acute (3) Polypharmacy Code(s): Z79.899 - Other retirement (current) drug therapy Status: Chronic
[2018-04-09] MEDS ORDERED: Gadobutrol PF 10 MMOL/10 ML Vial (for RAD) IV.SIG ONE (10:38)
--- NOTE | 2018-04-09 10:52 | MR ---
EXAM DATE: 04/09/2018 10:44 AM EDT AGE/SEX: 62 years / Female INDICATIONS: Dizziness. Weakness. CLINICAL DATA: This is the patient's initial encounter. Patient reports that signs and symptoms have been present for 2 days and indicates a pain score of 2/10. MEDICAL/SURGICAL HISTORY: Diabetes mellitus type II. Cholecystectomy. Hysterectomy. Spinal cor d stimulator removed. COMPARISON: [facility], CT HEAD W/O CONTRAST, 04/07/2018. . TECHNIQUE: Multiplanar, multisequence examination of the brain was performed without and with 10cc ml Gadavist (gadobutrol) contrast as a single exam dose. FINDINGS: Cerebrum: The ventricles are normal for age. No evidence of midline shift, mass lesion, hemorrhage or acute infarction. No extraaxial fluid collections are seen. The pituitary gland and suprasellar cistern are normal in configuration. White Matter: No significant signal abnormalities are seen in the white matter. Posterior Fossa: The cerebellum and brainstem are intact. The 4th ventricle is midline. The cerebel lopontine angle is unremarkable. The cerebellar tonsils are normal in position. Diffusion Imaging: No focal areas of restricted diffusion are seen. No evidence of acute infarction . Extracranial: The visualized portions of the orbits and paranasal sinuses are unremarkable. Post Contrast: No abnormal areas of parenchymal or dural enhancement. No evidence of blood-brain ba rrier breakdown. CONCLUSION: 1. No acute intracranial abnormality. Electronically signed by: Tobias Hickey MD 04/09/2018 10:51 AM EDT
--- NOTE | 2018-04-09 11:14 | P.PNNEU ---
Subjective Subjective Comments: inc back pain feels like withdrawing a bit Active Medications: Active Medications Hydrocodone Bitart/Acetaminophen ([place] 10/325) 1 tab PO Q4H PRN PRN Reason: breakthrough pain level 3-10 Albuterol (Duoneb Neb (Prn)) 1 ampul NEB Q4HR NEB PRN PRN Reason: wheeze, sob Chlorhexidine Gluconate (Chlorhexidine 2% Cloth) 3 pack TOPICAL DAILY@0400 [facility] Stop: 04/14/18 03:59 Last Admin: 04/09/18 04:38 Dose: 3 pack Chlorhexidine Gluconate (Chlorhexidine 2% Cloth) 3 pack TOPICAL DAILY@0400 PRN PRN Reason: Extra cloth needed Stop: 04/14/18 03:59 Enalaprilat (Vasotec Inj) 1.25 mg IV.PUSH Q6H PRN PRN Reason: SBP> OR = 180, DBP> OR = 100 Enoxaparin Sodium (Lovenox Inj) 40 mg SQ DAILY [facility] Last Admin: 04/09/18 08:18 Dose: 40 mg Sodium Chloride (Ns Inj) 1,000 mls @ 100 mls/hr IV.CONT .Q10H [facility] Last Admin: 04/09/18 08:20 Dose: 100 mls/hr Lisinopril (Prinivil) 30 mg PO DAILY [facility] Last Admin: 04/09/18 08:18 Dose: 30 mg Sodium Chloride (Ns Flush) 2 ml IV.FLUSH PRN PRN PRN Reason: FLUSH AFTER USING IV ACCESS Allergies/Adverse Reactions: Allergies Allergy/AdvReac Type Severity Reaction Status Date / Time adhesive Allergy Mild RASH Verified 04/08/18 02:49 dexamethasone Allergy Mild Flushing Verified 04/08/18 02:49 amlodipine Allergy Unknown SWELLING Verified 04/08/18 02:49 aspirin Allergy Unknown HAD Verified 04/08/18 02:49 CHILD, UNSURE O REACTION Physical Exam Vital signs: Vital Signs 04/08/18 12:00 04/08/18 15:49 04/08/18 15:51 Temperature 98.7 F 98.8 F Pulse Rate 84 80 Respiratory Rate 18 12 Blood Pressure 159/65 H 167/67 H Pulse Oximetry 95 94 L 94 L 04/08/18 15:55 04/08/18 16:00 04/08/18 17:00 Temperature 98.3 F Pulse Rate 84 78 Respiratory Rate 8 L 7 L Blood Pressure 155/60 H 166/72 H Pulse Oximetry 93 L 95 94 L 04/08/18 20:00 04/08/18 22:00 04/08/18 22:22 Temperature 99.3 F 99.0 F Pulse Rate 81 75 Respiratory Rate 14 20 Blood Pressure 152/81 H 161/66 H Pulse Oximetry 94 L 95 98 04/08/18 23:20 04/09/18 00:00 04/09/18 00:12 Temperature 99.1 F Pulse Rate 71 Respiratory Rate 20 20 20 Blood Pressure 174/76 H Pulse Oximetry 94 L 04/09/18 02:00 04/09/18 02:34 04/09/18 04:00 Temperature 99.2 F Pulse Rate 83 74 Respiratory Rate 20 Blood Pressure 158/70 H Pulse Oximetry 97 97 04/09/18 06:00 04/09/18 06:53 04/09/18 08:00 Temperature Pulse Rate 68 Respiratory Rate 20 Blood Pressure Pulse Oximetry 95 Intake & Output 04/08/18 04/09/18 04/09/18 18:59 06:59 18:59 Intake Total 2220 / 2220 480 / 480 1000 / 1000 Output Total 650 / 650 1400 / 1400 Balance 1570 / 1570 -920 / -920 1000 / 1000 Weight 123 kg 123.5 kg Intake: IV 1000 / 1000 1000 / 1000 NS Inj 1,000 ML @ 100 mls/hr IV 1000 / 1000 1000 / 1000 .CONT .Q10H [facility] Rx#:[id number] Oral 1220 / 1220 480 / 480 Output: Urine 650 / 650 1400 / 1400 Other: # Voids 1 2 Date of Last Bowel Movement 04/07/18 04/09/18 04/09/18 # Bowel Movements 0 1 Weight On Admission 148.6 kg Narrative: more alert no asterixis moving well co back pain Objective Laboratory Results - last 24 hr 04/07/18 04/08/18 04/08/18 22:50 05:00 11:29 ESR Puncture Site Patient Temperature O2 Saturation ABG pH ABG pCO2 ABG pO2 ABG HCO3 ABG O2 Content ABG Base Excess ABG Methemoglobin Brayan Test Hemoglobin Carboxyhemoglobin O2 Delivery Device Liter Flow Inspired O2 Critical Value POC Glucose 109 Ammonia Vitamin B12 579 Folate 5.2 TSH 0.230 L Free T4 0.46 L Nasal Screen MRSA (PCR) Urine Opiates Screen Pos H Ur Barbiturates Screen Neg Ur Amphetamines Screen Neg U Benzodiazepines Scrn Neg Urine Cocaine Screen Neg U Cannabinoids Screen Neg 04/08/18 04/08/18 04/08/18 13:05 13:05 16:21 ESR 38 H Puncture Site Patient Temperature O2 Saturation ABG pH ABG pCO2 ABG pO2 ABG HCO3 ABG O2 Content ABG Base Excess ABG Methemoglobin Brayan Test Hemoglobin Carboxyhemoglobin O2 Delivery Device Liter Flow Inspired O2 Critical Value POC Glucose 160 H Ammonia 27 Vitamin B12 Folate TSH Free T4 Nasal Screen MRSA (PCR) Urine Opiates Screen Ur Barbiturates Screen Ur Amphetamines Screen U Benzodiazepines Scrn Urine Cocaine Screen U Cannabinoids Screen 04/08/18 04/08/18 18:00 21:35 ESR Puncture Site Right radial Patient Temperature 98.6 O2 Saturation 93 ABG pH 7.28 L* ABG pCO2 64 H* ABG pO2 75 ABG HCO3 29 H ABG O2 Content 13.4 ABG Base Excess 2.6 H ABG Methemoglobin 0.6 Brayan Test Present Hemoglobin 10.2 L Carboxyhemoglobin 1.5 O2 Delivery Device Nasal cannula Liter Flow 1.00 Inspired O2 21 Critical Value Yes POC Glucose Ammonia Vitamin B12 Folate TSH Free T4 Nasal Screen MRSA (PCR) Not detected Urine Opiates Screen Ur Barbiturates Screen Ur Amphetamines Screen U Benzodiazepines Scrn Urine Cocaine Screen U Cannabinoids Screen Review/Management - Review/Management Plan: imp feels like withdrawing will give back a little mso4 oob mri neg eeg triphasics sw met enceph i dw her and wt loss needed less meds recheck abg
--- NOTE | 2018-04-09 11:18 | MR ---
EXAM DATE: 04/09/2018 11:03 AM EDT AGE/SEX: 62 years / Female INDICATIONS: Dizziness. Weakness. CLINICAL DATA: This is the patient's initial encounter. Patient reports that signs and symptoms have been present for 2 days and indicates a pain score of 2/10. MEDICAL/SURGICAL HISTORY: Diabetes mellitus type II. Cholecystectomy. Hysterectomy. Spinal cor d stimulator removed. COMPARISON: [facility], MR HEAD W & W/O CONTRAST, 04/09/2018. [facility], CT HEAD W/O CONTRAST, 04/07/2018. . TECHNIQUE: 3D [id number] MRA was performed. Source images, multiplanar STS MIP, and 3D volum e MIP reconstructions were reviewed. FINDINGS: There is excellent visualization of the major intracranial arteries out to the second-order branch ve ssels. There is no evidence for aneurysm, vessel truncation or stenosis, and no evidence for vascula r malformation. Probable venous angioma along the posterior fossa CONCLUSION: 1. No large vessel stenosis or aneurysm. 2. Probable venous angioma posterior fossa. Electronically signed by: Tobias Hickey MD 04/09/2018 11:16 AM EDT
--- NOTE | 2018-04-09 11:21 | MR ---
EXAM DATE: 04/09/2018 11:04 AM EDT AGE/SEX: 62 years / Female INDICATIONS: Dizziness. Weakness. CLINICAL DATA: This is the patient's initial encounter. Patient reports that signs and symptoms have been present for 2 days and indicates a pain score of 2/10. MEDICAL/SURGICAL HISTORY: Diabetes mellitus type II. Cholecystectomy. Hysterectomy. Spinal cor d stimulator removed. COMPARISON: No prior exams available for comparison. TECHNIQUE: 10cc ml Gadavist (gadobutrol) contrast infused MRA (single exam dose) of the extracrania l circulation was performed using a neurovascular coil. Postprocessing was performed, including rota ting sub-volume maximum intensity projections of each carotid artery, rotating full-volume maximum in tensity projections of both carotid arteries, sagittal and coronal sliding thin-slab reformations of each carotid artery, and left oblique sliding thin-slab reformation through the aortic arch to includ e the origin of the arch branch vessels. FINDINGS: Aortic Arch : Right Carotid : The common carotid artery is intact. The carotid bulb has a normal c onfiguration without ulceration or narrowing. The internal carotid artery lumen is smooth without st enosis. The external carotid artery is intact. Left Carotid : The common carotid artery is intact. The carotid bulb has a normal configuration wit hout ulceration or narrowing. The internal carotid artery lumen is smooth without stenosis. The ext ernal carotid artery is intact. Vertebrals : The vertebral arteries have a symmetric diameter. No stenotic lesions are seen. CONCLUSION: 1. No carotid stenosis Percent stenosis is calculated using the diameter of the stenotic region over the diameter of the nor mal distal internal carotid artery Electronically signed by: Tobias Hickey MD 04/09/2018 11:19 AM EDT
[2018-04-09 11:58] LABS: ABG Base Excess 4.3 mmol/L (-2-2); ABG PCO2 55 mmHg (38-42); ABG PO2 74 mmHG (61-120)
[2018-04-09] MEDS: Morphine Sulfate 15 MG IR Tablet PO SCH ×2 (15:18→22:03)
[2018-04-09 17:24] LABS: Calcium 8.8 mg/dL (8.5-10.1); Carbon Dioxide 30.2 meq/L (21.0-32.0); Potassium 4.5 meq/L (3.5-5.1)
[2018-04-10] MEDS: Morphine Sulfate 15 MG IR Tablet PO SCH (05:55)
[2018-04-10] MEDS: Chlorhexidine Gluconate 2% 1 Pack (2 Cloths) TOPICAL SCH (05:55)
[2018-04-10 06:57] LABS: Calcium 8.7 mg/dL (8.5-10.1); Carbon Dioxide 25.7 meq/L (21.0-32.0)
[2018-04-10 06:58] LABS: Potassium 4.6 meq/L (3.5-5.1)
[2018-04-10] MEDS: Enoxaparin Inj 40 MG/0.4 ML Syringe SQ SCH (08:00)
[2018-04-10] MEDS: Lisinopril 10 MG Tablet PO SCH (08:00)
--- NOTE | 2018-04-10 08:28 | P.PNNEU ---
Subjective Active Medications: Active Medications Hydrocodone Bitart/Acetaminophen ([place] 10/325) 1 tab PO Q4H PRN PRN Reason: breakthrough pain level 3-10 Last Admin: 04/10/18 05:59 Dose: 1 tab Albuterol (Duoneb Neb (Prn)) 1 ampul NEB Q6HR NEB PRN PRN Reason: SHORTNESS OF BREATH/WHEEZING Chlorhexidine Gluconate (Chlorhexidine 2% Cloth) 3 pack TOPICAL DAILY@0400 [facility] Stop: 04/14/18 03:59 Last Admin: 04/10/18 05:55 Dose: 3 pack Chlorhexidine Gluconate (Chlorhexidine 2% Cloth) 3 pack TOPICAL DAILY@0400 PRN PRN Reason: Extra cloth needed Stop: 04/14/18 03:59 Clonidine HCl (Catapres) 0.1 mg PO Q6H PRN PRN Reason: systolic BP over 170 Last Admin: 04/10/18 07:46 Dose: 0.1 mg Enalaprilat (Vasotec Inj) 1.25 mg IV.PUSH Q6H PRN PRN Reason: SBP> OR = 180, DBP> OR = 100 Last Admin: 04/10/18 05:12 Dose: 1.25 mg Enoxaparin Sodium (Lovenox Inj) 40 mg SQ DAILY [facility] Last Admin: 04/09/18 08:18 Dose: 40 mg Sodium Chloride (Ns Inj) 1,000 mls @ 100 mls/hr IV.CONT .Q10H [facility] Last Admin: 04/09/18 08:20 Dose: 100 mls/hr Lisinopril (Prinivil) 30 mg PO DAILY [facility] Last Admin: 04/09/18 08:18 Dose: 30 mg Morphine Sulfate (Msir) 15 mg PO Q8HR [facility] Last Admin: 04/10/18 05:55 Dose: 15 mg Ondansetron HCl (Zofran Odt) 4 mg PO Q4H PRN PRN Reason: nausea/vomiting Last Admin: 04/09/18 16:42 Dose: 4 mg Prochlorperazine Edisylate (Compazine Inj) 5 mg IV.PUSH Q6H PRN PRN Reason: nausea/vomiting Last Admin: 04/10/18 07:46 Dose: 5 mg Sodium Chloride (Ns Flush) 2 ml IV.FLUSH PRN PRN PRN Reason: FLUSH AFTER USING IV ACCESS Last Admin: 04/10/18 07:55 Dose: 2 ml Allergies/Adverse Reactions: Allergies Allergy/AdvReac Type Severity Reaction Status Date / Time adhesive Allergy Mild RASH Verified 04/08/18 02:49 dexamethasone Allergy Mild Flushing Verified 04/08/18 02:49 amlodipine Allergy Unknown SWELLING Verified 04/08/18 02:49 aspirin Allergy Unknown HAD Verified 04/08/18 02:49 CHILD, UNSURE O REACTION Physical Exam Vital signs: Vital Signs 04/09/18 09:00 04/09/18 10:00 04/09/18 10:58 Temperature Pulse Rate 89 81 Respiratory Rate 16 Blood Pressure 159/83 H 164/72 H Pulse Oximetry 96 99 04/09/18 11:00 04/09/18 12:00 04/09/18 12:14 Temperature 98.5 F Pulse Rate 81 61 62 Respiratory Rate 20 16 Blood Pressure 158/78 H 178/79 H 178/79 H Pulse Oximetry 98 91 L 95 04/09/18 13:00 04/09/18 13:11 04/09/18 14:00 Temperature Pulse Rate 84 78 65 Respiratory Rate 16 18 21 Blood Pressure 185/81 H 174/79 H Pulse Oximetry 96 100 04/09/18 15:00 04/09/18 16:00 04/09/18 16:08 Temperature 98.7 F Pulse Rate 50 L 61 74 Respiratory Rate 17 26 H 18 Blood Pressure 183/81 H 195/87 H Pulse Oximetry 100 100 100 04/09/18 17:00 04/09/18 17:31 04/09/18 18:00 Temperature Pulse Rate 80 95 H Respiratory Rate 16 14 32 H Blood Pressure Pulse Oximetry 04/09/18 18:19 04/09/18 18:21 04/09/18 18:42 Temperature Pulse Rate 61 62 58 L Respiratory Rate 11 L 12 16 Blood Pressure 239/100 H 223/98 H 207/80 H Pulse Oximetry 87 L 89 L 96 04/09/18 19:00 04/09/18 19:26 04/09/18 20:00 Temperature Pulse Rate 50 L 54 L 66 Respiratory Rate 34 H 27 H 14 Blood Pressure 206/77 H 190/108 H Pulse Oximetry 93 L 83 L 90 L 04/09/18 21:00 04/09/18 21:07 04/09/18 22:00 Temperature Pulse Rate 82 80 66 Respiratory Rate 17 18 35 H Blood Pressure 175/77 H 182/78 H Pulse Oximetry 84 L 81 L 95 04/09/18 22:28 04/09/18 23:00 04/09/18 23:04 Temperature Pulse Rate 51 L 52 L Respiratory Rate 18 18 Blood Pressure 167/71 H Pulse Oximetry 94 L 90 L 95 04/10/18 00:00 04/10/18 01:00 04/10/18 01:03 Temperature Pulse Rate 66 56 L 58 L Respiratory Rate 18 18 17 Blood Pressure 138/84 195/83 H Pulse Oximetry 80 L 93 L 89 L 04/10/18 02:00 04/10/18 03:00 04/10/18 03:06 Temperature Pulse Rate 46 L 55 L 70 Respiratory Rate 18 15 19 Blood Pressure 198/94 H 219/112 H 194/141 H Pulse Oximetry 93 L 87 L 81 L 04/10/18 03:08 04/10/18 04:00 04/10/18 04:01 Temperature Pulse Rate 72 51 L 63 Respiratory Rate 17 13 43 H Blood Pressure 207/93 H 191/79 H Pulse Oximetry 94 L 90 L 92 L 04/10/18 05:00 04/10/18 06:00 04/10/18 06:01 Temperature Pulse Rate 44 L 77 65 Respiratory Rate 22 29 H 13 Blood Pressure 205/91 H 166/68 H Pulse Oximetry 96 96 97 Intake & Output 04/09/18 04/10/18 04/10/18 18:59 06:59 18:59 Intake Total 1900 / 1900 480 / 480 Output Total 1500 / 1500 Balance 400 / 400 480 / 480 Weight 124.5 kg Intake: IV 1000 / 1000 NS Inj 1,000 ML @ 100 mls/hr IV 1000 / 1000 .CONT .Q10H [facility] Rx#:[id number] Oral 900 / 900 480 / 480 Output: Urine 1500 / 1500 Other: # Voids 5 Date of Last Bowel Movement 04/09/18 04/09/18 Narrative: awake alert smiling no tremors nad Objective Laboratory Results - last 24 hr 04/09/18 04/09/18 04/09/18 04:29 11:34 11:39 Puncture Site Left radial Patient Temperature 98.6 O2 Saturation 92 ABG pH 7.35 L ABG pCO2 55 H* ABG pO2 74 ABG HCO3 30 H ABG O2 Content 13.7 ABG Base Excess 4.3 H ABG Methemoglobin 1.2 Brayan Test Present Hemoglobin 10.5 L Carboxyhemoglobin 1.3 O2 Delivery Device Nasal cannula Liter Flow 2.00 Inspired O2 21 Critical Value Yes Sodium 140 D Potassium 4.5 Chloride 105 Carbon Dioxide 30.2 Anion Gap 5 BUN 15 Creatinine 0.91 Estimated GFR 63 L POC Glucose 136 H Random Glucose 133 H Calcium 8.8 D 04/10/18 05:58 Puncture Site Patient Temperature O2 Saturation ABG pH ABG pCO2 ABG pO2 ABG HCO3 ABG O2 Content ABG Base Excess ABG Methemoglobin Brayan Test Hemoglobin Carboxyhemoglobin O2 Delivery Device Liter Flow Inspired O2 Critical Value Sodium 138 Potassium 4.6 Chloride 105 Carbon Dioxide 25.7 Anion Gap 7 BUN 14 Creatinine 0.96 Estimated GFR 59 L POC Glucose Random Glucose 149 H Calcium 8.7 Review/Management - Review/Management Plan: imp feels like withdrawing will give back a little mso4 oob mri neg eeg triphasics c/w met enceph i dw her and wt loss needed less meds recheck abg 04/10/18 looks well today defer to med team on co2 retention will set up sleep study o/p dr grewal needs wt loss and less meds abg still some co2 retention 7.35 neuro berger recovered and will sign off met enceph from co2 retention acidosis and overmedication ok for u to restart antidepressant
--- NOTE | 2018-04-10 09:01 | P.PNIM ---
Subjective Interval history: pt says she will be agreeable to a 50% reduction in her pain medications she was complaining of w/d sx's yesterday with lower doses. more awake and alert today. Physical Exam Vital signs: Vital Signs 04/09/18 09:00 04/09/18 10:00 04/09/18 10:58 Temperature Pulse Rate 89 81 Respiratory Rate 16 Blood Pressure 159/83 H 164/72 H Pulse Oximetry 96 99 04/09/18 11:00 04/09/18 12:00 04/09/18 12:14 Temperature 98.5 F Pulse Rate 81 61 62 Respiratory Rate 20 16 Blood Pressure 158/78 H 178/79 H 178/79 H Pulse Oximetry 98 91 L 95 04/09/18 13:00 04/09/18 13:11 04/09/18 14:00 Temperature Pulse Rate 84 78 65 Respiratory Rate 16 18 21 Blood Pressure 185/81 H 174/79 H Pulse Oximetry 96 100 04/09/18 15:00 04/09/18 16:00 04/09/18 16:08 Temperature 98.7 F Pulse Rate 50 L 61 74 Respiratory Rate 17 26 H 18 Blood Pressure 183/81 H 195/87 H Pulse Oximetry 100 100 100 04/09/18 17:00 04/09/18 17:31 04/09/18 18:00 Temperature Pulse Rate 80 95 H Respiratory Rate 16 14 32 H Blood Pressure Pulse Oximetry 04/09/18 18:19 04/09/18 18:21 04/09/18 18:42 Temperature Pulse Rate 61 62 58 L Respiratory Rate 11 L 12 16 Blood Pressure 239/100 H 223/98 H 207/80 H Pulse Oximetry 87 L 89 L 96 04/09/18 19:00 04/09/18 19:26 04/09/18 20:00 Temperature Pulse Rate 50 L 54 L 66 Respiratory Rate 34 H 27 H 14 Blood Pressure 206/77 H 190/108 H Pulse Oximetry 93 L 83 L 90 L 04/09/18 21:00 04/09/18 21:07 04/09/18 22:00 Temperature Pulse Rate 82 80 66 Respiratory Rate 17 18 35 H Blood Pressure 175/77 H 182/78 H Pulse Oximetry 84 L 81 L 95 04/09/18 22:28 04/09/18 23:00 04/09/18 23:04 Temperature Pulse Rate 51 L 52 L Respiratory Rate 18 18 Blood Pressure 167/71 H Pulse Oximetry 94 L 90 L 95 04/10/18 00:00 04/10/18 01:00 04/10/18 01:03 Temperature Pulse Rate 66 56 L 58 L Respiratory Rate 18 18 17 Blood Pressure 138/84 195/83 H Pulse Oximetry 80 L 93 L 89 L 04/10/18 02:00 04/10/18 03:00 04/10/18 03:06 Temperature Pulse Rate 46 L 55 L 70 Respiratory Rate 18 15 19 Blood Pressure 198/94 H 219/112 H 194/141 H Pulse Oximetry 93 L 87 L 81 L 04/10/18 03:08 04/10/18 04:00 04/10/18 04:01 Temperature Pulse Rate 72 51 L 63 Respiratory Rate 17 13 43 H Blood Pressure 207/93 H 191/79 H Pulse Oximetry 94 L 90 L 92 L 04/10/18 05:00 04/10/18 06:00 04/10/18 06:01 Temperature Pulse Rate 44 L 77 65 Respiratory Rate 22 29 H 13 Blood Pressure 205/91 H 166/68 H Pulse Oximetry 96 96 97 Intake & Output 04/09/18 04/10/18 04/10/18 18:59 06:59 18:59 Intake Total 1900 / 1900 480 / 480 Output Total 1500 / 1500 Balance 400 / 400 480 / 480 Weight 124.5 kg Intake: IV 1000 / 1000 NS Inj 1,000 ML @ 100 mls/hr IV 1000 / 1000 .CONT .Q10H [facility] Rx#:[id number] Oral 900 / 900 480 / 480 Output: Urine 1500 / 1500 Other: # Voids 5 Date of Last Bowel Movement 04/09/18 04/09/18 heart reg lung cta abd s/nt ext no edema Results - Labs CBC & Chem 7: 04/07/18 22:50 04/10/18 05:58 Laboratory Results - last 24 hr 04/09/18 04/09/18 04/09/18 04:29 11:34 11:39 Puncture Site Left radial Patient Temperature 98.6 O2 Saturation 92 ABG pH 7.35 L ABG pCO2 55 H* ABG pO2 74 ABG HCO3 30 H ABG O2 Content 13.7 ABG Base Excess 4.3 H ABG Methemoglobin 1.2 Brayan Test Present Hemoglobin 10.5 L Carboxyhemoglobin 1.3 O2 Delivery Device Nasal cannula Liter Flow 2.00 Inspired O2 21 Critical Value Yes Sodium 140 D Potassium 4.5 Chloride 105 Carbon Dioxide 30.2 Anion Gap 5 BUN 15 Creatinine 0.91 Estimated GFR 63 L POC Glucose 136 H Random Glucose 133 H Calcium 8.8 D 04/10/18 05:58 Puncture Site Patient Temperature O2 Saturation ABG pH ABG pCO2 ABG pO2 ABG HCO3 ABG O2 Content ABG Base Excess ABG Methemoglobin Brayan Test Hemoglobin Carboxyhemoglobin O2 Delivery Device Liter Flow Inspired O2 Critical Value Sodium 138 Potassium 4.6 Chloride 105 Carbon Dioxide 25.7 Anion Gap 7 BUN 14 Creatinine 0.96 Estimated GFR 59 L POC Glucose Random Glucose 149 H Calcium 8.7 - Imaging Impressions Head MRI 04/09/18 00:00 CONCLUSION: 1. No acute intracranial abnormality. Head MRA 04/09/18 00:00 CONCLUSION: 1. No large vessel stenosis or aneurysm. 2. Probable venous angioma posterior fossa. Neck MRA 04/09/18 00:00 CONCLUSION: 1. No carotid stenosis Percent stenosis is calculated using the diameter of the stenotic region over the diameter of the normal distal internal carotid artery Assessment and Plan - Assessment (1) Transient neurological symptoms Code(s): R29.818 - Other symptoms and signs involving the nervous system Status: Acute Plan: 1. diplopia. 2. ann marie/hyponatremia/respiratory acidosis and hypercapnea due to polypharmacy and untreated fredi. Pt presented with concern for polypharmacy(long acting morphine,hydrocodone, tizanidine,primidone,ativan,lyrica,paxil) She says recently paxil was added and before that several drug tried for her depression that sedated her. She says cytomel also added for "depression" neurology evaluating . medication list trimmed down. today pt asking me not to cut her off "cold turkey". she will agree to 50% reduction in her pain meds. mri/a brain and neck. negative for acute process stop ivf. hyponatremia and ann marie resolved. will transfer out of ICU. PT and oob will have pt on morphine ER 30mg tid(instead of 60mg tid) arrange outpt sleep study with neurology. prn bp meds ordered for htn. 2. htn meds as tolerated 3. dm 2 home meds held on admission ssi. observe. 4. depression. (2) Hypoxia Code(s): R09.02 - Hypoxemia Status: Acute (3) Polypharmacy Code(s): Z79.899 - Other alf (current) drug therapy Status: Chronic
[2018-04-10] MEDS: LORazepam 1 MG Tablet PO SCH ×2 (09:21→21:59)
[2018-04-10] MEDS: Morphine Sulfate 30 MG SR Tablet PO SCH ×3 (12:35→18:47)
[2018-04-10] MEDS ORDERED: hydrALAZINE HCl Inj 20 MG/ML Vial IV.PUSH PRN (14:16)
[2018-04-10] MEDS ORDERED: hydrALAZINE 25 MG Tablet PO ONE (14:45)
[2018-04-10] MEDS: hydrALAZINE 25 MG Tablet PO PRN ×2 (19:46→23:15)
[2018-04-11] MEDS: Morphine Sulfate 30 MG SR Tablet PO SCH ×3 (01:38→18:05)
[2018-04-11] MEDS ORDERED: Dextrose 50% in Water 50 ML Vial IV.PUSH PRN (03:07)
[2018-04-11] MEDS: hydrALAZINE 25 MG Tablet PO PRN ×2 (03:11→08:08)
[2018-04-11] MEDS: Insulin NovoLOG Aspart Correctional Sugar Inj SQ SCH ×5 (03:47→20:05)
[2018-04-11] MEDS: Chlorhexidine Gluconate 2% 1 Pack (2 Cloths) TOPICAL SCH (04:27)
[2018-04-11] MEDS: Lisinopril 10 MG Tablet PO SCH (08:51)
[2018-04-11] MEDS: LORazepam 1 MG Tablet PO SCH ×2 (08:51→20:04)
[2018-04-11] MEDS: Enoxaparin Inj 40 MG/0.4 ML Syringe SQ SCH (08:51)
--- NOTE | 2018-04-11 10:25 | P.PNIM ---
Subjective Interval history: pt denies LH or dizziness. just feels "puffy" in her joints. had some abdomen bloating. Physical Exam Vital signs: Vital Signs 04/10/18 12:00 04/10/18 13:05 04/10/18 14:00 Temperature 98.0 F Pulse Rate 45 L 44 L Respiratory Rate 18 14 Blood Pressure 174/145 H Pulse Oximetry 04/10/18 16:00 04/10/18 16:27 04/10/18 17:00 Temperature 98.4 F Pulse Rate 73 Respiratory Rate 13 12 Blood Pressure 161/72 H Pulse Oximetry 04/10/18 18:00 04/10/18 20:00 04/10/18 20:50 Temperature 98.9 F Pulse Rate 58 L 41 L Respiratory Rate 23 12 Blood Pressure 224/92 H Pulse Oximetry 98 04/10/18 21:09 04/10/18 22:00 04/10/18 22:21 Temperature Pulse Rate 101 H Respiratory Rate 12 Blood Pressure Pulse Oximetry 99 04/11/18 00:00 04/11/18 02:00 04/11/18 03:10 Temperature 98.8 F Pulse Rate 42 L 39 L Respiratory Rate 23 20 Blood Pressure 210/85 H Pulse Oximetry 99 04/11/18 04:00 04/11/18 04:15 04/11/18 06:00 Temperature 98.2 F Pulse Rate 67 39 L Respiratory Rate 23 Blood Pressure 161/123 H 185/89 H Pulse Oximetry 96 04/11/18 08:00 04/11/18 10:00 Temperature Pulse Rate 45 L 41 L Respiratory Rate Blood Pressure Pulse Oximetry 98 Intake & Output 04/10/18 04/11/18 04/11/18 18:59 06:59 18:59 Intake Total 800 / 800 840 / 840 Output Total 700 / 700 Balance 100 / 100 840 / 840 Weight 124.5 kg Intake: Oral 800 / 800 840 / 840 Output: Urine 700 / 700 Other: # Voids 1 Date of Last Bowel Movement 04/09/18 04/11/18 # Bowel Movements 0 heart reg lung cta abd s/nt ext no edema Results - Labs CBC & Chem 7: 04/07/18 22:50 04/10/18 05:58 Laboratory Results - last 24 hr 08/10/18 08/13/18 08/13/18 13:05 03:01 08:53 POC Glucose 149 H 133 H RPR Nonreactive Assessment and Plan - Assessment (1) Transient neurological symptoms Code(s): R29.818 - Other symptoms and signs involving the nervous system Status: Acute Plan: 1. diplopia. 2. ann marie/hyponatremia/respiratory acidosis and hypercapnea due to polypharmacy and untreated fredi. Pt presented with concern for polypharmacy(long acting morphine,hydrocodone, tizanidine,primidone,ativan,lyrica,paxil) She says recently paxil was added and before that several drug tried for her depression that sedated her. She says cytomel also added for "depression" neurology evaluating . medication list trimmed down. today pt asking me not to cut her off "cold turkey". she will agree to 50% reduction in her pain meds. mri/a brain and neck. negative for acute process stop ivf. hyponatremia and ann marie resolved. PT and oob will have pt on morphine ER 30mg tid(instead of 60mg tid) arrange outpt sleep study with neurology. prn bp meds ordered for htn. transfer from ICU held due to htn/shane. asymptomatic. probably some vagal tone. resume her hctz and increase hydralazine scheduled. hold clonidine. 2. htn meds as tolerated 3. dm 2 home meds held on admission ssi. observe. 4. depression. 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
[2018-04-11] MEDS: hydroCHLOROthiazide 25 MG Tablet PO SCH (10:53)
[2018-04-11] MEDS: hydrALAZINE 50 MG Tablet PO SCH ×2 (11:19→13:13)
[2018-04-11 12:28] LABS: Anti-Nuclear Antibody Screen Neg (Neg)
--- NOTE | 2018-04-11 16:41 | ECG ---
Date Performed: 04/11/2018 Time Performed: 08:19:25 PTAGE: 62 years EKG: SINUS BRADYCARDIA BORDERLINE ECG Since the PREVIOUS TRACING , no significant change noted PREVIOUS TRACIN04/10/2018 11.45 DOCTOR: Chad López Interpretating Date/Time 04/11/2018 16:40:15
--- NOTE | 2018-04-11 16:41 | ECG ---
Date Performed: 04/10/2018 Time Performed: 11:45:28 PTAGE: 62 years EKG: Sinus bradycardia with sinus arrhythmia. Poor R wave progression - probable normal variant Low QRS voltages in precordial leads Borderline ECG Since the PREVIOUS TRACING , no significant change noted PREVIOUS TRACIN04/07/2018 23.07 DOCTOR: Chad López Interpretating Date/Time 04/11/2018 16:40:01
[2018-04-11] MEDS: niCARdipine Inj 25 MG in Sodium Chlor 0.9% Inj 240 ML IV.CONT PRN ×2 (17:05→21:18)
--- NOTE | 2018-04-11 19:15 | P.PN ---
Subjective Interval history: She is alert and talking. On O2 2l. Used BIPAP last night. On BP Meds. Physical Exam Vital signs: Vital Signs 04/10/18 20:00 04/10/18 20:50 04/10/18 21:09 Temperature 98.9 F Pulse Rate 41 L Respiratory Rate 23 12 Blood Pressure 224/92 H Pulse Oximetry 98 99 04/10/18 22:00 04/10/18 22:21 04/11/18 00:00 Temperature 98.8 F Pulse Rate 101 H 42 L Respiratory Rate 12 23 Blood Pressure 210/85 H Pulse Oximetry 99 04/11/18 02:00 04/11/18 03:10 04/11/18 04:00 Temperature 98.2 F Pulse Rate 39 L 67 Respiratory Rate 20 23 Blood Pressure 161/123 H Pulse Oximetry 96 04/11/18 04:15 04/11/18 06:00 04/11/18 08:00 Temperature 98.2 F Pulse Rate 39 L 39 L Respiratory Rate 17 Blood Pressure 185/89 H 226/90 H Pulse Oximetry 99 04/11/18 10:00 04/11/18 11:32 04/11/18 12:00 Temperature 98.1 F Pulse Rate 41 L 37 L Respiratory Rate 18 19 Blood Pressure 174/73 H Pulse Oximetry 96 04/11/18 13:14 04/11/18 14:00 04/11/18 16:00 Temperature 98.4 F Pulse Rate 41 L 46 L Respiratory Rate 22 10 L Blood Pressure 218/91 H Pulse Oximetry 97 04/11/18 18:00 Temperature Pulse Rate 66 Respiratory Rate Blood Pressure Pulse Oximetry Intake & Output 04/11/18 04/11/18 04/12/18 06:59 18:59 06:59 Intake Total 840 / 840 720 / 720 Balance 840 / 840 720 / 720 Weight 124.5 kg Intake: Oral 840 / 840 720 / 720 Other: # Voids 1 2 Date of Last Bowel Movement 04/11/18 # Bowel Movements 0 Narrative: awake alert smiling no tremors Obese mid aged W/F GENERAL: SKIN: Warm and dry. HEAD: Atraumatic. Normocephalic. EYES: Pupils equal and round. No scleral icterus. No injection or drainage. ENT: No nasal bleeding or discharge. Mucous membranes pink and moist. NECK: Trachea midline. No JVD. CARDIOVASCULAR: Regular rate and rhythm. RESPIRATORY: No accessory muscle use. Clear to auscultation. Breath sounds equal bilaterally. GASTROINTESTINAL: Abdomen soft, non-tender, nondistended. Hepatic and splenic margins not palpable. MUSCULOSKELETAL: Extremities without clubbing, cyanosis,but has edema. No obvious deformities. NEUROLOGICAL: Awake and alert. No obvious cranial nerve deficits. Motor grossly within normal limits. Normal speech. PSYCHIATRIC: Appropriate mood and affect. Results - Labs CBC & Chem 7: 04/07/18 22:50 04/10/18 05:58 Laboratory Results - last 24 hr 04/08/18 04/11/18 04/11/18 13:05 03:01 08:53 POC Glucose 149 H 133 H ROSE Screen Neg RPR Nonreactive 04/11/18 04/11/18 11:31 17:13 POC Glucose 167 H 246 H ROSE Screen RPR Assessment and Plan - Assessment (1) Sleep apnea in adult Code(s): G47.30 - Sleep apnea, unspecified Status: Acute (2) Hypoventilation associated with obesity syndrome Code(s): E66.2 - Morbid (severe) obesity with alveolar hypoventilation Status : Acute (3) Respiratory failure with hypercapnia Code(s): J96.92 - Respiratory failure, unspecified with hypercapnia Status: Acute (4) Transient neurological symptoms Code(s): R29.818 - Other symptoms and signs involving the nervous system Status: Acute (5) Hypoxia Code(s): R09.02 - Hypoxemia Status: Acute (6) Polypharmacy Code(s): Z79.899 - Other terminal computer operator (current) drug therapy Status: Chronic (7) Renal insufficiency, mild Code(s): N28.9 - Disorder of kidney and ureter, unspecified Status: Acute - Plan 1. O2 2 L daytime. 2. BiPAP at HS 15/5 CM FIO2 28 % 3. Nebs qid PRN with atrovent. 4. Continue weaning off pain meds. 5. CBC,BMP ,PFT. 6. Sleep test as OP
[2018-04-11] MEDS: Lisinopril 20 MG Tablet PO SCH (20:04)
[2018-04-11] MEDS: hydrALAZINE 25 MG Tablet PO SCH (21:59)
[2018-04-12] MEDS: niCARdipine Inj 25 MG in Sodium Chlor 0.9% Inj 240 ML IV.CONT PRN ×4 (00:26→23:39)
[2018-04-12] MEDS: Morphine Sulfate 30 MG SR Tablet PO SCH ×3 (02:22→17:19)
[2018-04-12] MEDS: Insulin NovoLOG Aspart Correctional Sugar Inj SQ SCH ×5 (02:23→20:04)
[2018-04-12] MEDS: Chlorhexidine Gluconate 2% 1 Pack (2 Cloths) TOPICAL SCH (03:19)
[2018-04-12] MEDS: hydrALAZINE 25 MG Tablet PO SCH ×3 (05:52→21:23)
[2018-04-12] MEDS: LORazepam 1 MG Tablet PO SCH ×2 (08:49→20:04)
[2018-04-12] MEDS: hydroCHLOROthiazide 25 MG Tablet PO SCH (08:49)
[2018-04-12] MEDS: Lisinopril 20 MG Tablet PO SCH ×2 (08:50→20:04)
[2018-04-12] MEDS: Enoxaparin Inj 40 MG/0.4 ML Syringe SQ SCH (08:50)
[2018-04-12] MEDS: Sod Chloride 0.9% Inj 1,000 ML IV.CONT SCH ×2 (09:08→11:43)
--- NOTE | 2018-04-12 12:19 | P.PN ---
Subjective Interval history: Alert and talking well. On O2 3 L. HTN not controlled. Good output. Used BIPAP last PM. Physical Exam Vital signs: Vital Signs 04/11/18 13:14 04/11/18 14:00 04/11/18 16:00 Temperature 98.4 F Pulse Rate 41 L 46 L Respiratory Rate 22 10 L Blood Pressure 218/91 H Pulse Oximetry 97 04/11/18 18:00 04/11/18 20:00 04/11/18 20:49 Temperature 99.5 F Pulse Rate 66 63 Respiratory Rate 14 Blood Pressure 128/62 Pulse Oximetry 95 98 04/11/18 22:00 04/11/18 23:37 04/12/18 00:00 Temperature 99.7 F H Pulse Rate 72 56 L Respiratory Rate 18 Blood Pressure 145/66 H Pulse Oximetry 96 96 04/12/18 02:00 04/12/18 03:32 04/12/18 04:00 Temperature 99.3 F Pulse Rate 49 L 54 L Respiratory Rate 15 Blood Pressure 159/70 H Pulse Oximetry 97 96 04/12/18 06:00 04/12/18 08:27 04/12/18 08:48 Temperature Pulse Rate 71 Respiratory Rate 13 Blood Pressure Pulse Oximetry 97 Intake & Output 04/11/18 04/12/18 04/12/18 18:59 06:59 18:59 Intake Total 720 / 720 1200 / 1200 1250 / 1250 Output Total 1575 / 1575 Balance 720 / 720 -375 / -375 1250 / 1250 Weight 125 kg Intake: IV 720 / 720 1250 / 1250 Cardene Inj 25 MG In NS Inj 240 720 / 720 250 / 250 ML @ 5 MG/HR 50 mls/hr IV.CONT TITRATE PRN Rx#:[id number] Oral 720 / 720 480 / 480 Output: Urine 1575 / 1575 Other: # Voids 2 Date of Last Bowel Movement 04/11/18 04/11/18 # Bowel Movements 0 Narrative: awake alert and conversing well. Obese mid aged W/F GENERAL: SKIN: Warm and dry. HEAD: Atraumatic. Normocephalic. EYES: Pupils equal and round. No scleral icterus. No injection or drainage. ENT: No nasal discharge. Mucous membranes pink and moist. NECK: Trachea midline. No JVD. CARDIOVASCULAR: Regular rate and rhythm. RESPIRATORY: No accessory muscle use. Occ wheeze heard. Breath sounds equal bilaterally. GASTROINTESTINAL: Abdomen soft, non-tender, nondistended. Hepatic and splenic margins not palpable. MUSCULOSKELETAL: Extremities without clubbing, cyanosis,but has mild edema. No obvious deformities. NEUROLOGICAL: Awake and alert. No obvious cranial nerve deficits. Motor grossly within normal limits. Normal speech. PSYCHIATRIC: Appropriate mood and affect. Results - Labs CBC & Chem 7: 04/07/18 22:50 04/10/18 05:58 Laboratory Results - last 24 hr 04/08/18 04/11/18 04/11/18 13:05 17:13 19:56 POC Glucose 246 H 179 H ROSE Screen Neg 04/12/18 02:18 POC Glucose 142 H ROSE Screen Assessment and Plan - Assessment (1) Sleep apnea in adult Code(s): G47.30 - Sleep apnea, unspecified Status: Acute (2) Hypoventilation associated with obesity syndrome Code(s): E66.2 - Morbid (severe) obesity with alveolar hypoventilation Status : Acute (3) Respiratory failure with hypercapnia Code(s): J96.92 - Respiratory failure, unspecified with hypercapnia Status: Acute (4) Transient neurological symptoms Code(s): R29.818 - Other symptoms and signs involving the nervous system Status: Acute (5) Hypoxia Code(s): R09.02 - Hypoxemia Status: Acute (6) Polypharmacy Code(s): Z79.899 - Other exterminator (current) drug therapy Status: Chronic (7) Renal insufficiency, mild Code(s): N28.9 - Disorder of kidney and ureter, unspecified Status: Acute - Plan 1. O2 2 L daytime. 2. BiPAP at HS 12/5 CM FIO2 28 % 3. Nebs qid PRN with atrovent. 4. Continue weaning off pain meds. 5. CBC,BMP ,PFT. 6. Sleep test as OP 7. Cardene drip and wean.
--- NOTE | 2018-04-12 12:54 | P.PNIM ---
Subjective Interval history: No new complaints. Physical Exam Vital signs: 04/11/18 22:00 04/11/18 23:37 04/12/18 00:00 Temperature 99.7 F H Pulse Rate 72 56 L Respiratory Rate 18 Blood Pressure 145/66 H Pulse Oximetry 96 96 Narrative: GENERAL: awake alert and conversing well. Obese mid aged W/F SKIN: Warm and dry. HEAD: Atraumatic. Normocephalic. EYES: Pupils equal and round. No scleral icterus. No injection or drainage. ENT: No nasal discharge. Mucous membranes pink and moist. NECK: Trachea midline. No JVD. CARDIOVASCULAR: Regular rate and rhythm. RESPIRATORY: No accessory muscle use. Occ wheeze heard. Breath sounds equal bilaterally. GASTROINTESTINAL: Abdomen soft, non-tender, nondistended. Hepatic and splenic margins not palpable. MUSCULOSKELETAL: Extremities without clubbing, cyanosis,but has mild edema. No obvious deformities. NEUROLOGICAL: Awake and alert. No obvious cranial nerve deficits. Motor grossly within normal limits. Normal speech. PSYCHIATRIC: Appropriate mood and affect. Results - Labs CBC & Chem 7: 04/07/18 22:50 04/10/18 05:58 Laboratory Results - last 24 hr 04/11/18 04/11/18 04/12/18 17:13 19:56 02:18 POC Glucose 246 H 179 H 142 H 04/12/18 12:11 POC Glucose 123 H Assessment and Plan - Assessment (1) Transient neurological symptoms Code(s): R29.818 - Other symptoms and signs involving the nervous system Status: Acute Plan: 1. diplopia. 2. ann marie/hyponatremia/respiratory acidosis and hypercapnea due to polypharmacy and untreated abby. Pt presented with concern for polypharmacy(long acting morphine,hydrocodone, tizanidine,primidone,ativan,lyrica,paxil) She says recently paxil was added and before that several drug tried for her depression that sedated her. She says cytomel also added for "depression" - comgmt with Neurology - MRI/A brain --> NO acute findings - Pt's narcotics & other sedating medications were markedly decreased upon admission - ann marie, resolved, IVFs stopped - PT, oob - telemetry reviewed, no marked bradycardia - transfer out of ICU - will need sleep study for ABBY outpt 2. htn - narcotic withdrawl likely contributing - lisinopril - HCTZ - apresoline - cardene drip 3. dm 2 home meds held on admission ssi. observe. 4. depression. (2) Hypoxia Code(s): R09.02 - Hypoxemia Status: Acute (3) Polypharmacy Code(s): Z79.899 - Other intermediate designer (current) drug therapy Status: Chronic
[2018-04-12] MEDS: hydrALAZINE 25 MG Tablet PO PRN (17:19)
[2018-04-13] MEDS: Morphine Sulfate 30 MG SR Tablet PO SCH ×3 (01:34→17:46)
[2018-04-13] MEDS: niCARdipine Inj 25 MG in Sodium Chlor 0.9% Inj 240 ML IV.CONT PRN ×3 (01:48→07:21)
[2018-04-13] MEDS: Insulin NovoLOG Aspart Correctional Sugar Inj SQ SCH ×5 (03:56→21:45)
[2018-04-13] MEDS: Chlorhexidine Gluconate 2% 1 Pack (2 Cloths) TOPICAL SCH (03:57)
[2018-04-13] MEDS: hydrALAZINE 25 MG Tablet PO SCH ×3 (06:09→21:45)
[2018-04-13] MEDS: hydroCHLOROthiazide 25 MG Tablet PO SCH (08:37)
[2018-04-13] MEDS: Lisinopril 20 MG Tablet PO SCH ×2 (08:39→20:47)
[2018-04-13] MEDS: Enoxaparin Inj 40 MG/0.4 ML Syringe SQ SCH (08:39)
[2018-04-13] MEDS: LORazepam 1 MG Tablet PO SCH ×2 (08:39→20:47)
[2018-04-13] MEDS: hydrALAZINE 25 MG Tablet PO PRN ×2 (11:16→17:57)
--- NOTE | 2018-04-13 12:17 | P.PN ---
Subjective Interval history: Alert and conversing well. Needs Home o2 and CPAP. BP not yet controlled.On O2 2 L Physical Exam Vital signs: Vital Signs 04/12/18 14:00 04/12/18 16:00 04/12/18 18:00 Temperature 98.1 F Pulse Rate 64 80 69 Respiratory Rate 19 Blood Pressure 132/60 Pulse Oximetry 97 04/12/18 20:00 04/12/18 21:05 04/12/18 22:00 Temperature 98.3 F Pulse Rate 56 L 57 L Respiratory Rate 15 Blood Pressure 200/86 H Pulse Oximetry 95 96 04/13/18 00:00 04/13/18 02:00 04/13/18 04:00 Temperature 98.4 F 98.4 F Pulse Rate 46 L 49 L 47 L Respiratory Rate 15 17 Blood Pressure 190/80 H 150/70 H Pulse Oximetry 98 96 04/13/18 06:00 04/13/18 08:09 Temperature Pulse Rate 46 L Respiratory Rate Blood Pressure Pulse Oximetry 93 L Intake & Output 04/12/18 04/13/18 04/13/18 18:59 06:59 18:59 Intake Total 1999 / 2000 960 / 960 250 / 250 Output Total 750 / 750 725 / 725 Balance 1250 / 1250 235 / 235 250 / 250 Weight 125 kg Intake: IV 1300 / 1300 480 / 480 250 / 250 Cardene Inj 25 MG In NS Inj 240 300 / 300 480 / 480 250 / 250 ML @ 5 MG/HR 50 mls/hr IV.CONT TITRATE PRN Rx#:[id number] Oral 700 / 700 480 / 480 Output: Urine 750 / 750 725 / 725 Other: # Voids 2 Date of Last Bowel Movement 04/11/18 04/11/18 # Bowel Movements 0 0 Narrative: GENERAL: awake alert and Oriented Obese mid aged W/F SKIN: Warm and dry. HEAD: Atraumatic. Normocephalic. EYES: Pupils equal and round. No scleral icterus. No injection or drainage. ENT: No nasal discharge. Mucous membranes pink and moist. NECK: Trachea midline. No JVD. CARDIOVASCULAR: Regular rate and rhythm. RESPIRATORY: No accessory muscle use. Decreased breath sounds .Occ wheeze heard. Breath sounds equal bilaterally. GASTROINTESTINAL: Abdomen soft, non-tender, nondistended. Hepatic and splenic margins not palpable. MUSCULOSKELETAL: Extremities without clubbing, cyanosis,but has mild edema. No obvious deformities. NEUROLOGICAL: Awake and alert. No obvious cranial nerve deficits. Motor grossly within normal limits. Normal speech. PSYCHIATRIC: Appropriate mood and affect. Results - Labs CBC & Chem 7: 04/07/18 22:50 04/10/18 05:58 Laboratory Results - last 24 hr 04/12/18 04/12/18 04/12/18 12:11 17:13 19:34 POC Glucose 123 H 153 H 163 H 04/13/18 04/13/18 04/13/18 03:54 07:35 11:55 POC Glucose 137 H 127 H 136 H Assessment and Plan - Assessment (1) Sleep apnea in adult Code(s): G47.30 - Sleep apnea, unspecified Status: Acute (2) Hypoventilation associated with obesity syndrome Code(s): E66.2 - Morbid (severe) obesity with alveolar hypoventilation Status : Acute (3) Respiratory failure with hypercapnia Code(s): J96.92 - Respiratory failure, unspecified with hypercapnia Status: Acute (4) Transient neurological symptoms Code(s): R29.818 - Other symptoms and signs involving the nervous system Status: Acute (5) Hypoxia Code(s): R09.02 - Hypoxemia Status: Acute (6) Polypharmacy Code(s): Z79.899 - Other terminal worker (current) drug therapy Status: Chronic (7) Renal insufficiency, mild Code(s): N28.9 - Disorder of kidney and ureter, unspecified Status: Acute - Plan 1. O2 2 L daytime.and HS 2. CPAP at HS 10 CM with FIO2 28 % 3. Nebs qid PRN with atrovent. 4. Continue weaning off pain meds. 5. CBC,BMP. 6. Sleep test as OP 7. Add Ventolin HFA , 2 puffs TID PRN 8. Home soon or Rehab.
--- NOTE | 2018-04-13 17:49 | P.PNIM ---
Subjective Interval history: Pt c/o continued generalized pain. Pt admitted with hypercapnic respiratory failure. Will continue narcotics at current levels. Physical Exam Vital signs: 04/13/18 04:00 04/13/18 06:00 04/13/18 08:00 Temperature 98.4 F 99.2 F Pulse Rate 47 L 46 L 66 Respiratory Rate 17 13 Blood Pressure 150/70 H 162/76 H Pulse Oximetry 96 93 L 04/13/18 08:09 04/13/18 10:00 04/13/18 12:00 Temperature 99 F Pulse Rate 52 L 48 L Respiratory Rate 15 Blood Pressure 199/88 H Pulse Oximetry 93 L 97 Narrative: GENERAL: This is a well-nourished, well-developed patient, in no apparent distress. CARDIOVASCULAR: Regular rate and rhythm without murmurs, gallops, or rubs. RESPIRATORY: Clear to auscultation. Breath sounds equal bilaterally. No wheezes , rales, or rhonchi. GASTROINTESTINAL: Abdomen soft, non-tender, nondistended. Normal active bowel sounds MUSCULOSKELETAL: Extremities without clubbing, cyanosis, or edema. NEURO: Alert & Oriented x4 to person, place, time, situation. Moves all ext x4 Results - Labs CBC & Chem 7: 04/07/18 22:50 04/10/18 05:58 Laboratory Results - last 24 hr 04/12/18 04/13/18 04/13/18 19:34 03:54 07:35 POC Glucose 163 H 137 H 127 H 04/13/18 04/13/18 11:55 17:31 POC Glucose 136 H 139 H Assessment and Plan - Assessment (1) Transient neurological symptoms Code(s): R29.818 - Other symptoms and signs involving the nervous system Status: Acute Plan: 1. diplopia. 2. ann marie/hyponatremia/respiratory acidosis and hypercapnea due to polypharmacy and untreated abby. Pt presented with concern for polypharmacy(long acting morphine,hydrocodone, tizanidine,primidone,ativan,lyrica,paxil) She says recently paxil was added and before that several drug tried for her depression that sedated her. She says cytomel also added for "depression" - comgmt with Neurology - comgmt with Pul Med - MRI/A brain --> NO acute findings - Pt's narcotics & other sedating medications were markedly decreased upon admission - ann marie, resolved, IVFs stopped - PT, oob - telemetry reviewed, no marked bradycardia - will need sleep study for ABBY outpt 2. htn - narcotic withdrawl likely contributing - lisinopril - HCTZ - apresoline - started on catapress TTS-3 - cardene drip off since AM. Will try to keep off. 3. dm 2 home meds held on admission ssi. observe. 4. depression. (2) Hypoxia Code(s): R09.02 - Hypoxemia Status: Acute (3) Polypharmacy Code(s): Z79.899 - Other care home (current) drug therapy Status: Chronic
[2018-04-14] MEDS: Morphine Sulfate 30 MG SR Tablet PO SCH ×3 (02:51→17:28)
[2018-04-14] MEDS: hydrALAZINE 25 MG Tablet PO PRN ×4 (02:52→20:43)
[2018-04-14] MEDS: Insulin NovoLOG Aspart Correctional Sugar Inj SQ SCH ×5 (04:28→22:19)
[2018-04-14] MEDS: hydrALAZINE 25 MG Tablet PO SCH (05:35)
[2018-04-14] MEDS: Enoxaparin Inj 40 MG/0.4 ML Syringe SQ SCH (08:42)
[2018-04-14] MEDS: LORazepam 1 MG Tablet PO SCH ×2 (08:43→22:44)
[2018-04-14] MEDS: Lisinopril 20 MG Tablet PO SCH ×2 (08:43→20:39)
[2018-04-14] MEDS: hydroCHLOROthiazide 25 MG Tablet PO SCH (08:46)
--- NOTE | 2018-04-14 12:53 | P.PN ---
Subjective Interval history: She is alert and has some tremors. Now on [place] Q4H. gets up in a chair. No on BIPAP at HS Physical Exam Vital signs: Vital Signs 04/13/18 13:19 04/13/18 14:00 04/13/18 14:12 Temperature Pulse Rate 75 Respiratory Rate 14 19 Blood Pressure Pulse Oximetry 04/13/18 16:00 04/13/18 18:00 04/13/18 20:00 Temperature 97.6 F 99.0 F Pulse Rate 64 75 68 Respiratory Rate 12 18 Blood Pressure 185/81 H 186/86 H Pulse Oximetry 94 L 96 04/13/18 20:26 04/13/18 21:45 04/13/18 22:00 Temperature Pulse Rate 45 L Respiratory Rate 18 Blood Pressure Pulse Oximetry 96 04/14/18 00:00 04/14/18 02:00 04/14/18 04:00 Temperature 97.9 F Pulse Rate 60 72 43 L Respiratory Rate 18 18 Blood Pressure 178/78 H 181/77 H Pulse Oximetry 99 100 04/14/18 04:35 04/14/18 05:35 04/14/18 05:38 Temperature Pulse Rate 56 L Respiratory Rate 14 Blood Pressure Pulse Oximetry 96 04/14/18 08:00 04/14/18 10:00 04/14/18 11:44 Temperature 98 F Pulse Rate 48 L 47 L Respiratory Rate 13 Blood Pressure 158/67 H Pulse Oximetry 94 L 98 Intake & Output 04/13/18 04/14/18 04/14/18 18:59 06:59 18:59 Intake Total 1000 / 1000 1200 / 1200 Output Total 850 / 850 Balance 150 / 150 1200 / 1200 Weight 126 kg Intake: IV 500 / 500 Cardene Inj 25 MG In NS Inj 240 500 / 500 ML @ 5 MG/HR 50 mls/hr IV.CONT TITRATE PRN Rx#:[id number] Oral 500 / 500 1200 / 1200 Output: Urine 850 / 850 Other: # Voids 6 Date of Last Bowel Movement 04/11/18 04/11/18 04/11/18 # Bowel Movements 0 0 Narrative: GENERAL: This is a mid aged obese W/F patient, in no apparent distress. CARDIOVASCULAR: Regular rate and rhythm without murmurs, gallops, or rubs. RESPIRATORY: Clear to auscultation. Breath sounds equal and decreased bilaterally. No wheezes, rales, or rhonchi. GASTROINTESTINAL: Abdomen soft, non-tender, nondistended. Normal active bowel sounds MUSCULOSKELETAL: Extremities without clubbing, cyanosis, or edema. NEURO: Alert & Oriented x4 to person, place, time, situation. Moves all ext x4 Results - Labs CBC & Chem 7: 04/07/18 22:50 04/10/18 05:58 Laboratory Results - last 24 hr 04/13/18 04/13/18 04/14/18 17:31 20:18 02:55 POC Glucose 139 H 177 H 129 H 04/14/18 04/14/18 08:40 11:15 POC Glucose 113 H 174 H Assessment and Plan - Assessment (1) Sleep apnea in adult Code(s): G47.30 - Sleep apnea, unspecified Status: Acute (2) Hypoventilation associated with obesity syndrome Code(s): E66.2 - Morbid (severe) obesity with alveolar hypoventilation Status : Acute (3) Respiratory failure with hypercapnia Code(s): J96.92 - Respiratory failure, unspecified with hypercapnia Status: Acute (4) Transient neurological symptoms Code(s): R29.818 - Other symptoms and signs involving the nervous system Status: Acute (5) Hypoxia Code(s): R09.02 - Hypoxemia Status: Acute (6) Polypharmacy Code(s): Z79.899 - Other custodial (current) drug therapy Status: Chronic (7) Renal insufficiency, mild Code(s): N28.9 - Disorder of kidney and ureter, unspecified Status: Acute - Plan 1. O2 2 L daytime.and HS 2. CPAP at HS 10 CM with FIO2 28 % 3. Nebs qid PRN with atrovent. 4. Continue weaning off pain meds. 5. Calorie count with low calorie diet. 6. Sleep test as OP 7. Cont Ventolin HFA , 2 puffs TID PRN 8. Home soon or Rehab.
--- NOTE | 2018-04-14 13:18 | P.PNIM ---
Subjective Interval history: No new complaints. Physical Exam Vital signs: 04/14/18 08:00 04/14/18 10:00 04/14/18 11:44 Temperature 98 F Pulse Rate 48 L 47 L Respiratory Rate 13 Blood Pressure 158/67 H Pulse Oximetry 94 L 98 Narrative: GENERAL: This is a well-nourished, well-developed patient, in no apparent distress. CARDIOVASCULAR: Regular rate and rhythm without murmurs, gallops, or rubs. RESPIRATORY: Clear to auscultation. Breath sounds equal bilaterally. No wheezes , rales, or rhonchi. GASTROINTESTINAL: Abdomen soft, non-tender, nondistended. Normal active bowel sounds MUSCULOSKELETAL: Extremities without clubbing, cyanosis, or edema. NEURO: Alert & Oriented x4 to person, place, time, situation. Moves all ext x4 Results - Labs CBC & Chem 7: 04/07/18 22:50 04/10/18 05:58 Laboratory Results - last 24 hr 04/13/18 04/13/18 04/14/18 17:31 20:18 02:55 POC Glucose 139 H 177 H 129 H 04/14/18 04/14/18 08:40 11:15 POC Glucose 113 H 174 H - Imaging Chest X-Ray 04/07/18 22:26 CONCLUSION: No evidence of acute cardiopulmonary process. Head CT 04/07/18 22:26 CONCLUSION: 1. No acute intracranial abnormality is identified. 2. Please note that the entire superior aspect of the head was not imaged. Chest CTA 04/08/18 00:18 CONCLUSION: 1. No PE or acute abnormality is identified to explain the patient's shortness of breath. 2. Intra and extrahepatic bile duct dilatation in this patient post cholecystectomy. The biliary system was dilated to some degree on the prior study from July 2014 suggesting that this is a chronic finding. 3. Coronary artery calcification. Head MRI 04/09/18 00:00 CONCLUSION: 1. No acute intracranial abnormality. Head MRA 04/09/18 00:00 CONCLUSION: 1. No large vessel stenosis or aneurysm. 2. Probable venous angioma posterior fossa. Neck MRA 04/09/18 00:00 CONCLUSION: 1. No carotid stenosis Assessment and Plan - Assessment (1) Transient neurological symptoms Code(s): R29.818 - Other symptoms and signs involving the nervous system Status: Acute Plan: 1. diplopia. 2. ann marie/hyponatremia/respiratory acidosis and hypercapnea due to polypharmacy and untreated abby. Pt presented with concern for polypharmacy(long acting morphine,hydrocodone, tizanidine,primidone,ativan,lyrica,paxil) She says recently paxil was added and before that several drug tried for her depression that sedated her. She says cytomel also added for "depression" - comgmt with Neurology - comgmt with Pulm Med - MRI/A brain --> NO acute findings - Pt's narcotics & other sedating medications were markedly decreased upon admission - ann marie, resolved, IVFs stopped - PT, oob - telemetry reviewed, occasionally into the 40s - will need sleep study for ABBY outpt 2. htn - narcotic withdrawl likely contributing - lisinopril - HCTZ - apresoline, increase to 100mg TID - started on catapress TTS-3 (04/13) - cardene drip off since AM. Will try to keep off. - consider procardia XL 04/15, if BP NOT improved 3. dm 2 home meds held on admission ssi. observe. 4. depression. (2) Hypoxia Code(s): R09.02 - Hypoxemia Status: Acute (3) Polypharmacy Code(s): Z79.899 - Other fdc (current) drug therapy Status: Chronic
[2018-04-14] MEDS: Primidone 50 MG Tablet PO SCH ×2 (15:13→20:37)
[2018-04-14] MEDS: Nystatin 100,000 UNITS/GM Powder 15 GM Bottle TOPICAL SCH ×2 (18:28→22:45)
[2018-04-14] MEDS ORDERED: hydrALAZINE 25 MG Tablet PO ONE (23:45)
[2018-04-15] MEDS: Morphine Sulfate 30 MG SR Tablet PO SCH ×3 (02:00→17:51)
[2018-04-15] MEDS: Insulin NovoLOG Aspart Correctional Sugar Inj SQ SCH ×5 (03:30→21:22)
[2018-04-15] MEDS: hydrALAZINE 25 MG Tablet PO PRN ×3 (05:31→14:56)
[2018-04-15] MEDS: Primidone 50 MG Tablet PO SCH ×2 (08:44→20:20)
[2018-04-15] MEDS: hydroCHLOROthiazide 25 MG Tablet PO SCH ×2 (08:45→14:54)
[2018-04-15] MEDS: LORazepam 1 MG Tablet PO SCH ×2 (08:45→20:20)
[2018-04-15] MEDS: Enoxaparin Inj 40 MG/0.4 ML Syringe SQ SCH (08:45)
[2018-04-15] MEDS: Nystatin 100,000 UNITS/GM Powder 15 GM Bottle TOPICAL SCH ×4 (13:11→21:23)
--- NOTE | 2018-04-15 13:12 | MB ---
cc: Jonathan Minaya MD DATE: 04/15/2018 INDICATION: Bradycardia and hypertension. HISTORY OF PRESENT ILLNESS: This is a 62-year-old, morbid obese female with history of major depression, chronic back pain, who presented with constant dizziness back on 04/08/2018. The patient had no focal neurological deficits. She has had some bilateral lower extremity tremors. Creatinine was also elevated slightly. Over the course of her hospitalization, she has had extensive workup which has been relatively unremarkable. She was treated for hyponatremia and respiratory acidosis due to polypharmacy and untreated obstructive sleep apnea. Her blood pressure has been greater than 200 mmHg systolic with heart rates in the 30-40 beats per minute range. The patient denies any active symptoms related to either. We were consulted for further recommendations. PAST MEDICAL HISTORY: Asthma, anxiety, anemia, back pain, gastritis, hypertension, depression, tobacco abuse, tremor. SOCIAL HISTORY: Former smoker, smoked 15 years. Denies any alcohol use. REVIEW OF SYSTEMS: A 12-point review of system was performed and is negative unless otherwise as noted in the history of present illness. PHYSICAL EXAMINATION: VITAL SIGNS: Heart rate 40s, blood pressure systolic 200 mmHg. Most recent blood pressure is 205/89 mmHg. GENERAL: Alert and oriented x3, in no acute distress. HEENT: Exam shows pupils reactive to light and accommodation. Extraocular movements are intact. NECK: No elevation or increase distention. No thyromegaly, lymphadenopathy. No carotid bruits. LUNGS: Clear to auscultation bilaterally. CARDIOVASCULAR: Regular rate and rhythm without murmurs, rubs, or gallops. ABDOMEN: Nontender, nondistended with good bowel sounds. No hepatosplenomegaly. EXTREMITIES: Show no clubbing, cyanosis, or edema. Good peripheral pulses. NEUROLOGIC: Cranial nerves intact. Motor and sensory grossly intact. DIAGNOSTIC DATA: Echocardiogram from 04/08/2018 shows normal ejection fraction, diastolic dysfunction, minimal valvular heart disease. LABORATORY DATA: WBC 6.1, hemoglobin 11.1, platelet count is 281. Sodium 138, potassium 4.6, BUN is 14, creatinine 0.96. ELECTROCARDIOGRAM: Sinus bradycardia. ASSESSMENT AND PLAN: 1. Hypertensive urgency. 2. Bradycardia. PLAN: 1. The patient is currently asymptomatic and lying comfortably in bed. I suspect she will probably augment her heart rate appropriately with activities. It is likely just due to increased vagal tone. There is no underlying conductive heart disease. Blood pressure is very difficult to control. 2. Hypertension. Blood pressure very difficult to control. Apparently the patient states her blood pressure has looked good on an outpatient basis and she followed it regularly. She is currently on a clonidine patch in addition to lisinopril and losartan without room to titrate. SHE HAD PREVIOUSLY BEEN ON AMLODIPINE AND HER MAIN ALLERGY TO THAT IS MORE OF A SIDE EFFECT WITH BILATERAL LOWER EXTREMITY SWELLING. I am going to start her on nifedipine, in addition to titrate up her hydrochlorothiazide to try to counteract this. Lastly, we will add alpha antagonist, terazosin. Eventually will evaluate her for chronotropic incompetence with ambulation if her heart rate responds appropriately. Since her blood pressures are persistently elevated, I do not think is going to be worthwhile to pursue an aggressive secondary workup. She is tolerating angiotensin receptor vianca and angiotensin converting enzyme inhibitor without bump in her creatinine, so renal artery stenosis less likely. She is not having spikes in her blood pressure, so pheochromocytoma would be last. She does not have a significant elevated cortisol periods. We will continue with aggressive medical therapy. No underlying structural heart disease. MD MARLON Brown/ , 12:28 PM , 12:40 PM
--- NOTE | 2018-04-15 18:02 | P.PN ---
Subjective Interval history: Up and seems more alert. Off o2 sat 95. of CPAP now.Tremors as before. Physical Exam Vital signs: Vital Signs 04/14/18 18:00 04/14/18 18:01 04/14/18 18:47 Temperature Pulse Rate 51 L 50 L 48 L Respiratory Rate 17 22 15 Blood Pressure 182/74 H 175/76 H Pulse Oximetry 93 L 95 96 04/14/18 19:00 04/14/18 20:00 04/14/18 20:01 Temperature 99.1 F Pulse Rate 45 L 38 L 39 L Respiratory Rate 19 21 17 Blood Pressure 175/81 H 218/90 H Pulse Oximetry 95 95 95 04/14/18 20:35 04/14/18 20:46 04/14/18 21:00 Temperature Pulse Rate 51 L 49 L 54 L Respiratory Rate 19 18 21 Blood Pressure 215/93 H 189/86 H 199/86 H Pulse Oximetry 89 L 93 L 98 04/14/18 21:16 04/14/18 21:37 04/14/18 21:46 Temperature Pulse Rate 49 L 50 L 49 L Respiratory Rate 16 15 14 Blood Pressure 200/81 H 216/98 H 197/75 H Pulse Oximetry 97 96 95 04/14/18 22:00 04/14/18 22:01 04/14/18 22:31 Temperature Pulse Rate 54 L 50 L 42 L Respiratory Rate 18 23 9 L Blood Pressure 209/84 H 200/80 H Pulse Oximetry 97 97 96 04/14/18 22:37 04/14/18 22:44 04/14/18 23:00 Temperature Pulse Rate 44 L 41 L Respiratory Rate 18 20 16 Blood Pressure 215/87 H Pulse Oximetry 95 95 04/14/18 23:22 04/14/18 23:35 04/14/18 23:47 Temperature Pulse Rate 40 L 41 L Respiratory Rate 16 18 Blood Pressure 240/100 H 156/81 H Pulse Oximetry 95 95 96 04/15/18 00:00 04/15/18 00:01 04/15/18 00:31 Temperature 98.8 F Pulse Rate 37 L 37 L 39 L Respiratory Rate 16 19 20 Blood Pressure 223/102 H 218/94 H Pulse Oximetry 95 94 L 93 L 04/15/18 01:00 04/15/18 01:01 04/15/18 01:31 Temperature Pulse Rate 39 L 39 L 38 L Respiratory Rate 18 19 18 Blood Pressure 213/94 H 221/98 H Pulse Oximetry 92 L 93 L 94 L 04/15/18 02:00 04/15/18 02:01 04/15/18 02:31 Temperature Pulse Rate 43 L 55 L 46 L Respiratory Rate 18 15 14 Blood Pressure 179/137 H 218/95 H Pulse Oximetry 93 L 95 95 04/15/18 02:45 04/15/18 03:00 04/15/18 03:01 Temperature Pulse Rate 42 L 41 L Respiratory Rate 16 17 17 Blood Pressure 217/92 H Pulse Oximetry 94 L 94 L 04/15/18 03:31 04/15/18 04:00 04/15/18 04:01 Temperature 98.4 F Pulse Rate 39 L 37 L 37 L Respiratory Rate 18 20 17 Blood Pressure 228/97 H 219/92 H Pulse Oximetry 94 L 93 L 94 L 04/15/18 04:31 04/15/18 05:00 04/15/18 05:01 Temperature Pulse Rate 61 37 L 38 L Respiratory Rate 18 15 16 Blood Pressure 230/171 H 205/89 H Pulse Oximetry 91 L 93 L 93 L 04/15/18 06:00 04/15/18 07:39 04/15/18 08:00 Temperature 96.9 F L Pulse Rate 40 L 36 L Respiratory Rate 18 16 Blood Pressure 168/72 H Pulse Oximetry 96 04/15/18 10:00 04/15/18 11:00 04/15/18 12:00 Temperature Pulse Rate 42 L 36 L Respiratory Rate 16 18 Blood Pressure Pulse Oximetry 04/15/18 14:00 04/15/18 16:00 Temperature Pulse Rate 40 L 50 L Respiratory Rate Blood Pressure Pulse Oximetry Intake & Output 04/14/18 04/15/18 04/15/18 18:59 06:59 18:59 Intake Total 800 / 800 240 / 240 Output Total 800 / 800 Balance 800 / 800 -560 / -560 Weight 123 kg Intake: Oral 800 / 800 240 / 240 Output: Urine 800 / 800 Other: # Voids 6 1 Date of Last Bowel Movement 04/11/18 04/14/18 04/14/18 # Bowel Movements 1 0 Narrative: GENERAL: This is a obese W/F patient, in no apparent distress. CARDIOVASCULAR: Regular rate and rhythm without murmurs, gallops, or rubs. RESPIRATORY: Clear to auscultation. Breath sounds equal and decreased bilaterally. No wheezes, rales, or rhonchi. GASTROINTESTINAL: Abdomen soft, non-tender, nondistended. Normal active bowel sounds MUSCULOSKELETAL: Extremities without clubbing, cyanosis, or edema. NEURO: Alert & Oriented x4 to person, place, time, situation. Moves all ext x4 Results - Labs CBC & Chem 7: 04/07/18 22:50 04/10/18 05:58 Laboratory Results - last 24 hr 04/14/18 04/15/18 04/15/18 20:46 02:06 08:43 POC Glucose 135 H 140 H 182 H 04/15/18 04/15/18 12:49 17:53 POC Glucose 137 H 137 H Microbiology 04/14/18 22:18 Clean Catch Urine Urine Culture - Preliminary Immature growth - reincubate Assessment and Plan - Assessment (1) Sleep apnea in adult Code(s): G47.30 - Sleep apnea, unspecified Status: Acute (2) Hypoventilation associated with obesity syndrome Code(s): E66.2 - Morbid (severe) obesity with alveolar hypoventilation Status : Acute (3) Respiratory failure with hypercapnia Code(s): J96.92 - Respiratory failure, unspecified with hypercapnia Status: Acute (4) Transient neurological symptoms Code(s): R29.818 - Other symptoms and signs involving the nervous system Status: Acute (5) Hypoxia Code(s): R09.02 - Hypoxemia Status: Acute (6) Polypharmacy Code(s): Z79.899 - Other assisted (current) drug therapy Status: Chronic (7) Renal insufficiency, mild Code(s): N28.9 - Disorder of kidney and ureter, unspecified Status: Acute - Plan 1. O2 2 L PRN daytime.and HS 2. CPAP at HS 10 CM. 3. Nebs qid PRN with atrovent. 4. Continue weaning off pain meds. 5. Calorie count with low calorie diet. 6. Sleep test as OP 7. Cont Ventolin HFA , 2 puffs TID PRN 8.Labs in am.
--- NOTE | 2018-04-15 18:10 | P.PNIM ---
Subjective Interval history: No new complaints. Physical Exam Vital signs: 04/15/18 08:00 04/15/18 10:00 04/15/18 11:00 Temperature 96.9 F L Pulse Rate 36 L 42 L Respiratory Rate 16 16 Blood Pressure 168/72 H Pulse Oximetry 96 Narrative: GENERAL: This is a obese W/F patient, in no apparent distress. CARDIOVASCULAR: Regular rate and rhythm without murmurs, gallops, or rubs. RESPIRATORY: Clear to auscultation. Breath sounds equal and decreased bilaterally. No wheezes, rales, or rhonchi. GASTROINTESTINAL: Abdomen soft, non-tender, nondistended. Normal active bowel sounds MUSCULOSKELETAL: Extremities without clubbing, cyanosis, or edema. NEURO: Alert & Oriented x4 to person, place, time, situation. Moves all ext x4 Results - Labs CBC & Chem 7: 04/07/18 22:50 04/10/18 05:58 Laboratory Results - last 24 hr 04/14/18 04/15/18 04/15/18 20:46 02:06 08:43 POC Glucose 135 H 140 H 182 H 04/15/18 04/15/18 12:49 17:53 POC Glucose 137 H 137 H Microbiology 04/14/18 22:18 Clean Catch Urine Urine Culture - Preliminary Immature growth - reincubate - Imaging Chest X-Ray 04/07/18 22:26 CONCLUSION: No evidence of acute cardiopulmonary process. Head CT 04/07/18 22:26 CONCLUSION: 1. No acute intracranial abnormality is identified. 2. Please note that the entire superior aspect of the head was not imaged. Chest CTA 04/08/18 00:18 CONCLUSION: 1. No PE or acute abnormality is identified to explain the patient's shortness of breath. 2. Intra and extrahepatic bile duct dilatation in this patient post cholecystectomy. The biliary system was dilated to some degree on the prior study from July 2014 suggesting that this is a chronic finding. 3. Coronary artery calcification. Head MRI 04/09/18 00:00 CONCLUSION: 1. No acute intracranial abnormality. Head MRA 04/09/18 00:00 CONCLUSION: 1. No large vessel stenosis or aneurysm. 2. Probable venous angioma posterior fossa. Neck MRA 04/09/18 00:00 CONCLUSION: 1. No carotid stenosis Assessment and Plan - Assessment (1) Transient neurological symptoms Code(s): R29.818 - Other symptoms and signs involving the nervous system Status: Acute Plan: 1. diplopia. 2. ann marie/hyponatremia/respiratory acidosis and hypercapnea due to polypharmacy and untreated abby. Pt presented with concern for polypharmacy(long acting morphine,hydrocodone, tizanidine,primidone,ativan,lyrica,paxil) She says recently paxil was added and before that several drug tried for her depression that sedated her. She says cytomel also added for "depression" - comgmt with Neurology - comgmt with Pulm Med - MRI/A brain --> NO acute findings - Pt's narcotics & other sedating medications were markedly decreased upon admission - ann marie, resolved, IVFs stopped - PT, oob - telemetry reviewed, occasionally into the 40s - will need sleep study for BABY outpt 2. htn - narcotic withdrawl likely contributing - lisinopril - HCTZ - apresoline, increase to 100mg TID - started on catapress TTS-3 (04/13) - cardene drip off since AM. Will try to keep off. - appreciate input from Cardiology - Procardia 20mg TID 3. dm 2 home meds held on admission ssi. observe. 4. depression. (2) Hypoxia Code(s): R09.02 - Hypoxemia Status: Acute (3) Polypharmacy Code(s): Z79.899 - Other x ray developer (current) drug therapy Status: Chronic
--- NOTE | 2018-04-15 22:21 | US ---
EXAM DATE: 04/15/2018 10:18 PM EDT AGE/SEX: 62 years / Female INDICATIONS: Left upper extremity pain and edema. CLINICAL DATA: This is the patient's initial encounter. Patient reports that signs and symptoms have been present for 2 days and indicates a pain score of 5/10. MEDICAL/SURGICAL HISTORY: Asthma. Anemia. Hypertension. Back pain. Gastritis. PTSD. Tremo rs. Cholecystectomy. Hysterectomy. Laminectomy. Breast biopsy. COMPARISON: No prior exams available for comparison. FINDINGS: There is nonocclusive thrombus in the mid cephalic vein at the level of the antecubital fo ssa. There is also thrombus in the superficial vein in the posterior forearm. The internal jugular ve in is patent. The subclavian, axillary, brachial and basilic veins demonstrate normal venous waveform s and augmentation response with no evidence of thrombosis. Other: None. CONCLUSION: 1. No evidence of deep venous thrombosis. 2. Superficial venous thrombosis. Electronically signed by: Alex Dodson MD 04/15/2018 10:20 PM EDT
[2018-04-16] MEDS: Morphine Sulfate 30 MG SR Tablet PO SCH ×3 (02:03→18:24)
[2018-04-16] MEDS: Insulin NovoLOG Aspart Correctional Sugar Inj SQ SCH ×4 (03:21→18:23)
[2018-04-16] MEDS: LORazepam 1 MG Tablet PO SCH ×2 (09:07→23:04)
[2018-04-16] MEDS: hydroCHLOROthiazide 25 MG Tablet PO SCH (09:08)
[2018-04-16] MEDS: Primidone 50 MG Tablet PO SCH ×2 (09:08→20:13)
[2018-04-16] MEDS: Enoxaparin Inj 40 MG/0.4 ML Syringe SQ SCH (09:09)
[2018-04-16] MEDS: Nystatin 100,000 UNITS/GM Powder 15 GM Bottle TOPICAL SCH ×4 (09:09→23:11)
--- NOTE | 2018-04-16 09:50 | P.PNCA ---
Subjective Interval history: no events Physical Exam Vital signs: Vital Signs 04/15/18 10:00 04/15/18 11:00 04/15/18 12:00 Temperature 97.7 F Pulse Rate 42 L 39 L Respiratory Rate 16 16 Blood Pressure 218/90 H Pulse Oximetry 94 L 04/15/18 14:00 04/15/18 16:00 04/15/18 18:00 Temperature 97.8 F Pulse Rate 40 L 55 L 49 L Respiratory Rate 16 Blood Pressure 144/67 H Pulse Oximetry 93 L 04/15/18 20:00 04/15/18 21:56 04/15/18 22:00 Temperature 98 F Pulse Rate 58 L 64 Respiratory Rate 19 Blood Pressure 190/90 H Pulse Oximetry 97 93 L 04/16/18 00:00 04/16/18 02:00 04/16/18 04:00 Temperature 98.2 F 98.2 F Pulse Rate 41 L 54 L 45 L Respiratory Rate 20 21 Blood Pressure 167/77 H 150/67 H Pulse Oximetry 92 L 92 L 04/16/18 06:00 Temperature Pulse Rate 39 L Respiratory Rate Blood Pressure Pulse Oximetry Intake & Output 04/15/18 04/16/18 04/16/18 18:59 06:59 18:59 Intake Total 480 / 480 250 / 250 Balance 480 / 480 250 / 250 Weight 123 kg Intake: Oral 480 / 480 250 / 250 Other: # Voids 4 2 Date of Last Bowel Movement 04/14/18 04/14/18 # Bowel Movements 1 - Constitutional no acute distress - Routine HEENT Exam Eye: Present: EOMI, PERRL ENT: Present: mucous membranes moist - Routine Neck Exam Absent: JVD - Routine Respiratory Exam Present: CTA bilaterally - Routine Cardiovascular Exam Present: RRR. Absent: murmur - Routine Abdominal Exam Present: soft, normoactive bowel sounds - Routine Extremities Exam Absent: edema Assessment and Plan - Assessment (1) Hypertensive urgency Code(s): I16.0 - Hypertensive urgency Status: Acute - Plan HTN urgency - BP improved. continue ARB, procardia, terazosin, HCTZ. no secondary workup for now. bradycardia - HR 30-40 bpm range. asymptomatic. no conduction disease. No indication for PPM at this time. will reassess when ambulatory for chronotropic incompetence. avoid AVN blocking agents for HTN will sign off for now call with further questions
--- NOTE | 2018-04-16 13:44 | P.PNIM ---
Subjective Interval history: Pt has NO new complaints. Physical Exam Vital signs: 04/16/18 10:00 04/16/18 12:00 Temperature 98.1 F Pulse Rate 66 41 L Respiratory Rate 18 Blood Pressure 138/65 Pulse Oximetry 91 L Narrative: GENERAL: This is a obese W/F patient, in no apparent distress. CARDIOVASCULAR: Regular rate and rhythm without murmurs, gallops, or rubs. RESPIRATORY: Clear to auscultation. Breath sounds equal and decreased bilaterally. No wheezes, rales, or rhonchi. GASTROINTESTINAL: Abdomen soft, non-tender, nondistended. Normal active bowel sounds MUSCULOSKELETAL: Extremities without clubbing, cyanosis, or edema. NEURO: Alert & Oriented x4 to person, place, time, situation. Moves all ext x4 Results - Labs CBC & Chem 7: 04/07/18 22:50 04/10/18 05:58 Laboratory Results - last 24 hr 04/15/18 04/15/18 04/16/18 17:53 21:12 03:05 POC Glucose 137 H 190 H 126 H 04/16/18 04/16/18 08:09 13:04 POC Glucose 124 H 116 H Microbiology 04/14/18 22:18 Clean Catch Urine Urine Culture - Final 50-100,000 cfu/mL mixed hai (probable contaminants ) - Imaging Chest X-Ray 04/07/18 22:26 CONCLUSION: No evidence of acute cardiopulmonary process. Head CT 04/07/18 22:26 CONCLUSION: 1. No acute intracranial abnormality is identified. 2. Please note that the entire superior aspect of the head was not imaged. . Chest CTA 04/08/18 00:18 CONCLUSION: 1. No PE or acute abnormality is identified to explain the patient's shortness of breath. 2. Intra and extrahepatic bile duct dilatation in this patient post cholecystectomy. The biliary system was dilated to some degree on the prior study from July 2014 suggesting that this is a chronic finding. 3. Coronary artery calcification. Head MRI 04/09/18 00:00 CONCLUSION: 1. No acute intracranial abnormality. Head MRA 04/09/18 00:00 CONCLUSION: 1. No large vessel stenosis or aneurysm. 2. Probable venous angioma posterior fossa. Neck MRA 04/09/18 00:00 CONCLUSION: 1. No carotid stenosis Venous Doppler Study 04/15/18 00:00 CONCLUSION: 1. No evidence of deep venous thrombosis. 2. Superficial venous thrombosis. Assessment and Plan - Assessment (1) Transient neurological symptoms Code(s): R29.818 - Other symptoms and signs involving the nervous system Status: Acute Plan: 1. diplopia. 2. ann marie/hyponatremia/respiratory acidosis and hypercapnea due to polypharmacy and untreated abby. Pt presented with concern for polypharmacy(long acting morphine,hydrocodone, tizanidine,primidone,ativan,lyrica,paxil) She says recently paxil was added and before that several drug tried for her depression that sedated her. She says cytomel also added for "depression" - comgmt with Neurology - comgmt with Pul Med - MRI/A brain --> NO acute findings - Pt's narcotics & other sedating medications were markedly decreased upon admission - ann marie, resolved, IVFs stopped - PT, oob - telemetry reviewed, occasionally into the 40s - will need sleep study for ABBY outpt 2. htn - narcotic withdrawl likely contributing - lisinopril - HCTZ - apresoline, increase to 100mg TID - started on catapress TTS-3 (04/13) - cardene drip off since AM. Will try to keep off. - appreciate input from Cardiology - Procardia 20mg TID (started 04/16) - repeat BP taken on RUE 142/63 - transfer to med/surgical floor - anticipate d/c to home in next 1-2 days with [facility]. 3. dm 2 home meds held on admission ssi. observe. 4. depression. 5. Thrombophlebitis, RUE - US RUE (04/15) --> no DVT, superficial venous phlebitis - ASA (2) Hypoxia Code(s): R09.02 - Hypoxemia Status: Acute (3) Polypharmacy Code(s): Z79.899 - Other packing and shipping clerk (current) drug therapy Status: Chronic
--- NOTE | 2018-04-16 14:05 | P.PN ---
Subjective Interval history: Alert and breathing easy. Off O2. Has been off CPAP. Will go to Tele. Physical Exam Vital signs: Vital Signs 04/15/18 16:00 04/15/18 18:00 04/15/18 20:00 Temperature 97.8 F 98 F Pulse Rate 55 L 49 L 58 L Respiratory Rate 16 19 Blood Pressure 144/67 H 190/90 H Pulse Oximetry 93 L 97 04/15/18 21:56 04/15/18 22:00 04/16/18 00:00 Temperature 98.2 F Pulse Rate 64 41 L Respiratory Rate 20 Blood Pressure 167/77 H Pulse Oximetry 93 L 92 L 04/16/18 02:00 04/16/18 04:00 04/16/18 06:00 Temperature 98.2 F Pulse Rate 54 L 45 L 39 L Respiratory Rate 21 Blood Pressure 150/67 H Pulse Oximetry 92 L 04/16/18 08:00 04/16/18 09:00 04/16/18 10:00 Temperature 98.5 F Pulse Rate 47 L 70 66 Respiratory Rate 14 24 Blood Pressure 163/72 H 129/69 Pulse Oximetry 94 L 04/16/18 12:00 Temperature 98.1 F Pulse Rate 41 L Respiratory Rate 18 Blood Pressure 138/65 Pulse Oximetry 91 L Intake & Output 04/15/18 04/16/18 04/16/18 18:59 06:59 18:59 Intake Total 480 / 480 250 / 250 Balance 480 / 480 250 / 250 Weight 123 kg Intake: Oral 480 / 480 250 / 250 Other: # Voids 4 2 Date of Last Bowel Movement 04/14/18 04/14/18 # Bowel Movements 1 Narrative: GENERAL: This is a obese W/F patient, in no apparent distress. CARDIOVASCULAR: Regular rate and rhythm without murmurs, gallops, or rubs. RESPIRATORY: Clear to auscultation. Breath sounds equal and decreased bilaterally. No wheezes, rales, or rhonchi. GASTROINTESTINAL: Abdomen soft, non-tender, nondistended. Normal active bowel sounds MUSCULOSKELETAL: Extremities without clubbing, cyanosis, or edema. NEURO: Alert & Oriented x4 to person, place, time, situation. Moves all ext x4 Results - Labs CBC & Chem 7: 04/07/18 22:50 04/10/18 05:58 Laboratory Results - last 24 hr 04/15/18 04/15/1804/16/18 17:53 21:12 03:05 POC Glucose 137 H 190 H 126 H 04/16/18 04/16/18 08:09 13:04 POC Glucose 124 H 116 H Microbiology 04/14/18 22:18 Clean Catch Urine Urine Culture - Final 50-100,000 cfu/mL mixed hai (probable contaminants ) - Imaging Impressions Venous Doppler Study 04/15/18 00:00 CONCLUSION: 1. No evidence of deep venous thrombosis. 2. Superficial venous thrombosis. Assessment and Plan - Assessment (1) Sleep apnea in adult Code(s): G47.30 - Sleep apnea, unspecified Status: Acute (2) Hypoventilation associated with obesity syndrome Code(s): E66.2 - Morbid (severe) obesity with alveolar hypoventilation Status : Acute (3) Respiratory failure with hypercapnia Code(s): J96.92 - Respiratory failure, unspecified with hypercapnia Status: Acute (4) Transient neurological symptoms Code(s): R29.818 - Other symptoms and signs involving the nervous system Status: Acute (5) Hypoxia Code(s): R09.02 - Hypoxemia Status: Acute (6) Polypharmacy Code(s): Z79.899 - Other retirement (current) drug therapy Status: Chronic (7) Renal insufficiency, mild Code(s): N28.9 - Disorder of kidney and ureter, unspecified Status: Acute - Plan 1. O2 2 L PRN daytime.and HS 2. Will transfer to [facility] 3. Use ventolin HFA , 2 puffs Q6H PRN 4. Continue weaning off pain meds. 5. Cont HTN meds. 6. Sleep test as OP 8.PT and OT Evaluation.
[2018-04-17] MEDS: Morphine Sulfate 30 MG SR Tablet PO SCH ×3 (02:42→18:47)
[2018-04-17] MEDS: Insulin NovoLOG Aspart Correctional Sugar Inj SQ SCH ×6 (02:45→21:26)
[2018-04-17] MEDS: hydroCHLOROthiazide 25 MG Tablet PO SCH (09:22)
[2018-04-17] MEDS: Primidone 50 MG Tablet PO SCH ×2 (09:22→21:25)
[2018-04-17] MEDS: Enoxaparin Inj 40 MG/0.4 ML Syringe SQ SCH (09:22)
[2018-04-17] MEDS: LORazepam 1 MG Tablet PO SCH ×2 (09:22→21:25)
--- NOTE | 2018-04-17 09:56 | P.PNIM ---
Subjective Interval history: Pt denies new complaints. Pt is eager to go home soon. Physical Exam Vital signs: 04/17/18 04:00 04/17/18 05:00 04/17/18 05:12 Temperature 98.2 F Pulse Rate 49 L 65 63 Respiratory Rate 18 10 L 13 Blood Pressure 136/86 Pulse Oximetry 90 L 93 L 92 L Narrative: GENERAL: This is a obese W/F patient, in no apparent distress. CARDIOVASCULAR: Regular rate and rhythm without murmurs, gallops, or rubs. RESPIRATORY: Clear to auscultation. Breath sounds equal and decreased bilaterally. No wheezes, rales, or rhonchi. GASTROINTESTINAL: Abdomen soft, non-tender, nondistended. Normal active bowel sounds MUSCULOSKELETAL: Extremities without clubbing, cyanosis, or edema. NEURO: Alert & Oriented x4 to person, place, time, situation. Moves all ext x4 Results - Labs CBC & Chem 7: 04/18/18 09:48 04/18/18 09:40 Laboratory Results - last 24 hr 04/16/18 04/16/18 04/16/18 13:04 18:21 23:10 POC Glucose 116 H 131 H 162 H 04/17/18 04/17/18 02:44 09:17 POC Glucose 120 H 421 H Microbiology 04/14/18 22:18 Clean Catch Urine Urine Culture - Final 50-100,000 cfu/mL mixed hai (probable contaminants ) Assessment and Plan - Assessment (1) Transient neurological symptoms Code(s): R29.818 - Other symptoms and signs involving the nervous system Status: Acute Plan: 1. diplopia. 2. ann marie/hyponatremia/respiratory acidosis and hypercapnea due to polypharmacy and untreated abby. Pt presented with concern for polypharmacy(long acting morphine,hydrocodone, tizanidine,primidone,ativan,lyrica,paxil) She says recently paxil was added and before that several drug tried for her depression that sedated her. She says cytomel also added for "depression" - comgmt with Neurology - comgmt with Pulm Med - MRI/A brain --> NO acute findings - Pt's narcotics & other sedating medications were markedly decreased upon admission - ann marie, resolved, IVFs stopped - PT, oob - telemetry reviewed, occasionally into the 40s - will need sleep study for ABBY outpt 2. htn - comgmt with Cardiology - narcotic withdrawl likely contributing - lisinopril - HCTZ - Decrease apresoline to 50mg BID - started on catapress TTS-3 (04/13) - cardene drip off since AM. Will try to keep off. - change procardia to procardia XL 30mg BID - transfer to med/surgical floor - anticipate d/c to home in next 1-2 days with HHC. 3. dm 2 home meds held on admission ssi. observe. - Pt's blood sugars spiked (04/17) following outside donut - continue to observe blood sugar readings - may need to resume OHA 4. depression. 5. Thrombophlebitis, RUE - US RUE (04/15) --> no DVT, superficial venous phlebitis - ASA (2) Hypoxia Code(s): R09.02 - Hypoxemia Status: Acute (3) Polypharmacy Code(s): Z79.899 - Other medical terminologist (current) drug therapy Status: Chronic
[2018-04-17] MEDS: Nystatin 100,000 UNITS/GM Powder 15 GM Bottle TOPICAL SCH ×4 (10:10→21:26)
[2018-04-17 13:55] LABS: Hemoglobin A1c 6.8 % (4.3-6.0)
--- NOTE | 2018-04-17 14:37 | P.PN ---
Subjective Interval history: Has less tremors . On O2 1 L. Narcotics being weaned off. On Antidepressants Physical Exam Vital signs: Vital Signs 04/16/18 14:53 04/16/18 15:00 04/16/18 16:00 Temperature 98.4 F Pulse Rate 68 67 Respiratory Rate 16 22 14 Blood Pressure 117/53 L Pulse Oximetry 91 L 93 L 04/16/18 16:33 04/16/18 17:00 04/16/18 18:00 Temperature Pulse Rate 62 47 L 55 L Respiratory Rate 15 12 16 Blood Pressure 117/53 L Pulse Oximetry 90 L 90 L 94 L 04/16/18 19:00 04/16/18 20:00 04/16/18 20:13 Temperature 98.5 F Pulse Rate 71 68 Respiratory Rate 13 16 20 Blood Pressure Pulse Oximetry 93 L 95 04/16/18 20:59 04/16/18 21:00 04/16/18 22:00 Temperature Pulse Rate 75 50 L Respiratory Rate 21 14 Blood Pressure Pulse Oximetry 92 L 91 L 91 L 04/16/18 23:00 04/17/18 00:00 04/17/18 00:52 Temperature 98.4 F Pulse Rate 67 60 Respiratory Rate 15 13 20 Blood Pressure 132/62 Pulse Oximetry 95 90 L 04/17/18 01:00 04/17/18 02:00 04/17/18 02:44 Temperature Pulse Rate 51 L 51 L 56 L Respiratory Rate 13 16 15 Blood Pressure 123/56 L Pulse Oximetry 91 L 91 L 90 L 04/17/18 03:00 04/17/18 04:00 04/17/18 05:00 Temperature Pulse Rate 51 L 49 L 65 Respiratory Rate 16 18 10 L Blood Pressure Pulse Oximetry 92 L 90 L 93 L 04/17/18 05:12 04/17/18 05:14 04/17/18 06:00 Temperature 98.2 F Pulse Rate 63 47 L Respiratory Rate 13 20 Blood Pressure 136/86 Pulse Oximetry 92 L 04/17/18 08:00 Temperature Pulse Rate 47 L Respiratory Rate 15 Blood Pressure Pulse Oximetry Intake & Output 04/16/18 04/17/18 04/17/18 18:59 06:59 18:59 Intake Total 600 / 600 360 / 360 Output Total 500 / 500 Balance 100 / 100 360 / 360 Weight 122 kg Intake: Oral 600 / 600 360 / 360 Output: Urine 500 / 500 Other: # Voids 3 3 Date of Last Bowel Movement 04/14/18 04/14/18 04/14/18 # Bowel Movements 0 0 Narrative: GENERAL: This is a obese W/F patient, in no apparent distress. CARDIOVASCULAR: Regular rate and rhythm without murmurs, gallops, or rubs. RESPIRATORY: Clear to auscultation. Breath sounds equal and decreased bilaterally. No wheezes, rales, or rhonchi. GASTROINTESTINAL: Abdomen soft, non-tender, nondistended. Normal active bowel sounds MUSCULOSKELETAL: Extremities without clubbing, cyanosis, or edema. NEURO: Alert & Oriented x4 to person, place, time, situation. Moves all ext x4 Results - Labs CBC & Chem 7: 04/07/18 22:50 04/10/18 05:58 Laboratory Results - last 24 hr 04/16/18 04/16/18 04/17/18 18:21 23:10 02:44 POC Glucose 131 H 162 H 120 H Hemoglobin A1c 04/17/18 04/17/18 04/17/18 09:17 12:27 12:27 POC Glucose 421 H 119 H Hemoglobin A1c 6.8 H Assessment and Plan - Assessment (1) Sleep apnea in adult Code(s): G47.30 - Sleep apnea, unspecified Status: Acute (2) Hypoventilation associated with obesity syndrome Code(s): E66.2 - Morbid (severe) obesity with alveolar hypoventilation Status : Acute (3) Respiratory failure with hypercapnia Code(s): J96.92 - Respiratory failure, unspecified with hypercapnia Status: Acute (4) Transient neurological symptoms Code(s): R29.818 - Other symptoms and signs involving the nervous system Status: Acute (5) Hypoxia Code(s): R09.02 - Hypoxemia Status: Acute (6) Polypharmacy Code(s): Z79.899 - Other technical services consultant (current) drug therapy Status: Chronic (7) Renal insufficiency, mild Code(s): N28.9 - Disorder of kidney and ureter, unspecified Status: Acute - Plan 1. O2 2 L PRN daytime.and HS 2. Labs in am 3. Use ventolin HFA , 2 puffs Q6H PRN 4. Continue weaning off pain meds. 5. Cont Catapres, Nifedipine, Ativan 6. Sleep test as OP 8.PT and OT Evaluation.
[2018-04-17] MEDS: hydrALAZINE 50 MG Tablet PO SCH (21:25)
[2018-04-18] MEDS: Morphine Sulfate 30 MG SR Tablet PO SCH ×2 (01:48→09:03)
[2018-04-18] MEDS: Insulin NovoLOG Aspart Correctional Sugar Inj SQ SCH ×2 (03:06→09:01)
[2018-04-18] MEDS: hydroCHLOROthiazide 25 MG Tablet PO SCH (09:02)
[2018-04-18] MEDS: Primidone 50 MG Tablet PO SCH (09:03)
[2018-04-18] MEDS: Enoxaparin Inj 40 MG/0.4 ML Syringe SQ SCH (09:03)
[2018-04-18] MEDS: LORazepam 1 MG Tablet PO SCH (09:04)
[2018-04-18] MEDS: hydrALAZINE 50 MG Tablet PO SCH (09:05)
[2018-04-18] MEDS: Nystatin 100,000 UNITS/GM Powder 15 GM Bottle TOPICAL SCH (09:05)
[2018-04-18 09:18] VITALS: BP 143/67; RESP 18; TEMP 98; O2SAT 93
--- NOTE | 2018-04-18 09:31 | P.PNIM ---
Subjective Interval history: eager for dc in chair. smiling. ok with reduced pain med dosing. Physical Exam Vital signs: Vital Signs 04/17/18 10:00 04/17/18 12:00 04/17/18 16:00 Temperature 98.5 F 98.1 F Pulse Rate 80 52 L 81 Respiratory Rate 12 16 Blood Pressure 126/58 L 177/75 H Pulse Oximetry 91 L 93 L 04/17/18 20:00 04/17/18 21:25 04/18/18 00:00 Temperature 98.3 F 98 F Pulse Rate 63 64 Respiratory Rate 17 22 20 Blood Pressure 151/78 H 141/75 H Pulse Oximetry 93 L 93 L 04/18/18 03:03 04/18/18 03:05 04/18/18 04:00 Temperature 97.6 F Pulse Rate 49 L Respiratory Rate 20 20 20 Blood Pressure 146/77 H Pulse Oximetry 94 L 04/18/18 08:00 Temperature 98.0 F Pulse Rate 67 Respiratory Rate 18 Blood Pressure 143/67 H Pulse Oximetry 93 L Intake & Output 04/17/18 04/18/18 04/18/18 18:59 06:59 18:59 Intake Total 420 / 420 Output Total 650 / 650 Balance -230 / -230 Weight 123.7 kg Intake: Oral 420 / 420 Output: Urine 650 / 650 Other: # Voids 4 Date of Last Bowel Movement 04/14/18 04/17/18 # Bowel Movements 1 nad heart reg lung cta abd s/nt ext no edema Results - Labs CBC & Chem 7: 04/07/18 22:50 04/10/18 05:58 Laboratory Results - last 24 hr 04/17/18 04/17/18 04/17/18 09:17 12:27 12:27 POC Glucose 421 H 119 H Hemoglobin A1c 6.8 H 04/17/18 04/17/18 04/18/18 17:08 20:29 07:57 POC Glucose 143 H 149 H 119 H Hemoglobin A1c Assessment and Plan - Assessment (1) Transient neurological symptoms Code(s): R29.818 - Other symptoms and signs involving the nervous system Status: Acute Plan: 1. diplopia. 2. ann marie/hyponatremia/respiratory acidosis and hypercapnea due to polypharmacy and untreated abby. Pt presented with concern for polypharmacy(long acting morphine,hydrocodone, tizanidine,primidone,ativan,lyrica,paxil) She says recently paxil was added and before that several drug tried for her depression that sedated her. She says cytomel also added for "depression" - comgmt with Neurology - comgmt with Pulm Med - MRI/A brain --> NO acute findings - Pt's narcotics & other sedating medications were markedly decreased upon admission - ann marie, resolved, IVFs stopped - PT, oob - telemetry reviewed, occasionally into the 40s - will need sleep study for ABBY outpt called her pain doc. Dr Hinds. will give 1 week supply of her pain meds at 50 % dose. he will see her in the next week. 2. htn - comgmt with Cardiology - narcotic withdrawal likely contributing - lisinopril - HCTZ - Decrease apresoline to 50mg BID - started on catapress TTS-3 (04/13) - change procardia to procardia XL 30mg BID - transferred to med/surgical floor dc home. called pcp to f/u. 3. dm 2 home meds held on admission ssi. observe. resume home meds. 4. depression. 5. Thrombophlebitis, RUE - US RUE (04/15) --> no DVT, superficial venous phlebitis - ASA (2) Hypoxia Code(s): R09.02 - Hypoxemia Status: Acute (3) Polypharmacy Code(s): Z79.899 - Other watermaster (current) drug therapy Status: Chronic
[2018-04-18 10:19] LABS: Baso % (Auto) 0.7 % (0.0-2.0); Eos # (Auto) 0.1 th/mm3 (0.0-0.4); Eos % (Auto) 1.5 % (0.0-4.0); Hematocrit 37.4 % (35.0-46.0); Hemoglobin 11.8 gm/dL (11.6-15.3); Lymph # (Auto) 1.4 th/mm3 (1.0-4.8); Lymph % (Auto) 29.8 % (9.0-44.0); Mean Corpuscular HGB Conc 31.6 % (32.0-36.0); Mean Corpuscular Hemoglobin 26.1 pg (27.0-34.0); Mean Corpuscular Volume 82.7 fL (80.0-100.0); Mean Platelet Volume 8.1 fL (7.0-11.0); Mono # (Auto) 0.3 th/mm3 (0.0-0.9); Mono % (Auto) 7.1 % (0.0-8.0); Neut # (Auto) 2.9 th/mm3 (1.8-7.7); Neut % (Auto) 60.9 % (16.0-70.0); Platelet Count 228 th/mm3 (150-450); Red Blood Count 4.53 mil/mm3 (4.00-5.30); Red Cell Distribution Width 17.3 % (11.6-17.2); White Blood Count 4.8 th/mm3 (4.0-11.0)
[2018-04-18 10:44] LABS: Calcium 8.9 mg/dL (8.5-10.1); Carbon Dioxide 25.1 meq/L (21.0-32.0); Potassium 3.3 meq/L (3.5-5.1)
[2018-04-18 19:42] VITALS: PULSE 63
--- NOTE | 2018-04-27 13:23 | P.DS ---
Date of admission: 04/08/18 05:48 Primary care physician: Yash Brock MD Anticipated date of discharge: 04/18/18 Brief History from admission: 62-year-old morbidly obese female with underlying major depression, PTSD, chronic back pain leading to disability presents with 2 days of constant dizziness that waxes and wanes in severity and weakness that is generalized in nature. She reports some blurred/double vision which improves when she closed one or the other eye. No facial droop, no trouble swallowing, no dysarthria, no unilateral leg weakness, no numbness or tingling of extremities. No syncopal events or seizures. No chest pain, no shortness of breath, no headache , and no neck pain. Patient reports that her chronic low back pain is slightly worse than usual but that its character has not changed significantly in the past 2 days. She is currently following with a neurologist who is working up her bilateral upper extremity tremors; these tremors have been present for at least 2 months and have been progressively worsening and of late have been involving lower extremities as well. She also reports some degree of imbalance over these past 2 months but not as bad as it was in the past 2 days. She was found to be hypoxic on room air in triage with an O2 sat that varies from 84% to 90% on room air. She does have a history of "asthma" and a remote history of cigarette smoking but she has never required oxygen at home. She has no history of pulmonary embolus or DVT. No unilateral leg swelling, no hemoptysis , no exogenous estrogen use. No history of heart failure or AL. No history of strokes. Time of onset was approximately 48 hours ago. It is noted on outpatient record review that her sats are often in the low 90s when she is in the office. 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 She likely has some underlying obesity/hypoxemia syndrome. She reports that she has never had a sleep study and doesn't wear CPAP. ER workup negative for pulmonary embolus or any significant acute findings in the chest. CT brain negative for acute findings. Creatinine a bit elevated at 1.6 which is above her baseline creatinine of around 1-1.1. She is mildly anemic which is chronic and stable. DS: Diagnosis - Discharge Diagnosis (1) Transient neurological symptoms Status: Acute (2) Hypoxia Status: Acute (3) Polypharmacy Status: Chronic DS: Medications - Discharge Medications Prescriptions: clonidine [[id number]] 1 patch TRANSDERMAL Q7D #10 ea hydralazine 50 mg PO BID #60 tab morphine 30 mg PO Q8H #21 tab nifedipine 30 mg PO BID #60 tab terazosin 5 mg PO HS 30 Days #30 cap DS: Summary Hospital Course: - Assessment (1) Transient neurological symptoms Code(s): R29.818 - Other symptoms and signs involving the nervous system Status: Acute Plan: 1. diplopia. 2. ann marie/hyponatremia/respiratory acidosis and hypercapnea due to polypharmacy and untreated abby. Pt presented with concern for polypharmacy(long acting morphine,hydrocodone, tizanidine,primidone,ativan,lyrica,paxil) She says recently paxil was added and before that several drug tried for her depression that sedated her. She says cytomel also added for "depression" - comgmt with Neurology - comgmt with Pulm Med - MRI/A brain --> NO acute findings - Pt's narcotics & other sedating medications were markedly decreased upon admission - ann marie, resolved, IVFs stopped - PT, oob - telemetry reviewed, occasionally into the 40s - will need sleep study for ABBY outpt called her pain doc. Dr Hinds. will give 1 week supply of her pain meds at 50 % dose. he will see her in the next week. 2. htn - comgmt with Cardiology - narcotic withdrawal likely contributing - lisinopril - HCTZ - Decrease apresoline to 50mg BID - started on catapress TTS-3 (04/13) - change procardia to procardia XL 30mg BID - transferred to med/surgical floor dc home. called pcp to f/u. 3. dm 2 home meds held on admission ssi. observe. resume home meds. 4. depression. 5. Thrombophlebitis, RUE - US RUE (04/15) --> no DVT, superficial venous phlebitis - ASA (2) Hypoxia Code(s): R09.02 - Hypoxemia Status: Acute (3) Polypharmacy Code(s): Z79.899 - Other mine engineering superintendent (current) drug therapy Status: Chronic - Time Spent with Patient Total time spent providing and/or coordinating discharge services: Greater than 30 minutes - Quality: VTE Deep Vein Thrombosis/Pulmonary Embolism Present on Admission: No Exam Vital signs: heart reg lung cta abd s/nt ext no edema Results Procedures completed during hospitalization: venous doppler cta chest mri/a brain/neck pft echo. - Impressions ITS Impressions Chest X-Ray 04/07/18 22:26 CONCLUSION: No evidence of acute cardiopulmonary process. Head CT 04/07/18 22:26 CONCLUSION: 1. No acute intracranial abnormality is identified. 2. Please note that the entire superior aspect of the head was not imaged. . Chest CTA 04/08/18 00:18 CONCLUSION: 1. No PE or acute abnormality is identified to explain the patient's shortness of breath. 2. Intra and extrahepatic bile duct dilatation in this patient post cholecystectomy. The biliary system was dilated to some degree on the prior study from July 2014 suggesting that this is a chronic finding. 3. Coronary artery calcification. Head MRI 04/09/18 00:00 CONCLUSION: 1. No acute intracranial abnormality. Head MRA 04/09/18 00:00 CONCLUSION: 1. No large vessel stenosis or aneurysm. 2. Probable venous angioma posterior fossa. Neck MRA 04/09/18 00:00 CONCLUSION: 1. No carotid stenosis Percent stenosis is calculated using the diameter of the stenotic region over the diameter of the normal distal internal carotid artery Venous Doppler Study 04/15/18 00:00 CONCLUSION: 1. No evidence of deep venous thrombosis. 2. Superficial venous thrombosis. Discharge Plan - Discharge Disposition Patient Disposition: 01 Discharge Home - Discharge Condition Condition: Stable - Discharge Order Discharge Orders: Discharge Order (Routine); Ordered 04/18/18 Ordered By: Kike Paula - Discharge Details Anticipated Discharge Date: 04/18/18 - Physicians Team Primary Care Provider: Yash Brock Attending Provider: Kike Paula Other Providers: Ba Dutton MD ; Philip Schneider MD ; Jonathan Minaya MD
== END 2018-04-18 11:46 | disposition home or self-care (01) ==
LOC: PHED 20:34 → PHEDA 04-08 02:05 → INTOOBSV 04-08 02:05 → PHEDH 04-08 06:06 → PH3 04-08 07:15 → PHICU 04-08 14:16 → HIMC 04-08 21:20 → N04 04-17 16:46
PROVIDERS: ADMIT Hospitalist; ATTEND Hospitalist